=== PATIENT | male | born 1945 | race Caucasian/White ===

== ENCOUNTER 2017-10-14 08:35 | Emergency (ER) | payer OTHER, SELFPAY ==
[2017-10-14 08:43] VITALS: BP 160/82; PULSE 64; RESP 20; TEMP 36.8; O2SAT 96
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
[2017-10-14 09:38] LABS: Abs Immature Grans 0.03 k/cumm (0.0-0.09); Absolute Basophil Count 0.04 k/cumm (0.0-0.2); Absolute Eosinophil Count 0.25 k/cumm (0.0-0.7); Absolute Lymphocyte Count 1.79 k/cumm (1.2-3.4); Absolute Monocyte Count 0.89 k/cumm (0.11-0.7); Absolute Neutrophil Count 4.49 k/cumm (1.2-6.7); Basophils % 0.5; Eosinophils % 3.3; HCT 43.2 % (40.0-50.0); HGB 14.7 g/dL (13.5-17.5); Immature Grans % 0.4; Lymphocytes % 23.9; Mean Corpuscular Hemoglobin 30.1 pg (27.0-33.0); Mean Corpuscular Volume 88.3 fL (80-95); Mean Platelet Volume 11.1 fL (8.0-11.0); Monocytes % 11.9; Platelet Count 144 x1000/uL (130-400); RBC 4.89 m/cumm (4.50-6.00); RBC Distribution Width 13.7 % (11.8-14.1); White Blood Cell Count 7.49 k/cumm (4.4-10.8)
[2017-10-14 10:04] LABS: ALT 35 U/L (12-78); AST 18 U/L (15-37); Albumin 3.7 g/dL (3.4-5.0); Alkaline Phosphatase 103 U/L (46-116); Anion Gap 6.8 mmol/L (3-11); BUN 20 mg/dL (7-18); Bilirubin, Total 0.7 mg/dL (0.2-1.0); CO2 26.2 mmol/L (21.0-32.0); CREATININE 0.83 mg/dL (0.70-1.30); Calcium 8.8 mg/dL (8.5-10.1); Chloride 106 mmol/L (98-107); Glucose 125 mg/dL (70-100); Sodium 139 mmol/L (136-145); Total Protein 7.4 g/dL (6.4-8.2)
[2017-10-14 10:09] LABS: Troponin I < 0.02 ng/mL (0.00-0.06)
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
== END 2017-10-14 11:08 | disposition home or self-care (01) ==
PROVIDERS: Emergency Provider Student in an Organized Health Care Education/Training Program; PCP Family Medicine
DX: R07.89 Other chest pain (principal); M79.641 Pain in right hand; V53.0XXA Driver of pick-up truck or van injured in collision with car, pick-up truck or van in nontraffic accident, initial encounter; I10 Essential (primary) hypertension
CPT/HCPCS: 36415; 71250; 80053; 93005; 99285; 73110; 73130; 84484; 85025; 93010; 99284

== ENCOUNTER 2017-10-23 11:29 | Outpatient (RCR) | payer SELFPAY | END 2017-10-24 23:59 | disposition home or self-care (01) | LOC: CR 11:29 | PROVIDERS: PCP Family Medicine; Visit Provider Family Medicine | DX: Z95.5 Presence of coronary angioplasty implant and graft (principal); Z51.89 Encounter for other specified aftercare ==

== ENCOUNTER 2017-11-20 08:00 | Outpatient (RCR) | payer SELFPAY | END 2017-11-23 23:59 | disposition home or self-care (01) | LOC: CR 08:00 | PROVIDERS: PCP Family Medicine; Visit Provider Family Medicine | DX: Z95.5 Presence of coronary angioplasty implant and graft (principal); Z51.89 Encounter for other specified aftercare ==

== ENCOUNTER 2017-12-23 08:00 | Outpatient (RCR) | payer SELFPAY | END 2017-12-24 23:59 | disposition home or self-care (01) | LOC: CR 08:00 | PROVIDERS: PCP Family Medicine; Visit Provider Family Medicine | DX: Z95.5 Presence of coronary angioplasty implant and graft (principal); Z51.89 Encounter for other specified aftercare ==

== ENCOUNTER 2018-01-14 01:28 | Outpatient (CLI) | payer MEDICARE, BC, SELFPAY ==
[2018-01-14 11:17] LABS: Bilirubin Negative (Negative); Blood Negative (Negative); Clarity Clear; Glucose Negative (Negative); Ketones Negative (Negative); Leukocyte Esterase Negative (Negative); Nitrite Negative (Negative); Urobilinogen 0.2 EU/dL (Up TO 0.2); pH 5.5 (5-8)
[2018-01-14 11:23] LABS: Anion Gap 8.6 mmol/L (3-11); BUN 21 mg/dL (7-18); CO2 25.4 mmol/L (21.0-32.0); CREATININE 0.92 mg/dL (0.70-1.30); Calcium 9.5 mg/dL (8.5-10.1); Chloride 106 mmol/L (98-107); Glucose 122 mg/dL (70-100); Potassium 4.2 mmol/L (3.5-5.1); Sodium 140 mmol/L (136-145)
[2018-01-14 12:12] LABS: Hemoglobin A1C 5.6 % (4.5-6.2)
[2018-01-16 10:10] LABS: PSA, Screening 1.6 ng/ml (0-6.5)
== END 2018-01-14 01:48 ==
PROVIDERS: PCP Family Medicine; Visit Provider Family Medicine
DX: N40.2 Nodular prostate without lower urinary tract symptoms (principal); R73.03 Prediabetes; R39.9 Unspecified symptoms and signs involving the genitourinary system; Z12.5 Encounter for screening for malignant neoplasm of prostate
CPT/HCPCS: 36415; 80048; 84153; 81003; 83036

== ENCOUNTER 2018-01-20 02:07 | Outpatient (CLI) | payer MEDICARE, BC, SELFPAY ==
--- NOTE | 2018-01-20 09:00 | SATEXT_ITS ---
January 20, 2018 0900 h Assessment: Mr. Peters presents for nutritional counseling for prediabetes. His fasting blood sugar was 122. His A1C however was WNL. He is 67 and 220 lbs. His BMI is 35 consistent with class 2 obesity. Mr. Peters describes an active lifestyle. His dietary recall shows that he eats a banana, orange juice , yogurt in the morning. His lunch is a frozen meal or bologna and cheese and fruit and pudding. He describes his evening meal as typical meat, starch, veggie, however his portions are large. He says he goes back for seconds. He states he snacks in the evening, sometimes ice cream. Nutritional Diagnosis: Altered nutrition related laboratory value as indicated by high fasting blood glucose. Intervention: We discussed a carbohydrate consistent nutrition therapy for prediabetes. With regard to Mr. Peters's reports of over-eating in the evening , I suggested that he eat more at breakfast and that we make a meal plan of evenly sized meals. Based on his current eating pattern, I devised a meal plan of carbohydrate consistent and also calorie consistent meals and one snack in the evening consisting of 15 grams of carb or less, such popcorn. Encouraged Mr. Peters to first turn to veggies, then proteins if he wants seconds at meals. With regard to his weight and Mr. Peters's concern about his weight gain, encouraged him to drink at least 64 oz. of water daily and I made his meal plan low in sodium. I also discussed with him the importance of building up muscle as people age and muscle's role in calorie burning. We discussed that physical activity is very effective in preventing diabetes as well as other lifestyle changes. Mr. Peters verbalized a good understanding of our session. Monitoring and Evaluation: 1. Mr. Peters will self monitor and evaluate his progress. 2. Provided my contact information and encouraged Mr. Peters to return to follow up with me at any time. Thank you for the referral. Total time spent face to face with patient was 27 minutes.
== END 2018-01-20 02:27 ==
PROVIDERS: PCP Family Medicine; Visit Provider Dietitian, Registered
DX: R73.09 Other abnormal glucose (principal); Z68.35 Body mass index [BMI] 35.0-35.9, adult; Z71.3 Dietary counseling and surveillance
CPT/HCPCS: 97802

== ENCOUNTER 2018-01-22 08:00 | Outpatient (RCR) | payer SELFPAY | END 2018-01-23 23:59 | disposition home or self-care (01) | LOC: CR 08:00 | PROVIDERS: PCP Family Medicine; Visit Provider Family Medicine | DX: Z95.5 Presence of coronary angioplasty implant and graft (principal); Z51.89 Encounter for other specified aftercare ==

== ENCOUNTER 2018-02-19 15:03 | Outpatient (RCR) | payer SELFPAY | END 2018-02-23 23:59 | disposition home or self-care (01) | LOC: CR 15:03 | PROVIDERS: PCP Family Medicine; Visit Provider Family Medicine | DX: Z95.5 Presence of coronary angioplasty implant and graft (principal); Z51.89 Encounter for other specified aftercare ==

== ENCOUNTER 2018-03-26 08:00 | Outpatient (RCR) | payer SELFPAY | END 2018-03-26 23:59 | disposition home or self-care (01) | LOC: CR 08:00 | PROVIDERS: PCP Family Medicine; Visit Provider Family Medicine | DX: Z95.5 Presence of coronary angioplasty implant and graft (principal); Z51.89 Encounter for other specified aftercare ==

== ENCOUNTER 2018-04-14 08:00 | Outpatient (RCR) | payer SELFPAY | END 2018-04-23 23:59 | disposition home or self-care (01) | LOC: CR 08:00 | PROVIDERS: PCP Family Medicine; Visit Provider Family Medicine | DX: Z95.5 Presence of coronary angioplasty implant and graft (principal); Z51.89 Encounter for other specified aftercare ==

== ENCOUNTER 2018-05-21 08:00 | Outpatient (RCR) | payer SELFPAY | END 2018-05-24 23:59 | disposition home or self-care (01) | LOC: CR 08:00 | PROVIDERS: PCP Family Medicine; Visit Provider Family Medicine | DX: Z95.5 Presence of coronary angioplasty implant and graft (principal); Z51.89 Encounter for other specified aftercare ==

== ENCOUNTER 2018-06-23 08:00 | Outpatient (RCR) | payer SELFPAY | END 2018-06-23 23:59 | disposition home or self-care (01) | LOC: CR 08:00 | PROVIDERS: PCP Family Medicine; Visit Provider Family Medicine | DX: Z95.5 Presence of coronary angioplasty implant and graft (principal); Z51.89 Encounter for other specified aftercare ==

== ENCOUNTER 2018-06-24 05:10 | Outpatient (RCR) | payer SELFPAY | END 2018-07-24 23:59 | disposition home or self-care (01) | LOC: CR 05:10 | PROVIDERS: PCP Family Medicine; Visit Provider Family Medicine | DX: Z95.5 Presence of coronary angioplasty implant and graft (principal); Z51.89 Encounter for other specified aftercare ==

== ENCOUNTER 2018-07-23 13:30 | Outpatient (RCR) | payer SELFPAY | END 2018-07-24 23:59 | disposition home or self-care (01) | LOC: CR 13:30 | PROVIDERS: PCP Family Medicine; Visit Provider Family Medicine | DX: Z51.89 Encounter for other specified aftercare (principal) ==

== ENCOUNTER 2018-08-20 11:23 | Outpatient (RCR) | payer SELFPAY | END 2018-08-23 23:59 | disposition home or self-care (01) | LOC: CR 11:23 | PROVIDERS: PCP Family Medicine; Visit Provider Family Medicine | DX: Z51.89 Encounter for other specified aftercare (principal) ==

== ENCOUNTER 2018-09-22 13:26 | Outpatient (RCR) | payer SELFPAY | END 2018-09-23 23:59 | disposition home or self-care (01) | LOC: CR 13:26 | PROVIDERS: PCP Family Medicine; Visit Provider Family Medicine | DX: Z51.89 Encounter for other specified aftercare (principal) ==

== ENCOUNTER 2018-10-22 08:00 | Outpatient (RCR) | payer SELFPAY | END 2018-10-24 23:59 | disposition home or self-care (01) | LOC: CR 08:00 | PROVIDERS: PCP Family Medicine; Visit Provider Family Medicine | DX: Z51.89 Encounter for other specified aftercare (principal) ==

== ENCOUNTER 2018-11-19 11:55 | Outpatient (RCR) | payer SELFPAY | END 2018-11-23 23:59 | disposition home or self-care (01) | LOC: CR 11:55 | PROVIDERS: PCP Family Medicine; Visit Provider Family Medicine | DX: Z51.89 Encounter for other specified aftercare (principal) ==

== ENCOUNTER 2018-12-15 08:00 | Outpatient (RCR) | payer SELFPAY | END 2018-12-24 23:59 | disposition home or self-care (01) | LOC: CR 08:00 | PROVIDERS: PCP Family Medicine; Visit Provider Family Medicine | DX: Z51.89 Encounter for other specified aftercare (principal) ==

== ENCOUNTER 2019-01-19 15:14 | Outpatient (RCR) | payer SELFPAY | END 2019-01-23 23:59 | disposition home or self-care (01) | LOC: CR 15:14 | PROVIDERS: PCP Family Medicine; Visit Provider Family Medicine | DX: Z51.89 Encounter for other specified aftercare (principal) ==

== ENCOUNTER 2019-02-11 08:00 | Outpatient (RCR) | payer SELFPAY | END 2019-02-23 23:59 | disposition home or self-care (01) | LOC: CR 08:00 | PROVIDERS: PCP Family Medicine; Visit Provider Family Medicine | DX: Z51.89 Encounter for other specified aftercare (principal) ==

== ENCOUNTER 2019-03-17 02:17 | Outpatient (CLI) | payer MEDICARE, BC, SELFPAY ==
[2019-03-17 11:59] LABS: Anion Gap 10.8 mmol/L (3-11); BUN 20 mg/dL (7-18); CO2 25.2 mmol/L (21.0-32.0); CREATININE 0.88 mg/dL (0.70-1.30); Calcium 9.1 mg/dL (8.5-10.1); Chloride 109 mmol/L (98-107); Glucose 116 mg/dL (74-106); Potassium 4.1 mmol/L (3.5-5.1); Sodium 145 mmol/L (136-145)
== END 2019-03-17 02:37 ==
PROVIDERS: PCP Family Medicine; Visit Provider Family Medicine
DX: I25.10 Atherosclerotic heart disease of native coronary artery without angina pectoris (principal)
CPT/HCPCS: 36415; 80048

== ENCOUNTER 2019-03-25 08:00 | Outpatient (RCR) | payer SELFPAY | END 2019-03-26 23:59 | disposition home or self-care (01) | LOC: CR 08:00 | PROVIDERS: PCP Family Medicine; Visit Provider Family Medicine | DX: Z51.89 Encounter for other specified aftercare (principal) ==

== ENCOUNTER 2019-03-27 03:47 | Outpatient (RCR) | payer SELFPAY | END 2019-04-24 23:59 | disposition home or self-care (01) | LOC: CR 03:47 | PROVIDERS: PCP Family Medicine; Visit Provider Family Medicine | DX: Z51.89 Encounter for other specified aftercare (principal) ==

== ENCOUNTER 2019-04-25 03:31 | Outpatient (RCR) | payer SELFPAY | END 2019-05-25 23:59 | disposition home or self-care (01) | LOC: CR 03:31 | PROVIDERS: PCP Family Medicine; Visit Provider Family Medicine | DX: Z51.89 Encounter for other specified aftercare (principal) ==

== ENCOUNTER → 2019-07-16 08:00 | Outpatient (BNVA) | payer MEDICARE, BC, SELFPAY | PROVIDERS: PCP Family Medicine; Referring Provider Family Medicine; Visit Provider Surgery | DX: Z12.11 Encounter for screening for malignant neoplasm of colon (principal); Z86.010 Personal history of colon polyps ==

== ENCOUNTER 2019-08-02 07:09 | Day surgery (SDC) | payer MEDICARE, BC, SELFPAY ==
--- NOTE | 2019-08-02 06:52 | W.COLOREPORT ---
Date of service: 08/02/19 Time of Service: 08:51 Colonoscopy Report Date of procedure: 08/02/19 Pre-op diagnosis general: Hx of polyps Post-op diagnosis procedure note: same (10 polyps) Procedure: Colonoscopy with polypectomy Surgeon: Andie Abarca Anesthesia proc note operative: other (General/ ASA 2/ andrew Livingston CRNA) Estimated blood loss (mL): 3 Pathology: other (10 polyps) Complications: None Disposition: same day Indications: 74 year old male with a PMHx of tubular and tubulovillous adenomas in 2017 who is here to discuss a colonoscopy. He denies any changes in bowel habits. He has a family history of colon cancer in his sister. No cardiac complains since he had a stent placed more then 5 years ago. Plan for Colonoscopy under sedation Risks, benefits and complications have been reviewed. Complications include but are not limited to bleeding, pain, perforation, missed small lesion/polyp, sore throat, aspiration and adverse reaction to the medications. Questions were entertained and answered to their satisfaction and they wished to proceed. No guarantees were given or implied Prep: Miralax/Dulcolax Procedure Start Time: 08:51 Procedure End Time: 09:32 Retraction Time: 30 minutes Findings: multiple polyps throughout the colon Procedure Description: After informed consent was obtained the patient was taken to the procedure room and placed in a left decubitous position. Monitors were applied and a time out was done. The patients name, date of , procedure, allergies to medications and metal in their body was reviewed. The patient was then sedated. Once sedated and comfortable a rectal exam was done. External exam revealed a small skin tag. Internal exam revealed a normal sphincter tone and no palpable masses. The prostate felt smooth. The scope was then introduced and retro-flexed. No internal hemorrhoids were identified. The scope was then advanced to the cecum without difficulty. The TI and appendiceal orifice were identified. The prep was good. The scope was then slowly retracted over 32 minutes back into the rectum. Polyps were removed with cold forceps in the ascending colon x2, Transverse colon x4, descending colon x3, and rectal polyp x1. The scope was removed and the patient was woken up and taken back to Same day surgery in stable condition. The patient tolerated the procedure well and there were no immediate complications. Follow up: The patient should follow up in 3-5 years unless they develop changes in bowel habits or other new gastrointestinal complaints.
--- NOTE | 2019-08-02 06:53 | W.PM.DSUDISC ---
Discharge Plan Disposition Patient Disposition: HOME Condition: Good Discharge Details Reason For Visit: Hx of colon polyps Attending Provider: Andie Abarca Primary Care Provider: Vlad Livingston Home Meds and New Rx's Prescriptions: Continued tamsulosin [Flomax] 0.4 mg capsule 0.4 mg PO DAILY Qty: 90 RF: 4 terbinafine HCl 1 % cream 1 applic TP BID Qty: 30 RF: 2 loratadine 10 MG tablet,disintegrating 10 mg PO DAILY PRNRF: 0 aspirin [Aspirin Low-Strength] 81 MG tablet,chewable 81 mg PO DAILY RF: 0 nitroglycerin 0.4 mg tablet, sublingual 0.4 mg Sublingual ONCE PRN (Reason: chest pain) Qty: 50 RF: 0 atorvastatin 80 mg tablet 80 mg PO DAILY Qty: 90 RF: 4 Discontinued bisacodyl [Dulcolax (bisacodyl)] 5 mg tablet,delayed release (DR/EC) 5 mg PO ONCE Qty: 4 RF: 0 polyethylene glycol 3350 17 gram powder in packet 255 g PO DAILY Qty: 15 RF: 0 No Action pseudoephedrine HCl [Sudafed] 30 mg Tablet 30 mg PO ONCE PRNRF: 0 Discharge Instructions Instructions: Colorectal Polyps (DC) Additional Instructions: Findings: 10 small polyps Follow up: 3-5 years Please call if you develop: fevers >101.5 Nausea or Vomiting Abdominal pain that is not transient DAY SURGERY UNIT POST ENDOSCOPY INSTRUCTIONS 1. Because there will be medication in your system for the next 24 hours, you may feel a little sleepy. Your coordination will be affected. Therefore: a. Do not drive or operate dangerous equipment for 24 hours. b. Do not drink alcohol beverages for 24 hours (not even beer). c. Plan to go home and rest for the day. 2. Generally there are no restrictions on your activity after a day or so has gone by, but you may feel a bit fatigued for a few days. 3 After you arrive home you may have a light meal and return to a normal diet as you can tolerate it without feeling sick to your stomach. 4. After surgery, you may feel pain or discomfort. This should be only transient, but if it persists please contact your doctor. 5. If there are any questions regarding the findings of your procedure, please feel free to contact your doctor. 6. If you are unable to contact your doctor with a problem, contact the [facility] at [phone]. 4. Continue all your regular medications unless directed otherwise. I understand the above instructions and have no questions. Signature of Patient or Responsible Adult Escort Date/Time Name of Responsible Adult Escort Signature of Nurse Date/Time Activity:: Activity as Tolerated Diet:: As Tolerated Discharge Orders Discharge Orders: Discharge Order (Routine); Ordered 08/02/19 Ordered By: Andie Abarca
[2019-08-02 07:15] VITALS: PULSE 74; RESP 19; TEMP 36.8; O2SAT 96
[2019-08-02] MEDS: Lactated Ringers 1,000 ML 80 ML IV (07:45)
--- NOTE | 2019-08-02 08:50 | BOWEL_PTH ---
PATIENT: Osbaldo Peters LOC: [facility] U#:[id number] AGE/SX: 74/M ROOM: RE08/02/[address]: Andie Abarca MD : [id number] BED: DIS: 08/02/2019 SPEC #: [id number] RECD: 08/02/19 12:24 STATUS: SUNDAR REAmy #: [id number] JILL: 08/02/19 08:[address]: Andie Abarca DEPT: Surgical Specimen RECD BY: Florinda Adler ENTERED: 08/02/19 12:26 SP TYPE: Bowel OTHR DR: Vlad Livingston MD Tissues: 1 - BIOPSY BOWEL 2 - BIOPSY BOWEL 3 - BIOPSY BOWEL 4 - BIOPSY BOWEL Procedures: GROSS AND MICRO LEVEL 4 Comments: [id number]
[2019-08-02 10:12] VITALS: BP 136/71; PULSE 59; RESP 18; TEMP 36.3; O2SAT 97
== END 2019-08-02 10:32 | disposition home or self-care (01) ==
PROVIDERS: PCP Family Medicine; Visit Provider Surgery
PROC: 0DJD8ZZ Inspection of Lower Intestinal Tract, Via Natural or Artificial Opening Endoscopic (ICD-10-PCS; CPT 45378; principal; 2019-08-02 08:15)
DX: Z12.11 Encounter for screening for malignant neoplasm of colon (principal); Z86.010 Personal history of colon polyps; Z80.0 Family history of malignant neoplasm of digestive organs; K64.4 Residual hemorrhoidal skin tags; D12.1 Benign neoplasm of appendix; D12.3 Benign neoplasm of transverse colon; K63.5 Polyp of colon; K62.1 Rectal polyp
CPT/HCPCS: 45380; 88305; J2001

== ENCOUNTER 2020-03-21 03:34 | Outpatient (CLI) | payer MEDICARE, BC, SELFPAY ==
[2020-03-21 12:41] LABS: HCT 45.3 % (40.0-50.0); HGB 15.1 g/dL (13.5-17.5); MCH 29.8 pg (27.0-33.0); MCHC 33.3 % (32.0-36.0); MCV 89.5 fL (80-95); MPV 12.9 fL (8.0-11.0); RBC 5.06 10^6/uL (4.36-5.78); RDW 12.8 % (11.8-14.1); RDW-SD 42.3 fL; WBC 7.33 10^3/uL (4.4-10.8)
[2020-03-21 13:14] LABS: CREATININE 0.94 mg/dL (0.70-1.30); Calculated LDL 47 mg/dL (<100); Cholesterol 118 mg/dL (<200); HDL Cholesterol 53 mg/dL (40-60); TSH (W/Ref FT4) 1.09 uIU/mL (0.36-3.74); Triglyceride 92 mg/dL (<150)
[2020-03-21 13:30] LABS: Hemoglobin A1C 5.8 % (<5.7)
== END 2020-03-21 03:54 ==
PROVIDERS: PCP Family Medicine; Visit Provider Family Medicine
DX: D64.9 Anemia, unspecified (principal); I10 Essential (primary) hypertension; E78.5 Hyperlipidemia, unspecified; R73.9 Hyperglycemia, unspecified; E03.9 Hypothyroidism, unspecified
CPT/HCPCS: 36415; 80061; 85027; 82565; 83036; 84443

== ENCOUNTER 2020-08-22 09:00 | Outpatient (RCR) | payer SELFPAY ==
[2020-07-25 15:51] VITALS: BP 127/58; PULSE 68
[2020-07-27 09:00] VITALS: BP 143/70; PULSE 73
[2020-08-01 09:03] VITALS: BP 147/62; PULSE 76
[2020-08-03 08:58] VITALS: BP 140/76; PULSE 66
[2020-08-08 08:59] VITALS: BP 149/79; PULSE 77
[2020-08-10 09:00] VITALS: BP 142/75; PULSE 67
[2020-08-17 09:03] VITALS: BP 139/68; PULSE 62
[2020-08-22 09:07] VITALS: BP 136/82; PULSE 63
== END 2020-08-23 23:59 | disposition home or self-care (01) ==
LOC: CR 09:00
PROVIDERS: PCP Nurse Practitioner Family; Visit Provider Family Medicine
DX: Z51.89 Encounter for other specified aftercare (principal)

== ENCOUNTER 2020-09-21 09:00 | Outpatient (RCR) | payer SELFPAY ==
[2020-08-24 00:11] VITALS: BP 136/82; PULSE 63
[2020-08-24 09:02] VITALS: BP 142/85; PULSE 60
[2020-08-29 09:01] VITALS: BP 138/78; PULSE 64; O2SAT 94
[2020-08-31 10:09] VITALS: BP 149/73; PULSE 61
[2020-09-05 09:02] VITALS: BP 150/84; PULSE 69
[2020-09-07 09:01] VITALS: BP 137/77; PULSE 60
[2020-09-12 09:08] VITALS: BP 139/64; PULSE 67
[2020-09-14 09:13] VITALS: BP 134/80; PULSE 67
[2020-09-19 09:03] VITALS: BP 132/62; PULSE 63
[2020-09-21 09:00] VITALS: BP 144/82; PULSE 65
== END 2020-09-23 23:59 | disposition home or self-care (01) ==
LOC: CR 09:00
PROVIDERS: PCP Nurse Practitioner Family; Visit Provider Family Medicine
DX: Z51.89 Encounter for other specified aftercare (principal)

== ENCOUNTER 2020-10-24 09:00 | Outpatient (RCR) | payer SELFPAY ==
[2020-09-24 00:20] VITALS: BP 144/82; PULSE 65
[2020-09-26 09:08] VITALS: BP 148/85; PULSE 63
[2020-09-28 09:04] VITALS: BP 145/80; PULSE 65
[2020-10-03 08:58] VITALS: BP 145/75; PULSE 64
[2020-10-05 09:05] VITALS: BP 131/69; PULSE 70
[2020-10-10 09:33] VITALS: BP 146/79; PULSE 81
[2020-10-12 09:07] VITALS: BP 140/64; PULSE 66
[2020-10-17 09:21] VITALS: BP 159/96; PULSE 65
[2020-10-19 09:02] VITALS: BP 147/74; PULSE 57
[2020-10-24 09:06] VITALS: BP 135/78; PULSE 61
== END 2020-10-24 23:59 | disposition home or self-care (01) ==
LOC: CR 09:00
PROVIDERS: PCP Nurse Practitioner Family; Visit Provider Family Medicine
DX: Z51.89 Encounter for other specified aftercare (principal); I25.2 Old myocardial infarction

== ENCOUNTER 2020-11-23 09:00 | Outpatient (RCR) | payer SELFPAY ==
[2020-10-25 00:09] VITALS: BP 135/78; PULSE 61
[2020-10-26 09:02] VITALS: BP 143/78; PULSE 72
[2020-10-31 13:32] VITALS: BP 123/79; PULSE 54
[2020-11-02 09:00] VITALS: BP 135/78; PULSE 63
[2020-11-07 09:06] VITALS: BP 124/75; PULSE 61
[2020-11-09 09:59] VITALS: BP 146/74; PULSE 64
[2020-11-14 09:47] VITALS: BP 159/76; PULSE 62
[2020-11-16 09:46] VITALS: BP 116/73; PULSE 63
[2020-11-21 09:11] VITALS: BP 163/71; PULSE 61
[2020-11-23 08:55] VITALS: BP 134/66; PULSE 60
[2020-11-28 09:00] VITALS: BP 144/86; PULSE 60
== END 2020-11-23 23:59 | disposition home or self-care (01) ==
LOC: CR 09:00
PROVIDERS: PCP Nurse Practitioner Family; Visit Provider Family Medicine
DX: Z51.89 Encounter for other specified aftercare (principal)

== ENCOUNTER 2020-12-21 09:00 | Outpatient (RCR) | payer SELFPAY ==
[2020-11-24 00:20] VITALS: BP 134/66; PULSE 60
[2020-11-30 09:06] VITALS: BP 151/76; PULSE 58
[2020-12-05 09:47] VITALS: BP 127/77; PULSE 61
[2020-12-07 09:26] VITALS: BP 155/86; PULSE 61
[2020-12-12 09:00] VITALS: BP 150/77; PULSE 62
[2020-12-14 09:03] VITALS: BP 147/79; PULSE 61
[2020-12-19 09:10] VITALS: BP 149/77; PULSE 77
[2020-12-21 09:02] VITALS: BP 151/78; PULSE 70
== END 2020-12-24 23:59 | disposition home or self-care (01) ==
LOC: CR 09:00
PROVIDERS: PCP Nurse Practitioner Family; Visit Provider Family Medicine
DX: Z51.89 Encounter for other specified aftercare (principal); R69 Illness, unspecified

== ENCOUNTER 2021-01-23 09:00 | Outpatient (RCR) | payer SELFPAY ==
[2020-12-25 00:23] VITALS: BP 151/78; PULSE 70
[2020-12-26 09:09] VITALS: BP 146/82; PULSE 61
[2020-12-28 08:59] VITALS: BP 130/75; PULSE 62
[2021-01-02 09:09] VITALS: BP 143/81; PULSE 59
[2021-01-04 11:02] VITALS: BP 143/84; PULSE 55
[2021-01-11 08:52] VITALS: BP 147/84; PULSE 69
[2021-01-16 09:07] VITALS: BP 134/77; PULSE 69
[2021-01-23 09:29] VITALS: BP 132/69; PULSE 72
== END 2021-01-23 23:59 | disposition home or self-care (01) ==
LOC: CR 09:00
PROVIDERS: PCP Nurse Practitioner Family; Visit Provider Family Medicine
DX: Z51.89 Encounter for other specified aftercare (principal); R69 Illness, unspecified

== ENCOUNTER 2021-01-29 08:51 | Outpatient (CLI) | payer SELFPAY ==
--- NOTE | 2021-01-29 08:45 | RT.EKG_ITS ---
APPROVED REPORT Exam: Resting ECG Reason for Exam: chest pain Patient Location: O HR:69 bpm ECG Measurements Heart Rate 69 AXIS AZ 162 P 0 QRSd 151 QRS 12 QT 413 T -2 QTc 443 Conclusion Sinus rhythm...normal P axis, V-rate 50- 99 Multiple ventricular premature complexes...V complexes w/ short R-R intervls Right bundle branch block...QRSd>120, terminal axis(90,270) Anterolateral infarct, old...Q>40mS, abnrm ST-T, V3-V6,I,aVL
== END 2021-01-29 08:52 | disposition home or self-care (01) ==
LOC: DI.CARD 08:53
PROVIDERS: PCP Nurse Practitioner Family; Visit Provider Internal Medicine Cardiovascular Disease
DX: R07.9 Chest pain, unspecified (principal)
CPT/HCPCS: 93010

== ENCOUNTER → 2021-01-29 10:46 | Outpatient (BNVA) | payer MEDICARE, BC, SELFPAY | PROVIDERS: PCP Nurse Practitioner Family; Referring Provider Nurse Practitioner Family; Visit Provider Internal Medicine Cardiovascular Disease | DX: I25.10 Atherosclerotic heart disease of native coronary artery without angina pectoris (principal); I25.2 Old myocardial infarction; R21 Rash and other nonspecific skin eruption | CPT/HCPCS: 93005; 99204; 99214 ==

== ENCOUNTER 2021-02-22 09:00 | Outpatient (RCR) | payer SELFPAY ==
[2021-01-24 00:20] VITALS: BP 132/69; PULSE 72
[2021-01-25 08:58] VITALS: BP 151/83; PULSE 73
[2021-01-30 10:25] VITALS: BP 144/80; PULSE 57
[2021-02-01 08:50] VITALS: BP 145/79; PULSE 62
[2021-02-06 08:59] VITALS: BP 144/78; PULSE 61
[2021-02-08 09:29] VITALS: BP 145/81; PULSE 78
[2021-02-13 08:52] VITALS: BP 150/77; PULSE 73
[2021-02-15 09:06] VITALS: BP 145/77; PULSE 66
[2021-02-20 09:03] VITALS: BP 144/76; PULSE 69
[2021-02-22 09:04] VITALS: BP 146/75; PULSE 59
== END 2021-02-23 23:59 | disposition home or self-care (01) ==
LOC: CR 09:00
PROVIDERS: PCP Nurse Practitioner Family; Visit Provider Family Medicine
DX: Z51.89 Encounter for other specified aftercare (principal)

== ENCOUNTER 2021-02-26 15:08 | Outpatient (RCR) | payer SELFPAY ==
[2021-02-27 08:57] VITALS: BP 142/60; PULSE 88
== END 2021-03-26 23:59 | disposition home or self-care (01) ==
LOC: CR 15:08
PROVIDERS: PCP Nurse Practitioner Family; Visit Provider Family Medicine
DX: R69 Illness, unspecified (principal)

== ENCOUNTER 2021-05-22 09:00 | Outpatient (RCR) | payer SELFPAY ==
[2021-05-08 09:08] VITALS: BP 157/71; PULSE 61
[2021-05-10 09:01] VITALS: BP 133/66; PULSE 64
[2021-05-15 09:02] VITALS: BP 152/69; PULSE 68; O2SAT 97
[2021-05-17 09:01] VITALS: BP 148/73; PULSE 66
[2021-05-22 09:01] VITALS: BP 144/76; PULSE 68
[2021-05-24 09:00] VITALS: BP 146/72; PULSE 94
== END 2021-05-24 23:59 | disposition home or self-care (01) ==
LOC: CR 09:00
PROVIDERS: PCP Nurse Practitioner Family; Visit Provider Family Medicine
DX: R69 Illness, unspecified (principal)

== ENCOUNTER 2021-06-21 09:00 | Outpatient (RCR) | payer SELFPAY ==
[2021-05-25 00:06] VITALS: BP 146/72; PULSE 94
[2021-05-29 09:05] VITALS: BP 136/65; PULSE 75
[2021-05-31 09:09] VITALS: BP 132/67; PULSE 69
[2021-06-05 09:18] VITALS: BP 137/64; PULSE 66
[2021-06-07 08:54] VITALS: BP 133/72; PULSE 80
[2021-06-12 09:43] VITALS: BP 138/67; PULSE 70
[2021-06-14 09:47] VITALS: BP 128/65; PULSE 67; O2SAT 94
[2021-06-19 08:59] VITALS: BP 145/68; PULSE 68
[2021-06-21 09:05] VITALS: BP 142/63; PULSE 74
== END 2021-06-23 23:59 | disposition home or self-care (01) ==
LOC: CR 09:00
PROVIDERS: PCP Nurse Practitioner Family; Visit Provider Internal Medicine Cardiovascular Disease
DX: R69 Illness, unspecified (principal)

== ENCOUNTER 2021-07-17 09:00 | Outpatient (RCR) | payer SELFPAY ==
[2021-06-24 00:04] VITALS: BP 142/63; PULSE 74
[2021-06-26 09:08] VITALS: BP 133/62; PULSE 60
[2021-06-28 08:57] VITALS: BP 135/66; PULSE 67
[2021-07-10 10:14] VITALS: BP 122/74; PULSE 65
[2021-07-17 09:33] VITALS: BP 133/68; PULSE 78
== END 2021-07-24 23:59 | disposition home or self-care (01) ==
LOC: CR 09:00
PROVIDERS: PCP Nurse Practitioner Family; Visit Provider Internal Medicine Cardiovascular Disease
DX: R69 Illness, unspecified (principal)

== ENCOUNTER 2021-08-23 15:05 | Outpatient (RCR) | payer SELFPAY ==
[2021-07-25 00:03] VITALS: BP 133/68; PULSE 78
[2021-07-31 08:59] VITALS: BP 139/63; PULSE 57
[2021-08-02 09:11] VITALS: BP 139/75; PULSE 63
[2021-08-07 09:33] VITALS: BP 151/74; PULSE 54
[2021-08-09 09:03] VITALS: BP 130/77; PULSE 73
[2021-08-14 09:03] VITALS: BP 138/66; PULSE 80
[2021-08-16 09:00] VITALS: BP 144/62; PULSE 69
[2021-08-21 09:42] VITALS: BP 145/55; PULSE 79
[2021-08-23 09:00] VITALS: BP 130/63; PULSE 65
== END 2021-08-23 23:59 | disposition home or self-care (01) ==
LOC: CR 15:05
PROVIDERS: PCP Nurse Practitioner Family; Visit Provider Internal Medicine Cardiovascular Disease
DX: R69 Illness, unspecified (principal)

== ENCOUNTER 2021-09-06 02:58 | Outpatient (CLI) | payer MEDICARE, BC, SELFPAY ==
[2021-09-06 12:43] LABS: CREATININE 0.9 mg/dL (0.70-1.30)
== END 2021-09-06 02:59 | disposition home or self-care (01) ==
LOC: LOS 02:59
PROVIDERS: PCP Nurse Practitioner Family; Visit Provider Nurse Practitioner Family
DX: I10 Essential (primary) hypertension (principal)
CPT/HCPCS: 36415; 82565

== ENCOUNTER 2021-09-20 08:59 | Outpatient (RCR) | payer SELFPAY ==
[2021-08-28 09:22] VITALS: BP 136/64; PULSE 61
[2021-08-30 09:12] VITALS: BP 135/67; PULSE 64
[2021-09-04 08:56] VITALS: BP 137/65; PULSE 71
[2021-09-06 08:57] VITALS: BP 131/61; PULSE 76
[2021-09-11 08:57] VITALS: BP 156/78; PULSE 62
[2021-09-13 11:16] VITALS: BP 144/76; PULSE 73
[2021-09-18 10:07] VITALS: BP 136/82; PULSE 70
[2021-09-20 08:55] VITALS: BP 137/73; PULSE 71
== END 2021-09-23 23:59 | disposition home or self-care (01) ==
LOC: CR 08:59
PROVIDERS: PCP Nurse Practitioner Family; Visit Provider Internal Medicine Cardiovascular Disease
DX: R69 Illness, unspecified (principal)

== ENCOUNTER 2021-10-23 09:00 | Outpatient (RCR) | payer SELFPAY ==
[2021-09-24 00:02] VITALS: BP 137/73; PULSE 71
[2021-09-25 09:17] VITALS: BP 143/79; PULSE 69
[2021-09-27 09:24] VITALS: BP 137/66; PULSE 59
[2021-10-02 09:27] VITALS: BP 146/78; PULSE 64
[2021-10-04 09:03] VITALS: BP 145/74; PULSE 63
[2021-10-09 09:00] VITALS: BP 130/61; PULSE 69
[2021-10-11 09:00] VITALS: BP 145/71; PULSE 71
[2021-10-16 08:56] VITALS: BP 133/85; PULSE 67; O2SAT 95
[2021-10-18 09:00] VITALS: BP 140/62; PULSE 63
[2021-10-23 09:03] VITALS: BP 149/77; PULSE 67
== END 2021-10-24 23:59 | disposition home or self-care (01) ==
LOC: CR 09:00
PROVIDERS: PCP Nurse Practitioner Family; Visit Provider Internal Medicine Cardiovascular Disease
DX: R69 Illness, unspecified (principal)

== ENCOUNTER 2021-11-22 08:59 | Outpatient (RCR) | payer SELFPAY ==
[2021-10-25 00:14] VITALS: BP 149/77; PULSE 67
[2021-10-25 08:59] VITALS: BP 136/75; PULSE 73
[2021-10-30 08:57] VITALS: BP 137/73; PULSE 60
[2021-11-06 08:57] VITALS: BP 148/84; PULSE 63
[2021-11-08 08:58] VITALS: BP 132/64; PULSE 62
[2021-11-13 09:04] VITALS: BP 138/77; PULSE 63
[2021-11-15 09:03] VITALS: BP 133/70; PULSE 74
[2021-11-20 09:02] VITALS: BP 130/61; PULSE 69
[2021-11-22 09:00] VITALS: BP 140/61; PULSE 70
== END 2021-11-23 23:59 | disposition home or self-care (01) ==
LOC: CR 08:59
PROVIDERS: PCP Nurse Practitioner Family; Visit Provider Internal Medicine Cardiovascular Disease
DX: R69 Illness, unspecified (principal)

== ENCOUNTER 2021-12-20 08:40 | Outpatient (RCR) | payer SELFPAY ==
[2021-11-24 00:20] VITALS: BP 140/61; PULSE 70
[2021-11-27 09:04] VITALS: BP 134/64; PULSE 56
[2021-11-29 09:02] VITALS: BP 141/61; PULSE 54
[2021-12-04 08:58] VITALS: BP 149/76; PULSE 73
[2021-12-06 09:31] VITALS: BP 128/59; PULSE 64
[2021-12-11 09:01] VITALS: BP 145/63; PULSE 61
[2021-12-13 09:54] VITALS: BP 142/66; PULSE 61
[2021-12-18 09:01] VITALS: BP 138/58; PULSE 68
[2021-12-20 08:41] VITALS: BP 142/53; PULSE 61
== END 2021-12-24 23:59 | disposition home or self-care (01) ==
LOC: CR 08:40
PROVIDERS: PCP Nurse Practitioner Family; Visit Provider Internal Medicine Cardiovascular Disease
DX: R69 Illness, unspecified (principal)
CPT/HCPCS: S9472

== ENCOUNTER 2021-12-24 03:27 | Outpatient (CLI) | payer MEDICARE, BC, SELFPAY ==
[2021-12-24 12:51] LABS: Potassium 4.4 mmol/L (3.5-5.1)
== END 2021-12-24 03:28 | disposition home or self-care (01) ==
PROVIDERS: PCP Nurse Practitioner Family; Visit Provider Nurse Practitioner Family
DX: I10 Essential (primary) hypertension (principal)
CPT/HCPCS: 36415; 84132

== ENCOUNTER 2022-01-22 09:03 | Outpatient (RCR) | payer SELFPAY ==
[2021-12-25 00:19] VITALS: BP 142/53; PULSE 61
[2021-12-25 11:34] VITALS: BP 140/56; PULSE 59
[2021-12-27 09:02] VITALS: BP 142/56; PULSE 6
[2022-01-01 08:57] VITALS: BP 135/63; PULSE 67
[2022-01-03 08:59] VITALS: BP 132/63; PULSE 69
[2022-01-08 08:58] VITALS: BP 140/70; PULSE 61
[2022-01-10 08:57] VITALS: BP 153/64; PULSE 80
[2022-01-15 09:00] VITALS: BP 142/69; PULSE 77
[2022-01-22 09:17] VITALS: BP 145/70; PULSE 67
== END 2022-01-23 23:59 | disposition home or self-care (01) ==
LOC: CR 09:03
PROVIDERS: PCP Nurse Practitioner Family; Visit Provider Internal Medicine Cardiovascular Disease
DX: R69 Illness, unspecified (principal)

== ENCOUNTER 2022-01-25 02:07 | Outpatient (CLI) | payer MEDICARE, BC, SELFPAY | END 2022-01-25 02:08 | disposition home or self-care (01) | LOC: LOS 02:07 | PROVIDERS: PCP Nurse Practitioner Family; Visit Provider Nurse Practitioner Family | DX: N40.0 Benign prostatic hyperplasia without lower urinary tract symptoms (principal); Z12.5 Encounter for screening for malignant neoplasm of prostate | CPT/HCPCS: 36415; 84153 ==

== ENCOUNTER → 2022-01-28 10:37 | Outpatient (BNVA) | payer MEDICARE, BC, SELFPAY | PROVIDERS: PCP Nurse Practitioner Family; Referring Provider Nurse Practitioner Family; Visit Provider Internal Medicine Cardiovascular Disease | DX: I25.10 Atherosclerotic heart disease of native coronary artery without angina pectoris (principal); I25.2 Old myocardial infarction; Z95.5 Presence of coronary angioplasty implant and graft | CPT/HCPCS: 99213 ==

== ENCOUNTER 2022-02-21 09:04 | Outpatient (RCR) | payer SELFPAY ==
[2022-01-24 00:08] VITALS: BP 145/70; PULSE 67
[2022-01-24 09:31] VITALS: BP 151/72; PULSE 63
[2022-01-29 10:10] VITALS: BP 141/71; PULSE 65
[2022-01-31 09:00] VITALS: BP 138/68; PULSE 82
[2022-02-05 09:00] VITALS: BP 144/69; PULSE 65
[2022-02-07 08:55] VITALS: BP 142/65; PULSE 69
[2022-02-12 09:03] VITALS: BP 140/68; PULSE 63
[2022-02-14 09:27] VITALS: BP 146/70; PULSE 70
[2022-02-19 09:03] VITALS: BP 146/70; PULSE 64
[2022-02-21 09:03] VITALS: BP 139/66; PULSE 65
== END 2022-02-23 23:59 | disposition home or self-care (01) ==
LOC: CR 09:04
PROVIDERS: PCP Nurse Practitioner Family; Visit Provider Internal Medicine Cardiovascular Disease
DX: R69 Illness, unspecified (principal)

== ENCOUNTER 2022-03-21 09:03 | Outpatient (RCR) | payer SELFPAY ==
[2022-02-24 00:05] VITALS: BP 139/66; PULSE 65
[2022-02-26 09:03] VITALS: BP 151/64; PULSE 67
[2022-02-28 08:56] VITALS: BP 147/68; PULSE 74
[2022-03-05 08:55] VITALS: BP 141/64; PULSE 65
[2022-03-12 09:06] VITALS: BP 150/65; PULSE 62
[2022-03-14 09:09] VITALS: BP 146/74; PULSE 76
[2022-03-19 09:07] VITALS: BP 142/71; PULSE 67
[2022-03-21 09:11] VITALS: BP 142/72; PULSE 70
== END 2022-03-26 23:59 | disposition home or self-care (01) ==
LOC: CR 09:03
PROVIDERS: PCP Nurse Practitioner Family; Visit Provider Internal Medicine Cardiovascular Disease
DX: R69 Illness, unspecified (principal)

== ENCOUNTER 2022-05-16 09:06 | Outpatient (RCR) | payer SELFPAY ==
[2022-05-07 09:11] VITALS: BP 136/74; PULSE 72
[2022-05-14 09:32] VITALS: BP 149/65; PULSE 63
[2022-05-16 09:10] VITALS: BP 133/78; PULSE 69
[2022-05-28 09:00] VITALS: BP 136/72; PULSE 70
== END 2022-05-24 23:59 | disposition home or self-care (01) ==
LOC: CR 09:06
PROVIDERS: PCP Nurse Practitioner Family; Visit Provider Internal Medicine Cardiovascular Disease

== ENCOUNTER 2022-06-20 09:04 | Outpatient (RCR) | payer SELFPAY ==
[2022-05-25 00:11] VITALS: BP 133/78; PULSE 69
[2022-05-30 09:04] VITALS: BP 148/71; PULSE 78
[2022-06-04 09:04] VITALS: BP 138/74; PULSE 82
[2022-06-06 09:00] VITALS: BP 134/72; PULSE 76
[2022-06-11 08:58] VITALS: BP 135/62; PULSE 71
[2022-06-13 09:02] VITALS: BP 136/57; PULSE 62
[2022-06-18 10:11] VITALS: BP 152/58; PULSE 84
[2022-06-20 09:11] VITALS: BP 138/68; PULSE 80
== END 2022-06-23 23:59 | disposition home or self-care (01) ==
LOC: CR 09:04
PROVIDERS: PCP Nurse Practitioner Family; Visit Provider Internal Medicine Cardiovascular Disease
DX: R69 Illness, unspecified (principal)

== ENCOUNTER 2022-07-23 09:06 | Outpatient (RCR) | payer SELFPAY ==
[2022-06-24 00:06] VITALS: BP 138/68; PULSE 80
[2022-06-25 09:16] VITALS: BP 132/64; PULSE 74
[2022-06-27 09:15] VITALS: BP 129/66; PULSE 69
[2022-07-02 09:11] VITALS: BP 142/71; PULSE 58
[2022-07-04 09:29] VITALS: BP 136/66; PULSE 67
[2022-07-09 09:03] VITALS: BP 135/58; PULSE 74
[2022-07-11 08:59] VITALS: BP 147/58; PULSE 71
[2022-07-16 09:06] VITALS: BP 143/67; PULSE 81
[2022-07-18 09:48] VITALS: BP 145/68; PULSE 77
[2022-07-23 09:32] VITALS: BP 135/83; PULSE 86
== END 2022-07-24 23:59 | disposition home or self-care (01) ==
LOC: CR 09:06
PROVIDERS: PCP Nurse Practitioner Family; Visit Provider Internal Medicine Cardiovascular Disease

== ENCOUNTER 2022-08-22 09:20 | Outpatient (RCR) | payer SELFPAY ==
[2022-07-25 00:14] VITALS: BP 135/83; PULSE 86
[2022-07-25 09:17] VITALS: BP 123/66; PULSE 71
[2022-07-30 09:15] VITALS: BP 135/62; PULSE 69
[2022-08-01 09:00] VITALS: BP 124/68; PULSE 78
[2022-08-06 09:13] VITALS: BP 140/73; PULSE 69
[2022-08-08 09:00] VITALS: BP 131/60; PULSE 63
[2022-08-13 09:08] VITALS: BP 127/63; PULSE 67
[2022-08-15 09:10] VITALS: BP 137/66; PULSE 65
[2022-08-20 09:10] VITALS: BP 138/64; PULSE 78
[2022-08-22 09:12] VITALS: BP 132/67; PULSE 79
== END 2022-08-23 23:59 | disposition home or self-care (01) ==
LOC: CR 09:20
PROVIDERS: PCP Nurse Practitioner Family; Visit Provider Internal Medicine Cardiovascular Disease
DX: R69 Illness, unspecified (principal)

== ENCOUNTER 2022-09-19 09:03 | Outpatient (RCR) | payer SELFPAY ==
[2022-08-24 00:06] VITALS: BP 132/67; PULSE 79
[2022-08-29 09:03] VITALS: BP 135/71; PULSE 71
[2022-09-03 09:30] VITALS: BP 132/65; PULSE 82
[2022-09-05 09:31] VITALS: BP 130/70; PULSE 78
[2022-09-10 09:12] VITALS: BP 144/65; PULSE 62
[2022-09-12 08:59] VITALS: BP 151/64; PULSE 69
[2022-09-17 09:02] VITALS: BP 130/71; PULSE 67
[2022-09-19 09:04] VITALS: BP 133/64; PULSE 54
== END 2022-09-23 23:59 | disposition home or self-care (01) ==
LOC: CR 09:03
PROVIDERS: PCP Nurse Practitioner Family; Visit Provider Internal Medicine Cardiovascular Disease
DX: R69 Illness, unspecified (principal)

== ENCOUNTER 2022-10-24 09:05 | Outpatient (RCR) | payer SELFPAY ==
[2022-09-24 00:03] VITALS: BP 133/64; PULSE 54
[2022-09-24 09:12] VITALS: BP 130/68; PULSE 75
[2022-09-26 09:18] VITALS: BP 119/64; PULSE 87
[2022-10-01 08:58] VITALS: BP 130/63; PULSE 84
[2022-10-03 09:33] VITALS: BP 134/67; PULSE 84
[2022-10-08 09:26] VITALS: BP 134/66; PULSE 82
[2022-10-10 09:07] VITALS: BP 134/71; PULSE 67
[2022-10-15 08:58] VITALS: BP 134/60; PULSE 67
[2022-10-17 09:18] VITALS: BP 127/70; PULSE 60
[2022-10-22 09:05] VITALS: BP 118/67; PULSE 70
[2022-10-24 09:27] VITALS: BP 133/59; PULSE 74
== END 2022-10-24 23:59 | disposition home or self-care (01) ==
LOC: CR 09:05
PROVIDERS: PCP Nurse Practitioner Family; Visit Provider Internal Medicine Cardiovascular Disease
DX: R69 Illness, unspecified (principal)

== ENCOUNTER 2022-11-21 09:06 | Outpatient (RCR) | payer SELFPAY ==
[2022-10-25 00:03] VITALS: BP 133/59; PULSE 74
[2022-10-29 09:03] VITALS: BP 128/68; PULSE 85
[2022-10-31 09:32] VITALS: BP 130/64; PULSE 77
[2022-11-07 10:20] VITALS: BP 129/90; PULSE 73
[2022-11-12 09:06] VITALS: BP 129/62; PULSE 73
[2022-11-14 09:16] VITALS: BP 142/72; PULSE 74
[2022-11-19 09:15] VITALS: BP 131/69; PULSE 76
[2022-11-21 09:16] VITALS: BP 146/66; PULSE 75
[2022-11-28 09:16] VITALS: BP 135/70; PULSE 76
== END 2022-11-23 23:59 | disposition home or self-care (01) ==
LOC: CR 09:06
PROVIDERS: PCP Nurse Practitioner Family; Visit Provider Internal Medicine Cardiovascular Disease
DX: R69 Illness, unspecified (principal)

== ENCOUNTER 2022-12-24 09:05 | Outpatient (RCR) | payer SELFPAY ==
[2022-11-24 00:02] VITALS: BP 146/66; PULSE 75
[2022-11-26 09:01] VITALS: BP 148/56; PULSE 73
[2022-12-03 09:15] VITALS: BP 144/72; PULSE 71
[2022-12-05 09:05] VITALS: BP 140/57; PULSE 78
[2022-12-10 09:05] VITALS: BP 141/72; PULSE 76
[2022-12-17 09:18] VITALS: BP 142/71; PULSE 77
[2022-12-19 09:01] VITALS: BP 133/70; PULSE 84
[2022-12-24 09:00] VITALS: BP 134/72; PULSE 88
[2022-12-26 09:08] VITALS: BP 139/72; PULSE 67
== END 2022-12-24 23:59 | disposition home or self-care (01) ==
LOC: CR 09:05
PROVIDERS: PCP Nurse Practitioner Family; Visit Provider Internal Medicine Cardiovascular Disease
DX: R69 Illness, unspecified (principal)

== ENCOUNTER 2023-01-23 09:15 | Outpatient (RCR) | payer SELFPAY ==
[2022-12-25 00:15] VITALS: BP 146/66; PULSE 75
[2022-12-31 09:00] VITALS: BP 141/76; PULSE 89
[2023-01-02 09:10] VITALS: BP 133/60; PULSE 75
[2023-01-07 09:14] VITALS: BP 128/63; PULSE 83
[2023-01-09 09:27] VITALS: BP 135/67; PULSE 70
[2023-01-14 09:18] VITALS: BP 133/73; PULSE 75
[2023-01-21 09:09] VITALS: BP 135/64; PULSE 73
[2023-01-23 09:03] VITALS: BP 147/64; PULSE 80
== END 2023-01-23 23:59 | disposition home or self-care (01) ==
LOC: CR 09:15
PROVIDERS: PCP Nurse Practitioner Family; Visit Provider Internal Medicine Cardiovascular Disease
DX: R69 Illness, unspecified (principal)

== ENCOUNTER 2023-01-27 08:25 | Outpatient (CLI) | payer MEDICARE, BC, SELFPAY ==
--- NOTE | 2023-01-27 08:15 | RT.EKG_ITS ---
APPROVED REPORT Exam: Resting ECG Reason for Exam: ASCVD Patient Location: O HR:70 bpm ECG Measurements Heart Rate 70 AXIS MS 160 P 45 QRSd 145 QRS 23 QT 407 T 23 QTc 440 Conclusion Sinus rhythm...normal P axis, V-rate 50- 99 Right bundle branch block...QRSd>120, terminal axis(90,270) Probable lateral infarct, old...Q>35mS, abnormal ST-T, V5-6 I aVL Baseline wander in lead(s) V1
== END 2023-01-27 08:26 | disposition home or self-care (01) ==
LOC: DI.CARD 08:26
PROVIDERS: PCP Nurse Practitioner Family; Visit Provider Internal Medicine Cardiovascular Disease
DX: I25.10 Atherosclerotic heart disease of native coronary artery without angina pectoris (principal)
CPT/HCPCS: 93010

== ENCOUNTER → 2023-01-27 10:40 | Outpatient (BNVA) | payer MEDICARE, BC, SELFPAY | PROVIDERS: PCP Nurse Practitioner Family; Visit Provider Internal Medicine Cardiovascular Disease | DX: Z95.5 Presence of coronary angioplasty implant and graft (principal); I25.10 Atherosclerotic heart disease of native coronary artery without angina pectoris | CPT/HCPCS: 93005; 99213 ==

== ENCOUNTER 2023-01-28 02:35 | Outpatient (CLI) | payer MEDICARE, BC, SELFPAY ==
[2023-01-28 13:23] LABS: CREATININE 0.9 mg/dL (0.70-1.30); Calculated LDL 17 mg/dL (<100); Cholesterol 80 mg/dL (<200); Estimated GFR 87.96 (mL/min/1.73m2); HDL Cholesterol 54 mg/dL (40-60); Hemoglobin A1C 5.8 % (<5.7); Potassium 4.1 mmol/L (3.5-5.1); Triglyceride 47 mg/dL (<150)
== END 2023-01-28 02:36 | disposition home or self-care (01) ==
LOC: LOS 02:35
PROVIDERS: PCP Nurse Practitioner Family; Visit Provider Nurse Practitioner Family
DX: I10 Essential (primary) hypertension (principal); E78.5 Hyperlipidemia, unspecified; R73.03 Prediabetes
CPT/HCPCS: 36415; 80061; 82565; 83036; 84132

== ENCOUNTER 2023-02-20 09:59 | Outpatient (RCR) | payer SELFPAY ==
[2023-01-24 00:08] VITALS: BP 146/66; PULSE 75
[2023-01-28 09:00] VITALS: BP 137/70; PULSE 66
[2023-02-06 10:57] VITALS: BP 137/77; PULSE 64
[2023-02-11 09:57] VITALS: BP 143/77; PULSE 83
[2023-02-13 09:06] VITALS: BP 139/67; PULSE 73
[2023-02-18 09:04] VITALS: BP 142/60; PULSE 85
[2023-02-20 09:03] VITALS: BP 136/64; PULSE 74
== END 2023-02-23 23:59 | disposition home or self-care (01) ==
LOC: CR 09:59
PROVIDERS: PCP Nurse Practitioner Family; Visit Provider Internal Medicine Cardiovascular Disease
DX: R69 Illness, unspecified (principal)

== ENCOUNTER 2023-03-20 09:14 | Outpatient (RCR) | payer SELFPAY ==
[2023-02-24 00:17] VITALS: BP 146/66; PULSE 75
[2023-02-25 09:15] VITALS: BP 150/72; PULSE 81
[2023-02-27 09:41] VITALS: BP 138/72; PULSE 85
[2023-03-04 09:47] VITALS: BP 130/75; PULSE 70
[2023-03-06 11:19] VITALS: BP 153/72; PULSE 81
[2023-03-11 08:59] VITALS: BP 148/65; PULSE 85
[2023-03-13 10:03] VITALS: BP 135/62; PULSE 85
[2023-03-18 09:08] VITALS: BP 149/59; PULSE 76
[2023-03-20 09:20] VITALS: BP 141/70; PULSE 89
== END 2023-03-26 23:59 | disposition home or self-care (01) ==
LOC: CR 09:14
PROVIDERS: PCP Nurse Practitioner Family; Visit Provider Internal Medicine Interventional Cardiology
DX: R69 Illness, unspecified (principal)

== ENCOUNTER → 2023-05-29 10:16 | Outpatient (BNVA) | payer MEDICARE, BC, SELFPAY | PROVIDERS: PCP Nurse Practitioner Family; Referring Provider Nurse Practitioner Family; Visit Provider Physical Therapy Assistant | DX: Z12.11 Encounter for screening for malignant neoplasm of colon (principal); Z86.010 Personal history of colon polyps ==

== ENCOUNTER 2023-06-09 08:21 | Day surgery (SDC) | payer MEDICARE, BC, SELFPAY ==
--- NOTE | 2023-06-08 11:09 | PDOC.DSDIS_ITS ---
Date of service: 06/09/23 Time of Service: 10:37 Discharge Plan Disposition Patient Disposition: Home Condition: Good Discharge Details Reason For Visit: screening colonoscopy Attending Provider: Raphael Fulton Primary Care Provider: Vu Carrera Home Meds and New Rx's Prescriptions: Continued aspirin [Aspirin Low-Strength] 81 MG tablet,chewable 81 mg PO DAILY nitroglycerin 0.4 mg tablet, sublingual 0.4 mg Sublingual ONCE PRN (Reason: chest pain) Qty: 100 5RF tamsulosin [Flomax] 0.4 mg capsule 0.4 mg PO DAILY Qty: 90 4RF lisinopril 5 mg tablet 5 mg PO DAILY Qty: 90 3RF atorvastatin 80 mg tablet 80 mg PO DAILY Qty: 90 4RF pseudoephedrine HCl [Sudafed] 30 mg Tablet 30 mg PO ONCE PRN Discontinued bisacodyl [Dulcolax (bisacodyl)] 5 mg tablet,delayed release (DR/EC) 5 mg PO ONCE Qty: 4 0RF Rx Instructions: Take per colonoscopy instructions provided by ordering providers office polyethylene glycol 3350 17 gram/dose powder 17 g PO ONCE Qty: 238 0RF Rx Instructions: Take per colonoscopy instructions provided by ordering providers office Discharge Instructions Additional Instructions: Osbaldo, we were able to complete your colonoscopy today. 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 This is kind of like a varicose vein. There is nothing that needs to be done for it. Otherwise, the screening portion of your colonoscopy was negative, without any signs of tumors or polyps. In light of the type of polyps that you had removed previously, recommend a 5-year interval for your next colonoscopy. If that 1 is also negative, you could give stronger consideration to spacing them out. If you have any questions in the meantime, please do not hesitate to call or ask at any point. 1. If tolerated, consume a soft, low fiber diet for 1-2 days. 2. Do not drive, drink alcohol, operate machinery, make critical decisions, or do activities that require coordination or balance for 24 hours. 3. Because air was put into your colon during the procedure, expelling air from your rectum (passing gas or farting) is normal. 4. You may not have a bowel movement for 1-3 days because of the colonoscopy prep. This is normal. 5. Go directly to the emergency room if you notice any of the following: Develop chills (warm to touch), or if you have a thermometer and your temperature is above 101 Difficulty breathing or difficultly swallowing Persistent vomiting Severe abdominal pain, other than gas cramps Severe chest pain Black, tarry stools Any bleeding ? exceeding one tablespoon 6. Call your physician if the site where your intravenous was started becomes red, swollen, painful, and warm to touch. 7. Your physician has reviewed your pre-procedure medications. Please continue to take those medications as previously ordered. You will be given specific information/education regarding any changes to your medications before leaving. Stand Alone Forms: Anesthesia Discharge InstTrisha Trinh (DSU) Activity:: Activity as Tolerated Diet:: As Tolerated Discharge Orders Discharge Orders: Discharge Order (Routine); Ordered 06/08/23 Ordered By: Raphael Fulton DS: Diagnosis Discharge Diagnosis (1) Encounter for screening colonoscopy: Status: Acute Asessment and Plan: Negative screening colonoscopy today, based on history, recommend 5-year follow- up
--- NOTE | 2023-06-08 11:10 | W.COLOREPORT ---
Date of service: 06/09/23 Time of Service: 10:39 Colonoscopy Report Date of procedure: 06/09/23 Pre-op diagnosis general: screening colonoscopy Post-op diagnosis procedure note: other (Rectal vascular ectasia) Procedure: Colonoscopy Surgeon: Raphael Fulton Anesthesia Type: General:No Airway Estimated blood loss (mL): 0 Pathology: none sent Complications: None Disposition: same day Indications: Osbaldo is a 78 year old man with a history of adenomatous polyps who needs his next screening colonoscopy Prep: Miralax/Dulcolax Procedure Start Time: 10:06 Procedure End Time: 10:23 Retraction Time: 9 Findings: 0.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 Otherwise negative screening colonoscopy Procedure Description: NoAfter the induction of monitored anesthetic care, and with the patient in left lateral decubitus position, I began by performing an external anorectal exam.? Perineum and skin were normal, as was the anal verge.? There is perianal skin tag.? Next, I performed a digital rectal exam.? I did not appreciate any abnormal findings.? Next, I advanced a colonoscope into the rectal vault.? I performed retroflexion.? This appeared normal.? Using insufflation, I then advanced the colonoscope beyond the rectal folds and into the sigmoid colon before advancing towards the cecum.? In the upper portion of the rectal vault was a 0.25 cm vascular ectasia. There were no stigmata of any recent bleeding. The surrounding tissue was totally normal-appearing. The scope was noted to be in the cecum by identification of the ileocecal valve and appendiceal orifice.? I then began withdrawing the colonoscope using repeated irrigation as necessary for full evaluation of the colonic mucosa. ?Once the scope was withdrawn to the level of the rectum, great care was taken to examine portions of the rectal folds.? Finally, the scope was withdrawn and the patient was brought to the same-day surgery recovery unit as the anesthetic wore off. ?The findings and instructions were shared with the patient prior to discharge. [place] Bowel Prep [place] Bowel Prep Right Colon: 3 Left Colon: 3 Transverse Colon: 3 Total Score: 9
[2023-06-09 08:56] VITALS: BP 129/69; PULSE 63; RESP 18; TEMP 36.6; O2SAT 97
[2023-06-09] MEDS: Lactated Ringers 1,000 ML 80 ML IV (09:24)
--- NOTE | 2023-06-09 09:45 | ANES.PREOP_ITS ---
General Info Date of Service Date Performed: 06/09/23 Height: 5 ft 7 in Weight: 97.5 kg Body Mass Index (BMI): 33.6 Surgical Procedure: Operation Date: 06/09/23 09:50 Proposed Procedure Side Surgeon kari Fulton MD Meds Allergies and Home Medications Allergies Allergy/AdvReac Type Severity Reaction Status Date / Time alcohol AdvReac Mild ITCH Verified 06/09/23 08:51 Home Medication Medication Instructions Recorded aspirin 81 mg chewable tablet 81 mg PO DAILY 02/23/13 (Aspirin Low-Strength) pseudoephedrine HCl 30 mg tablet 30 mg PO ONCE PRN 08/02/19 (Sudafed) nitroglycerin 0.4 mg sublingual 0.4 mg sublingual ONCE PRN chest 02/01/21 tablet pain #100 tab-caps tamsulosin 0.4 mg capsule (Flomax) 0.4 mg PO DAILY #90 caps 01/22/23 lisinopril 5 mg tablet 5 mg PO DAILY #90 tabs 02/03/23 atorvastatin 80 mg tablet 80 mg PO DAILY #90 tab-caps 05/15/23 Current Visit Medications: Current Medications Generic Name Dose Route Start Last Admin Trade Name Freq PRN Reason Stop Dose Admin Hyoscyamine Sulfate 0.125 mg 06/08/23 11:11 Hyoscyamine 0.125 Mg Sl/Oral/Chew SL 07/08/23 11:10 DIRECTED PRN Ringer's Solution 1,000 mls @ 80 mls/hr 06/09/23 06:00 06/09/23 09:24 IV 06/09/23 23:59 80 mls/hr INFUSION ASHOK Administration IV Miscellaneous Supplies 1 each 06/09/23 06:00 Iv Access IV 06/09/23 23:59 DIRECTED ASHOK Ondansetron HCl 4 mg 06/08/23 11:11 Ondansetron 4 Mg/2 Ml Vial IVP 07/08/23 11:10 Q4H PRN PRN Nausea / Vomiting Sodium Chloride 0 ml 06/09/23 06:00 Normal Saline Flush 10 Ml Syr IV 06/09/23 23:59 PRN PRN Sodium Chloride 0 ml 06/09/23 06:00 Normal Saline 10 Ml Vial IJ 06/09/23 23:59 DIRECTED PRN Sterile Water 0 ml 06/09/23 06:00 Water,Injection,Sterile 10 Ml Vial IJ 06/09/23 23:59 DIRECTED PRN PFSH Active Problems Active Problems: Problem Status Onset Code Encounter for screening colonoscopy Z12.11 Prediabetes 12/10/16 R73.03 Hyperlipidemia E78.5 Hearing loss H91.90 BPH (benign prostatic hyperplasia) N40.0 Arteriosclerotic heart disease (ASHD) 02/28/15 I25.10 Allergic rhinitis J30.9 Hypertension I10 Neuropathy G62.9 Obesity E66.9 Colon polyp, hyperplastic K63.5 Tubular adenoma D36.9 Medical History Medical History SHELBIE (obstructive sleep apnea) per patient report Tubulovillous adenoma polyp of colon Actinic keratosis Umbilical hernia Prostatic nodule (03/18/17) Family history of colon cancer (03/18/17) Sister at age 59 Disorder of vitamin B12 Acute myocardial infarction (02/07/13) Stent placed circumflex Dr. Babb@ [facility] Acute [place] 2003 Surgical History Surgical History History of coronary artery stent placement [facility] 02/07/13 Coronary Stent 2003 Colonoscopy - MAC (08/02/19) 2017- Tubulovillous and tubal adenomas Appendectomy (~1976) Tobacco Smoking/Tobacco Use Status: Former Tobacco Use Passive smoking exposure: Yes Second hand exposure: Yes Alcohol Alcohol Intake: never Substance Use Substance use: Never Substance use type: does not use Vital Signs and Lab Results Vital Signs Most Recent Vital Signs in EMR: Most Recent Vital Signs Temp Pulse Resp BP Pulse Ox 36.6 C 63 18 129/69 97 06/09/23 08:56 06/09/23 08:56 06/09/23 08:56 06/09/23 08:56 06/09/23 08:56 Lab Results Blood Type / Crossmatch: No Data to Display Complete Blood Count: No Data to Display Complete Metabolic Panel: No Data to Display Liver Function Panel: No Data to Display Coagulation Panel: No Data to Display Cardiac Panel: No Data to Display Arterial Blood Gas: No Data to Display Venous Blood Gas: No Data to Display Pancreas Panel: No Data to Display Thyroid Panel: No Data to Display Infectious Disease: No Data to Display Blood Cultures: No Data to Display Toxicology Panel: No Data to Display Imaging and Studies Imaging and Studies Study information below may be from another EMR and interpreted by another provider. Please see original notes in EMR for more complete details. EKG Summary: 01/27/23: Exam: Resting ECG Reason for Exam: ASCVD Patient Location: O HR:70 bpm ECG Measurements Heart Rate 70 AXIS PA 160 P 45 QRSd 145 QRS 23 QT 407 T23 QTc 440 Conclusion Sinus rhythm...normal P axis, V-rate 50- 99 Right bundle branch block...QRSd>120, terminal axis(90,270) Probable lateral infarct, old...Q>35mS, abnormal ST-T, V5-6 I aVL Baseline wander in lead(s) V1 Anesthesia Assessment and Plan Anesthesia History Personal History: No History of Anesthesia Complications Family History: No Family History of Anesthesia Complications Exercise Tolerance Exercise Tolerance: Metabolic Equivalents>4 Pertinent Negatives Pertinent Negatives: No Symptoms of GERD and No Major Pulmonary Symptoms or Co mplaints Cardiac & Pulmonary Exam Cardiac Exam: Normal S1/S2 Heart Sounds Pulmonary Exam: Clear Bilateral Breath Sounds Implantable Cardiac Device Does patient have a Pacemaker or an ICD?: No Airway Exam Known Difficult Airway: No Mallampati Class: 2 Mouth Opening: Normal (> 3cm) Thyromental Distance: Greater than 3 cm Neck Range of Motion: Full ROM Neck Circumference: Thick Teeth Condition: Normal Dentition ASA Classification ASA Score: ASA 3 Emergency Case?: No NPO Status NPO Status: NPO Clears >2 hours, Solids >8 hours Anesthesia Plan Resuscitation Status: Full Code Anesthesia Technique: General Anesthesia Airway Planned: Natural Airway Monitors Used: Standard Monitors
[2023-06-09 09:46] VITALS: BMI 33.6
[2023-06-09 10:31] VITALS: BP 122/66; PULSE 61; RESP 18; TEMP 36.6; O2SAT 95
[2023-06-09 10:59] VITALS: BP 121/69; PULSE 61; RESP 18; TEMP 36.7; O2SAT 96
--- NOTE | 2023-06-09 11:17 | ANES.POST_ITS ---
Postoperative Evaluation Date, Time and Location Date Performed: 06/09/23 Time Performed: 11:17 Patient Location: Day Surgery Unit Vital Signs Most Recent Imported Vital Signs: Most Recent Vital Signs Temp Pulse Resp BP Pulse Ox 36.7 C 61 18 121/69 96 06/09/23 10:59 06/09/23 10:59 06/09/23 10:59 06/09/23 10:59 06/09/23 10:59 Pain Score Most Recent Pain Score: Most Recent Pain Score Pain Level 0 06/09/23 10:59 Assessment Mental Status: Awake (Alert & Oriented to Patient Baseline) Airway and Respiratory Function: Patent airway with normal (patient baseline) respiratory exam Cardiovascular Function: Hemodynamically Stable Hydration Status: Adequately Hydrated Nausea & Vomiting: No Nausea or Vomiting Pain: Pt. Denies Any Pain Peripheral Nerve Block: Patient did not receive a nerve block Teaching Patient Teaching: Advised to seek followup for the following concerns (See ex planation) Concerns: Other (Sleep study)
== END 2023-06-09 08:22 | disposition home or self-care (01) ==
LOC: SUR 08:21
PROVIDERS: PCP Nurse Practitioner Family; Visit Provider Surgery
PROC: 0DJD8ZZ Inspection of Lower Intestinal Tract, Via Natural or Artificial Opening Endoscopic (ICD-10-PCS; CPT 45378; principal; 2023-06-09 09:45)
DX: Z12.11 Encounter for screening for malignant neoplasm of colon (principal); K55.9 Vascular disorder of intestine, unspecified; I10 Essential (primary) hypertension; Z86.010 Personal history of colon polyps
CPT/HCPCS: G0105; J2001; J2704

== ENCOUNTER 2023-06-24 09:03 | Outpatient (RCR) | payer SELFPAY ==
[2023-05-27 10:13] VITALS: BP 127/57; PULSE 67
[2023-05-29 08:56] VITALS: BP 125/62; PULSE 86
[2023-06-03 09:16] VITALS: BP 128/63; PULSE 72
[2023-06-05 09:03] VITALS: BP 137/60; PULSE 73
[2023-06-10 09:11] VITALS: BP 141/67; PULSE 84
[2023-06-12 09:03] VITALS: BP 144/61; PULSE 73
[2023-06-17 09:05] VITALS: BP 138/59; PULSE 66
[2023-06-19 09:15] VITALS: BP 136/59; PULSE 82
[2023-06-24 09:02] VITALS: BP 136/71; PULSE 75
== END 2023-06-24 23:59 | disposition home or self-care (01) ==
LOC: CR 09:03
PROVIDERS: PCP Nurse Practitioner Family; Visit Provider Internal Medicine Cardiovascular Disease
DX: R69 Illness, unspecified (principal)

== ENCOUNTER 2023-07-24 09:19 | Outpatient (RCR) | payer SELFPAY ==
[2023-06-25 00:28] VITALS: BP 136/71; PULSE 75
[2023-06-26 09:13] VITALS: BP 139/60; PULSE 75; O2SAT 94
[2023-07-01 09:13] VITALS: BP 132/63; PULSE 82
[2023-07-03 10:40] VITALS: BP 125/69; PULSE 70
[2023-07-08 09:16] VITALS: BP 131/66; PULSE 74
[2023-07-10 09:00] VITALS: BP 122/58; PULSE 77
[2023-07-15 09:07] VITALS: BP 135/76; PULSE 67
[2023-07-17 10:07] VITALS: BP 137/66; PULSE 77
[2023-07-22 09:13] VITALS: BP 127/64; PULSE 60
[2023-07-24 09:16] VITALS: BP 135/67; PULSE 66
== END 2023-07-25 23:59 | disposition home or self-care (01) ==
LOC: CR 09:19
PROVIDERS: PCP Nurse Practitioner Family; Visit Provider Internal Medicine Cardiovascular Disease
DX: R69 Illness, unspecified (principal)

== ENCOUNTER 2023-08-21 09:06 | Outpatient (RCR) | payer SELFPAY ==
[2023-07-26 00:11] VITALS: BP 136/71; PULSE 75
[2023-08-05 09:12] VITALS: BP 138/76; PULSE 76
[2023-08-07 12:22] VITALS: BP 125/66; PULSE 67
[2023-08-12 09:15] VITALS: BP 135/67; PULSE 82
[2023-08-14 09:25] VITALS: BP 122/61; PULSE 71
[2023-08-21 09:11] VITALS: BP 145/69; PULSE 75
== END 2023-08-24 23:59 | disposition home or self-care (01) ==
LOC: CR 09:06
PROVIDERS: PCP Nurse Practitioner Family; Visit Provider Internal Medicine Cardiovascular Disease
DX: R69 Illness, unspecified (principal)

== ENCOUNTER 2023-09-18 09:00 | Outpatient (RCR) | payer SELFPAY ==
[2023-08-25 00:04] VITALS: BP 136/71; PULSE 75
[2023-08-26 10:05] VITALS: BP 129/69; PULSE 78
[2023-09-02 09:03] VITALS: BP 129/65; PULSE 67; O2SAT 95
[2023-09-09 09:22] VITALS: BP 123/60; PULSE 75
[2023-09-11 12:56] VITALS: BP 138/69; PULSE 74
[2023-09-16 09:04] VITALS: BP 141/70; PULSE 60
[2023-09-18 09:00] VITALS: BP 135/59; PULSE 73
== END 2023-09-24 23:59 | disposition home or self-care (01) ==
LOC: CR 09:00
PROVIDERS: PCP Nurse Practitioner Family; Visit Provider Internal Medicine Cardiovascular Disease
DX: R69 Illness, unspecified (principal)

== ENCOUNTER 2023-10-21 09:05 | Outpatient (RCR) | payer SELFPAY ==
[2023-09-25 00:06] VITALS: BP 136/71; PULSE 75
[2023-09-25 09:02] VITALS: BP 124/66; PULSE 68
[2023-09-30 09:16] VITALS: BP 136/67; PULSE 67
[2023-10-02 10:19] VITALS: BP 135/71; PULSE 77
[2023-10-07 09:17] VITALS: BP 137/71; PULSE 72
[2023-10-09 09:06] VITALS: BP 130/70; PULSE 81
[2023-10-14 10:10] VITALS: BP 130/66; PULSE 76
[2023-10-16 09:04] VITALS: BP 132/60; PULSE 76
[2023-10-21 09:12] VITALS: BP 144/56; PULSE 72
== END 2023-10-25 23:59 | disposition home or self-care (01) ==
LOC: CR 09:05
PROVIDERS: PCP Nurse Practitioner Family; Visit Provider Internal Medicine Cardiovascular Disease
DX: R69 Illness, unspecified (principal)

== ENCOUNTER 2023-11-20 09:05 | Outpatient (RCR) | payer SELFPAY ==
[2023-10-26 00:21] VITALS: BP 136/71; PULSE 75
[2023-10-30 09:09] VITALS: BP 141/65; PULSE 80; O2SAT 93
[2023-11-04 09:10] VITALS: BP 146/73; PULSE 80
[2023-11-06 09:19] VITALS: BP 130/72; PULSE 93
[2023-11-11 09:15] VITALS: BP 132/69; PULSE 84
[2023-11-13 09:20] VITALS: BP 135/69; PULSE 77
[2023-11-18 10:22] VITALS: BP 132/67; PULSE 82
[2023-11-20 09:28] VITALS: BP 135/66; PULSE 90
== END 2023-11-24 23:59 | disposition home or self-care (01) ==
LOC: CR 09:05
PROVIDERS: PCP Nurse Practitioner Family; Visit Provider Internal Medicine Cardiovascular Disease
DX: R69 Illness, unspecified (principal)

== ENCOUNTER 2023-12-25 09:01 | Outpatient (RCR) | payer SELFPAY ==
[2023-11-27 09:09] VITALS: BP 144/78; PULSE 67; O2SAT 96
[2023-12-02 09:04] VITALS: BP 119/65; PULSE 76
[2023-12-04 09:28] VITALS: BP 132/63; PULSE 60
[2023-12-09 09:23] VITALS: BP 141/58; PULSE 74
[2023-12-11 08:59] VITALS: BP 127/64; PULSE 79; O2SAT 95
[2023-12-18 08:59] VITALS: BP 140/59; PULSE 69
[2023-12-23 09:13] VITALS: BP 127/71; PULSE 69
[2023-12-25 09:11] VITALS: BP 130/56; PULSE 70
== END 2023-12-25 23:59 | disposition home or self-care (01) ==
LOC: CR 09:01
PROVIDERS: PCP Nurse Practitioner Family; Visit Provider Internal Medicine Cardiovascular Disease
DX: R69 Illness, unspecified (principal)

== ENCOUNTER 2024-01-20 09:11 | Outpatient (RCR) | payer SELFPAY ==
[2023-12-26 00:14] VITALS: BP 130/56; PULSE 70
[2023-12-30 09:06] VITALS: BP 150/59; PULSE 83
[2024-01-01 09:19] VITALS: BP 139/68; PULSE 84
[2024-01-06 09:00] VITALS: BP 140/62; PULSE 84
[2024-01-08 09:10] VITALS: BP 133/66; PULSE 72
[2024-01-13 09:32] VITALS: BP 121/66; PULSE 93
[2024-01-15 09:08] VITALS: BP 132/61; PULSE 82; O2SAT 93
[2024-01-20 09:18] VITALS: BP 123/69; PULSE 68
== END 2024-01-24 23:59 | disposition home or self-care (01) ==
LOC: CR 09:11
PROVIDERS: PCP Nurse Practitioner Family; Visit Provider Internal Medicine Cardiovascular Disease
DX: R69 Illness, unspecified (principal)

== ENCOUNTER → 2024-01-26 10:30 | Outpatient (BNVA) | payer MEDICARE, BC, SELFPAY | PROVIDERS: PCP Nurse Practitioner Family; Referring Provider Nurse Practitioner Family; Visit Provider Registered Nurse | DX: R60.0 Localized edema (principal); I25.10 Atherosclerotic heart disease of native coronary artery without angina pectoris | CPT/HCPCS: 99214 ==

== ENCOUNTER 2024-01-29 10:47 | Outpatient (CLI) | payer MEDICARE, BC, SELFPAY ==
[2024-01-29 10:36] LABS: Anion Gap 8.3 mmol/L (3-11); BUN 27 mg/dL (7-18); CO2 29.7 mmol/L (21.0-32.0); CREATININE 1.4 mg/dL (0.70-1.30); Calcium 10.1 mg/dL (8.5-10.1); Chloride 106 mmol/L (98-107); Estimated GFR 51.45 (mL/min/1.73m2); Glucose 119 mg/dL (74-106); Potassium 3.7 mmol/L (3.5-5.1); Sodium 144 mmol/L (136-145)
[2024-01-29 20:09] LABS: Hepatitis C Ab w Rflx HCV PCR Negative (Negative)
== END 2024-01-29 10:48 | disposition home or self-care (01) ==
LOC: LBO 10:48
PROVIDERS: Registered Nurse; PCP Nurse Practitioner Family; Visit Provider Nurse Practitioner Family
DX: Z11.59 Encounter for screening for other viral diseases (principal); R60.9 Edema, unspecified
CPT/HCPCS: 36415; 80048; 86803

== ENCOUNTER 2024-02-24 09:21 | Outpatient (RCR) | payer SELFPAY ==
[2024-01-25 00:06] VITALS: BP 130/56; PULSE 70
[2024-01-27 09:12] VITALS: BP 127/71; PULSE 88
[2024-01-29 09:09] VITALS: BP 122/71; PULSE 100
[2024-02-03 09:28] VITALS: BP 128/66; PULSE 94
--- OUTSIDE RECORDS SUMMARY | 2024-02-05 09:29 | XMS_ITS | Encounter Summary ---
Author Organization [facility] Address [facility] [place] [address] Care Team Providers Care Land Leases And Rentals Manager Name Role Phone Trell Cade MD Primary Care Provider [phone] Encounter Details Date Type Department Care Team (Late st Contact Info) Description 10/17/2015 Orders Only Cardiology at [address] [phone] Chaz Babb MD [facility] [place] [address] Coronary artery disease due to lipid rich plaque Social History Tobacco Use Types Packs/Day Years Used Date Smoking Tobacco: Former Cigarettes 2 40 0 03/23/1953 - 03/23/1993 Smokeless Tobacco: Never Alcohol Use Standard Drinks/Week Comments No 0 (1 standard drink = 0.6 oz pur e alcohol) Sex and Gender Information Value Date Recorded Sex Assigned at Not on file Gender Identity Not on file Sexual Orientation Not on file documented as of this encounter Plan of Treatment Not on file documented as of this encounter Visit Diagnoses Diagnosis Coronary artery disease due to lipid rich plaque documented in this encounter Care Teams Land Leases And Rentals Manager Relationship Specialty Start Date End Date Trell Cade MD [address] [place] [address] PCP - General 02/07/13 08/23/19 documented as of this encounter
--- OUTSIDE RECORDS SUMMARY | 2024-02-05 09:29 | XMS_ITS | Encounter Summary ---
Author Organization [facility] Address [address] [place] [address] Care Team Providers Care Home Aide Name Role Phone Unavailable Primary Care Provider Unavailabl e Encounter Details Date Type Department Care Team (Late st Contact Info) Description 09/03/2005 Office Visit [facility] [address] [place] [address] Jovon Conte, PACharli [address] [place], [place] [id number] Social History Tobacco Use Types Packs/Day Years Used Date Smoking Tobacco: Never Assessed Sex and Gender Information Value Date Recorded Sex Assigned at Not on file Legal Sex Male 18:38 EST Gender Identity Not on file Sexual Orientation Not on file documented as of this encounter Progress Notes * Jovon Conte MD - 04/19/2009 2153 EST Department - Physician Summary Registration Date/Time: 09/03/2005 21:01 Time Seen; upon arrival. Arrived- By private vehicle. Historian - patient. HISTORY OF PRESENT ILLNESS Chief Complaint- INJURY TO HEAD. Location of injuries- head. The accident occurred today. Fell 8-10 feet while standing and landed on a hard surface; lost balance. Occurred at work. The patient denies pain. The patient sustained a blow to the head and had loss of consciousness. Noneck pain or seizure. Not dazed. REVIEW OF SYSTEMS The patient sustained skin laceration. No numbness, hearing loss, nausea, chest pain or depression.No weakness, loss of vision, vomiting, difficulty breathing or bladder dysfunction. PAST HISTORY Negative. Tetanus immunization status is up-to-date. Medications: None. Allergies: No known drug allergies. ADDITIONAL NOTES The nursing notes have been reviewed. PHYSICAL EXAM Appearance: Alert. No acute distress. Vital Signs: Have been reviewed - Head: Occiput: mild tenderness and swelling and laceration of the middle occiput (stapled already).No erythema, abrasion, ecchymosis or deformity. Eyes: Pupils equal, round and reactive to light. EOM intact. ENT: No dental injury. Pharynx normal. Neck: Painless ROM. Neck non-tender. CVS: Heart sounds normal. Pulses normal. Respiratory: Breath sounds normal. Chest nontender. LABS, X-RAYS, AND EKG CT Head: No acute disease. PROGRESS AND PROCEDURES E.D. Course: 00:40. Pt seen by neurosurg, repeat CT was NEG. Pt will be d/c'd . Consult obtained from neurosurgery. Case discussed. Will see patient in the ED. Consultation performed in ED. Consult note reviewed. Agree with treatment plan. Patient disposition per banking consultant. ED Attending on duty and available for supervision: Michelle Briggs. Disposition: Discharged home in good condition. Discharged home in good condition. CLINICAL IMPRESSION Concussion without loss of consciousness . Laceration. INSTRUCTIONS Patient given specimen cup in case of further nasal discharge. Warnings: HEAD INJURY PRECAUTIONS: An observer must check on the patient frequently for the next 24hours to confirm that the patient responds as expected, is not confused, has no new weakness or numbness, and has no other problems. OTC Medications: Motrin (available over the counter): take according to label instructions. Follow-up: Follow up with your doctor in two days even if well. Next available appointment. (Electronically signed by Jovon Conte, 09/05/2005 0:50) Addenda for OSBALDO COFFEY VisitID: [id number] Date: 09/03/2005 09/03/2005 19:02 PT XFR FROM [facility]. CAME TO THEIR E.D. AROUND 1500 (OCCURRED AROUND 1330) UNLOADING P'UP TRUCK, FELL INTO DUMPSTER. HIT HEAD. NO LOC BUT ALTERED MENTAL STATUS. +LAC TO OCCIPITAL WITH ?CSF LEAK. CT OK BUT THE SLICES WERE LARGE. NEEDSCT WITH SMALL SLICES TO R/O FX. HAS ESQUEDA, PUPILS CURTIS 150/80 AOx3 NOTE TAKEN BY NITO LI, RN signed by Krish Ojeda - 09/03/2005 19:02) Department - Nursing Summary Registration Date/Time: 09/03/2005 21:01 TRIAGE Initial Assessment Triage time 21:01 . Acuity: LEVEL 3. BP: 155 / 85. HR: 83. RR: 16. Temp: 37.6 tympanic. Alert. No acute distress. --2105 Ben Lamb R.N. Medications None. --2105 Ben Lamb R.N. Allergies No known drug allergies. --2105 Ben Lamb R.N. History Chief Complaint: FALL. Location of injuries- head. This occurred today. Mechanism of injury: fell and landed on a hard surface. ( struck his head in dumpster). Pain level now: 0/10. ( Addenda for OSBALDO HARRISON MRN: VisitID: Date: 09/03/2005 09/03/2005 19:02 PT XFR FROM [facility] IN [facility]. CAME TO THEIR E.D. AROUND 1500 (OCCURRED AROUND 1330) UNLOADING P'UP TRUCK, FELL INTO DUMPSTER. HIT HEAD. NO LOC BUT ALTERED MENTAL STATUS. +LAC TO OCCIPITAL WITH ?CSF LEAK. CT OK BUT THE SLICES WERE LARGE. NEEDS CT WITH SMALL SLICES TO R/O FX. HAS ESQUEDA, PUPILS FUCK982/80 AOx3 NOTE TAKEN BY NITO LI, RN ). The patient had brief loss of consciousness. 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 ( repaired lac to head with reginaldo). PAST HX: Hernia. No infectious disease exposure. Tetanus status: up-to-date. SOCIAL HX: Previous smoker. Quit smoking yearsago. No alcohol use. Functional assessment: no impairments noted. No report of abuse. Arrived by private vehicle and accompanied by family. Historian: patient. --2105 Ben Lamb R.N. PHYSICAL ASSESSMENT Alert. Appears in no acute distress. Oriented X 3. Occiput (repaired laceration with reginaldo). Skinis warm. --2106 Ben Lamb R.N. NURSING PROGRESS NOTES Progress Patient transported to CT by stretcher with tech. --2313 Dai Amaya R.N. Patient returned from CT by stretcher with tech. --2320 Dai Amaya R.N. Neurosurg resident in with pt. --203 Dai Amaya R.N. DISPOSITION / DISCHARGE Condition at departure: stable. Fall risk assessment completed. No fall risk identified. No learning barriers present. Discharge instructions reviewed with the patient and family. Patient and family verbalized understanding. Written instructions provided in Portuguese. The patient was discharged home and accompanied by family. The patient left the Emergency Department ambulatory and via private vehicle. Family member driving. --0047 Mariel Snider R.N., R.N. Locked/Released at 09/04/2005 0:47 by Dai Amaya R.N. documented in this encounter Plan of Treatment Not on file documented as of this encounter Visit Diagnoses Not on filedocumented in this encounter
--- OUTSIDE RECORDS SUMMARY | 2024-02-05 09:29 | XMS_ITS | Encounter Summary ---
Author Organization [facility] Address [facility] [place] [address] Care Team Providers Care Ota Name Role Phone Trell Cade MD Primary Care Provider [phone] Reason for Visit * Reason Comments Coronary Artery Disease Encounter Details Date Type Department Care Team (Late st Contact Info) Description 06/14/2014 12:40 PM EDT Follow-Up Cardiology at [address] [phone] Chaz Babb MD [facility] [place] [address] Coronary artery disease due to lipid rich plaque; Hyperlipidemia Discharge Disposition: Home Social History Tobacco Use Types Packs/Day Years [...] on file documented as of this encounter Last Filed Vital Signs Vital Sign Reading Time Taken Comments Blood Pressure 100/60 06/14/2014 12:40 PM EDT Pulse 70 06/14/2014 12:40 PM EDT Temperature - - Respiratory Rate - - Oxygen Saturation 95% 06/14/2014 12:40 PM EDT Inhaled Oxygen Concentration - - Weight 97.5 kg (215 lb) 06/14/2014 12:40 PM EDT Height 172.7 cm (5' 8) 06/14/2014 12:40 PM EDT Body Mass Index 32.69 06/14/2014 12:40 PM EDT documented in this encounter Progress Notes * Chaz Babb MD - 06/12/2014 4:19 PM EDT Subjective: Patient ID: Osbaldo Peters is a 69 y.o. male. HPI: Mr. 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 Since I last saw him, he denies any chest pain, dyspnea, orthopnea, pnd, palpitations, syncope or presyncopalsymptoms. He is tolerating his medications well. He continues to go to cardiac rehab twice per week. He feels well doing this and has had no change in his functional status. He is excited to get outside and start doing yard work. Review of Systems Cardiovascular: Negative for chest pain, claudication, dyspnea on exertion, leg swelling, near-syncope, orthopnea, palpitations, paroxysmal nocturnal dyspnea and syncope. Hematologic/Lymphatic: Does not bruise/bleed easily. All other systems reviewed and are negative. Current Outpatient Rx Name Route Sig Dispense Refill ??? aspirin 81 mg EC tablet Oral Take 1 tablet by mouth daily. 30 tablet 11 ??? atorvastatin (LIPITOR) 80 mg tablet Oral Take 1 tablet by mouth nightly. 30 tablet 11 ??? nitroGLYcerin (NITROSTAT) 0.4 mg SL tablet Sublingual Place 1 tablet under the tongue every 5 minutes as needed for Chest pain. 90 tablet 3 ??? Mometasone (NASONEX) 50 mcg/Actuation Ovid Nasal ??? cetirizine-psuedoephedrine (ZYRTEC-D) 5-120 mg per tablet Oral Patient taking differently: prn Objective: BP 100/60 Pulse 70 Ht 172.7 cm (5' 8) Wt 97.523 kg (215 lb) BMI 32.70 kg/m2 SpO2 95% Physical Exam Constitutional: He is oriented to person, place, and time. He appears well- developed and well-nourished. HENT: Head: Normocephalic and atraumatic. Eyes: Conjunctivae are normal. Pupils are equal, round, and reactive to light. Neck: No JVD present. No thyromegaly present. Cardiovascular: Normal rate, regular rhythm, S1 normal and S2 normal. Exam reveals no gallop, no S3, no S4 and no friction rub. No murmur heard. Pulses: Carotid pulses are 2+ on the right side, and 2+ on the left side. Radial pulses are 2+ on the right side, and 2+ on the left side. Popliteal pulses are 2+ on the right side, and 2+ on the left side. Pulmonary/Chest: Effort normal and breath sounds normal. Abdominal: Soft. Normal appearance and bowel sounds are normal. Neurological: He is alert and oriented to person, place, and time. Skin: Skin is warm and dry. Vitals reviewed. Assessment and Plan: 1. 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 Continue current meds and risk factor modification. 2. Hyperlipidemia: Continue high dose statin therapy. documented in this encounter Plan of Treatment Not on file documented as of this encounter Visit Diagnoses Diagnosis Coronary artery disease due to lipid rich plaque Hyperlipidemia Other and unspecified hyperlipidemia documented in this encounter Care Teams Ota Relationship Specialty Start Date End Date Trell Cade MD [address] [place] [address] PCP - General 02/07/13 08/23/19 documented as of this encounter
--- OUTSIDE RECORDS SUMMARY | 2024-02-05 09:29 | XMS_ITS | Encounter Summary ---
Author Organization [facility] Address [address] [place] [address] Care Team Providers Care Sample Display Preparer Name Role Phone Unavailable Primary Care Provider Unavailabl e Encounter Details Date Type Department Care Team (Late st Contact Info) Description 09/03/2005 21:01 EDT - 09/04/2005 11:59 EDT Hospital Encounter [facility] Emergency Department - [address] [phone] Jovon Hazel MD [address] [place] [phone] Discharge Disposition: Home or Self Care Social History Tobacco Use Types Packs/Day Years Used Date Smoking Tobacco: Never Assessed Sex and Gender Information Value Date Recorded Sex Assigned at Not on file Legal Sex Male 18:38 EST Gender Identity Not on file Sexual Orientation Not on file documented as of this encounter Discharge Disposition Disposition Code Departure Means Destination Home or Self Care documented in this encounter Plan of Treatment Not on file documented as of this encounter Procedures Procedure Name Priority Date/Time Associated Diagnosis Comments CT HEAD WO CONTRAST 09/03/2005 2 3:30 EDT documented in this encounter Results * CT HEAD WO CONTRAST (09/03/2005 23:30 EDT) Anatomical Region Laterality Modality Other 09/03/2005 23:3 0 EDT Narrative 09/10/2008 14:02 EDT fall blow to head occlput with lac + possible csf prom nose - ct @ [facility] more sensitive ct r/o skull fx HEAD CT WITHOUT CONTRAST: ??09/03/05 HISTORY: ??Fell with occipital laceration. ??Possible CSF rhinaria. TECHNIQUE: Transverse non-contrast CT scans of the brain were performed from the foramen magnum to the vertex. FINDINGS: ??There is soft tissue swelling and a small right suboccipital laceration noted on the right side. ??No underlying calvarial fracture is seen. ??No intracranial hemorrhage, mass effect or midline shift is present. ??Ventricles and extra-axial CSF spaces are normal for age. There is mucosal thickening and a small fluid level formation in the left maxillary sinus. ??No displaced fracture is identified. CONCLUSION: 1. ? Negative for acute intracranial hemorrhage or midline shift. 2. ? Left maxillary sinusitis. 3. ? Right occipital soft tissue laceration without associated skull fracture. D: ? 09/04/05 T: ? 09/08/05amn Procedure Note Jerry Alvarez MD - 09/10/2008 fall blow to head occlput with lac + [facility] prom [facility] r/o skull fx HEAD CT WITHOUT CONTRAST: 09/03/05 HISTORY: Fell with occipital laceration. Possible CSF rhinaria. TECHNIQUE: Transverse non-contrast CT scans of the brain were performed from the foramen magnum to the vertex. FINDINGS: There is soft tissue swelling and a small right suboccipital laceration noted on the right side. No underlying calvarial fracture is seen. No intracranial hemorrhage, mass effect or midline shift is present. Ventricles and extra-axial CSF spaces are normal for age. There is mucosal thickening and a small fluid level formation in the left maxillary sinus. No displaced fracture is identified. CONCLUSION: 1. Negative for acute intracranial hemorrhage or midline shift. 2. Left maxillary sinusitis. 3. Right occipital soft tissue laceration without associated skull fracture. amn us Jovon Conte PA-C IMG CT ORDERABLES Final Resul t documented in this encounter Visit Diagnoses Not on filedocumented in this encounter
--- OUTSIDE RECORDS SUMMARY | 2024-02-05 09:29 | XMS_ITS | Encounter Summary ---
Author Organization Health system Address [address] [place] [address] Care Team Providers Care Dope Worker Name Role Phone Vlad Livingston MD Primary Care Provider Encounter Details Date Type Department Care Team (Late st Contact Info) Description 01/25/2022 Lab Requisition [facility] Pathology & Laboratory Medicine - [address] [address] Outr Resulting Lab, Provider Social History Tobacco Use Types Packs/Day Years Used Date Smoking Tobacco: Never Assessed Interpersonal Safety Answer Date Record ed Physically Hurt Never 09/26/2019 Verbally Threaten Not on file 09/26/2019 Sex and Gender Information Value Date Recorded Sex Assigned at Not on file Legal Sex Male 18:38 EST Gender Identity Not on file Sexual Orientation Not on file documented as of this encounter Plan of Treatment Not on file documented as of this encounter Procedures Procedure Name Priority Date/Time Associated Diagnosis Comments PSA TOTAL, DIAGNOSTIC Routine 01/25/2022 11:08 EST documented in this encounter Results * PSA TOTAL, DIAGNOSTIC (01/25/2022 11:08 EST) PSA 2.0 <=6.5 ng/mL 01/28/2022 8:39 EST [facility] Blood VENOUS BLOOD / Unknown 01/25/2022 11:08 EST 01/25/2022 22:01 EST Narrative [facility] - 01/28/2022 8:39 EST NOTE: Serum PSA concentration should not be interpreted as absolute evidence for the presence or absence of malignant disease. Assayed on Siemens ADVIA Centaur XPT using chemiluminescent technology.??Values obtained by using different assay methods cannot be used interchangeably. us Provider Outr Resulting Lab CHEMISTRY & BLOOD GA S ORDERABLES Final Result [facility] [address] [place] [address] documented in this encounter Visit Diagnoses Not on filedocumented in this encounter Care Teams Dope Worker Relationship Specialty Start Date End Date Vlad Livingston MD PCP - General 08/02/19 documented as of this encounter
--- OUTSIDE RECORDS SUMMARY | 2024-02-05 09:29 | XMS_ITS | Encounter Summary ---
Author Organization [facility] Address [address] [place] [address] Care Team Providers Care Vocational School Teacher Name Role Phone Vlad Livingston MD Primary Care Provider Encounter Details Date Type Department Care Team (Late st Contact Info) Description 01/29/2024 Lab Requisition [facility] Pathology & Laboratory Medicine - [address] [address] Outr Resulting Lab, Provider Social History Tobacco [...] Procedure Name Priority Date/Time Associated Diagnosis Comments HEPATITIS C AB W REFLEX TO HCV RNA BY PCR Routine 01/29/2024 10:21 EST documented in this encounter Results * HEPATITIS C AB W REFLEX TO HCV RNA BY PCR (01/29/2024 10:21 EST) Hep C Antibody Negative Negative 01/29/2024 20:04 EST [facility] Blood VENOUS BLOOD / Unknown 01/29/2024 10:21 EST 01/29/2024 17:04 EST us Provider Outr Resulting Lab CHEMISTRY & BLOOD GA S ORDERABLES Final Result [facility] [address] [place] [address] documented in this encounter Visit Diagnoses Not on filedocumented in this encounter Care Teams Vocational School Teacher Relationship Specialty Start Date End Date Vlad Livingston MD PCP - General 08/02/19 documented as of this encounter
--- OUTSIDE RECORDS SUMMARY | 2024-02-05 09:29 | XMS_ITS | Encounter Summary ---
Author Organization [facility] Address [address] [place] [address] Care Team Providers Care Kindergarten Paraprofessional Name Role Phone Juani Gómez MD Primary Care Provider Unavailab le Encounter Details Date Type Department Care Team (Late st Contact Info) Description 01/22/2017 Results Only [facility] [phone] Gurdeep Rae, DO [address] [facility] [address] [place] [address] Social History Tobacco Use Types Packs/Day Years [...] Procedure Name Priority Date/Time Associated Diagnosis Comments SURGICAL PATHOLOGY Routine 01/22/2017 9:23 EST documented in this encounter Results * SURGICAL PATHOLOGY (01/22/2017 9:23 EST) Pathology Report: SURGICAL PATHOLOGY REPORT Reports generated via electronic interface contain original data; however they are lacking the format of the original report. Caution should be taken when reading/interpret ing unformatted reports. Name: ? OSBALDO COFFEY ? Accession #: ? [id number] ? : ? 1945 (Age: 72) ??M ? Collect Date: ? 01/22/2017 ? Location: ? [facility] ? Receive Date: ? 01/23/2017 ? Provider: GURDEEP RAE DO Copy to: JUANI OWUSU MD ? Final Pathologic Diagnosis: A. COLON, TRANSVERSE POLYP, BIOPSY: - ??Tubular adenoma. B. COLON, SPLENIC FLEXURE POLYP, BIOPSY: - ??Fragments of tubulovillous adenoma. C. COLON, SIGMOID POLYP, BIOPSY: - ??Tubular adenoma. Document reviewed and electronically signed by: BALJINDER HAYS MD Report ??Date: 01/23/2017 17:01 By the signature above, the attending physician certifies that he/she has personally conducted a gross and/or microscopic examination of the described specimens and rendered or confirmed the above diagnosis. Specimen(s) Received: A. ??Transverse colon polyp B. ??Splenic flexure polyps x2 C. ??Sigmoid polyp Clinical History: Screening for colon cancer Gross Description: A. ?Received in formalin labelled with proper patient identification (initials C, W) and transverse colon polyp are two light brown tissues (0.6 x 0.3 x 0.2 cm and 0.3 x 0.2 x 0.1 cm). Entirely submitted in A1. B. ?Received in formalin labelled with proper patient identification (initials C, W) and splenic flexure polyps are five light lilly tissues (0.5 x 0.4 x 0.2 cm to 0.3 x 0.1 x 0.1 cm). Entirely submitted in B1 and B2. C. ?Received in formalin labelled with proper patient identification (initials C, W) and sigmoid polyp is a single light lilly tissue fragment (0.2 x 0.2 x 0.1 cm). Submitted intact in C1. Yolanda Zavala 01/23/2017 9:52 AM End of Report [facility] 01/22/2017 9:23 EST 01/23/2017 9:23 EST us Gurdeep Rae DO PATHOLOGY ORDERABLES Fi nal Result [facility] [address] [place] [address] documented in this encounter Visit Diagnoses Not on filedocumented in this encounter Care Teams Kindergarten Paraprofessional Relationship Specialty Start Date End Date Juani Gómez MD PCP - General 09/25/16 01/27/17 documented as of this encounter
--- OUTSIDE RECORDS SUMMARY | 2024-02-05 09:29 | XMS_ITS | Encounter Summary ---
Author Organization [facility] Address [address] [place] [address] Care Team Providers Care Installer Name Role Phone Vlad Livingston MD Primary Care Provider Encounter Details Date Type Department Care Team (Late st Contact Info) Description 08/02/2019 Lab Requisition [facility] Pathology & Laboratory Medicine - [address] [address] Lynne Abarca MD [address] [place] [id number] Encounter for other general examination Social History Tobacco Use Types Packs/Day Years [...] Priority Date/Time Associated Diagnosis Comments SURGICAL PATHOLOGY Today 08/02/2019 8: 50 EDT Encounter for other general examination documented in this encounter Results * SURGICAL PATHOLOGY (08/02/2019 8:50 EDT) Final Diagnosis A. COLON, TRANSVERSE, POLYPS, BIOPSY: - Tubular adenomas. B. COLON, ASCENDING, POLYPS, BIOPSY: - Tubular adenomas. C. COLON, DESCENDING, POLYPS, BIOPSY: - Hyperplastic polyps. D. RECTUM, POLYP, BIOPSY: - Hyperplastic polyp. 08/03/2019 11:26 EDT [facility] at [address]6 Attestation There was significant resident/fellow involvement in the diagnostic evaluation of this case. By the signature below, the attending physician certifies that they have personally conducted a gross and/or microscopic examination of the described specimens and rendered or confirmed the above diagnosis. 08/03/2019 11:26 [facility] at 1126 Clinical History History of colon polyps, family history of colon cancer 08/03/2019 11:26 [facility] Gross Description A. Received in formalin labelled with proper patient identification (initials C, W) and transverse colon polyp x4 are 7 lilly irregular tissues ranging from 0.1 x 0.1 x 0.1 cm to 0.2 x 0.2 x 0.1 cm. Entirely submitted in A1-A2. B. Received in formalin labelled with proper patient identification (initials C, W) and ascending colon polyps x2 are four lilly irregular to nodular tissues averaging 0.2 x 0.2 x 0.2 cm. Entirely submitted in B1. C. Received in formalin labelled with proper patient identification (initials C, W) and descending colon polyps x3 are three lilly-brown nodular tissues ranging from 0.2 x 0.1 x 0.1 cm to 0.2 x 0.2 x 0.1 cm. Entirely submitted in C1. D. Received in formalin labelled with proper patient identification (initials C, W) and rectal polyp is a lilly-brown tissue, 0.2 x 0.2 x 0.1 cm. Entirely submitted in D1. Kathy Cooley 08/02/2019 17:42 08/03/2019 11:26 T [facility] Resident/Kristopher w: Anders Curtis MD 08/03/2019 11:26 [facility] Scanned Images 08/03/2019 11:26 [facility] Tissue SPECIMEN FROM RECTUM / Unknown 08/02/2019 8:50 EDT 08/02/2019 16:34 EDT Tissue specimen (specimen) ASCENDING COLON STRUCTURE / Unknown 08/02/2019 8:50 EDT 08/02/2019 16:34 EDT Tissue specimen (specimen) DESCENDING COLON STRUCTURE / Unknown 08/02/2019 8:50 EDT 08/02/2019 16:34 EDT Tissue specimen (specimen) SPECIMEN FROM RECTUM / Unknown 08/02/2019 8:50 EDT 08/02/2019 16:34 EDT us Lynne Abarca MD PATHOLOGY ORDERABLES Fin al Result [facility] [address] [place] [address] documented in this encounter Visit Diagnoses Diagnosis Encounter for other general examination documented in this encounter Care Teams Installer Relationship Specialty Start Date End Date Vlad Livingston MD PCP - General 08/02/19 documented as of this encounter
--- OUTSIDE RECORDS SUMMARY | 2024-02-05 09:29 | XMS_ITS | Encounter Summary ---
Author Organization [facility] [place] [address] Care Team Providers Care Book Or Script Editor Name Role Phone Vlad Livingston MD Primary Care Provider [phone] Reason for Visit * Reason Comments Skin Check * Consultation (Routine) - Specialty Diagnoses / Procedures Referred By Hector toth Referred To Contact Dermatology Diagnoses Rash and other nonspecific skin eruption Rash and Other Skin Eruptions; New Patient-Notes Received Procedures Cooper Cuevas MD [address] [facility] [address] [place] [address] Burton Diaz MD [address] [place] [address], [facility] [place] [address] Referral ID Status Reason Start Date Expiration Date V isits Requested Visits Authorized [id number] Consult, Test & Treat PCP Updated and/or Approved 08/11/2019 02/10/2020 6 6 Encounter Details Date Type Department Care Team (Late st Contact Info) Description 08/24/2019 4:00 PM EDT Office Visit Dermatology at [address] [address] uBrton Diaz MD [address] [place] [address], [facility] [place], [place] [id number] Lichen aureus Social History Tobacco Use Types Packs/Day Years [...] as of this encounter Progress Notes * Burton Diaz MD - 08/24/2019 4:00 PM EDT Problem: Lower extremity dermatitis Osbaldo is a 74-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 It seemed to start around his ankles but then has been spreading more superiorly. He states that he is not diabetic but has an A1c that recently was checkedand found to be borderline. He is trying to work on losing weight and is trying to get more exercise. 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 He has been mostly staying at home and puttering around the house weed whacking and doing various yard projects. He denies a standing in one place for any length of time. The patient is seen in consultation today for Dr. Livingston. Physical examination reveals montoya hued macules coalescing into small patches on the medial calveswith active areas of small petechiae present as well, and most prominently on the bilateral medial ankles below the lateral malleoli he has some pooling there of red blood cells with red distinctly red patches present. He has trace edema of both lower extremities Assessment plan: Lichen aureus 1. Discussed the circulatory component to this. Patient is on baby aspirin a day. Continue this 2. Patient recently had did have a stent placed but is not experiencing any functional symptoms of cardiac insufficiency. He is having no chest pain has not had to take nitroglycerin for some time. 3. Recommend that the patient start wearing Tubigrip support stockings during the day, exercise both to lose weight to help his A1c but also to improve his circulation and reduce the lichen aureus 4. Reassuring that he has no tinea pedis and may slowly discontinue the terbinafine cream 5. Currently for any mild itching that he experiences associated with this simply using his 's emollient lotion works for him. Continue this as needed. CC: Vlad Livingston MD documented in this encounter Plan of Treatment Not on file documented as of this encounter Visit Diagnoses Diagnosis Lichen aureus Other lichen, not elsewhere classified documented in this encounter Care Teams Book Or Script Editor Relationship Specialty Start Date End Date Vlad Livingston MD PCP - General General Internal Medicine 08/24/19 9/3 documented as of this encounter
--- OUTSIDE RECORDS SUMMARY | 2024-02-05 09:29 | XMS_ITS | Referral Summary ---
Author Organization [facility] Address [address] [place] [address] Care Team Providers Care Chaser Helper Name Role Phone Vlad Livingston MD Primary Care Provider [phone] Encounters Date Type Department Care Team Description 01/29/2024 Lab Requisition [facility] Pathology & Laboratory Medicine - [facility] [address] [place] [address] Outr Resulting Lab, Provider from Last 3 Months Social History Tobacco Use Types Packs/Day Years Used Date Smoking Tobacco: Never Assessed Interpersonal Safety Answer Date Record ed Physically Hurt Never 09/26/2019 Verbally Threaten Not on file 09/26/2019 Sex and Gender Information Value Date Recorded Sex Assigned at Not on file Legal Sex Male 18:38 EST Gender Identity Not on file Sexual Orientation Not on file Plan of Treatment Not on file Procedures Procedure Name Priority Date/Time Associated Diagnosis Comments HEPATITIS C AB W REFLEX TO HCV RNA BY PCR Routine 01/29/2024 10:21 EST from Last 3 Months Results * HEPATITIS C AB W REFLEX TO HCV RNA BY PCR (01/29/2024 10:21 EST) Hep C Antibody Negative Negative 01/29/2024 20:04 EST [facility] Blood VENOUS BLOOD / Unknown 01/29/2024 10:21 EST 01/29/2024 17:04 EST us Provider Outr Resulting Lab CHEMISTRY & BLOOD GA S ORDERABLES Final Result [facility] [address] [place], [place] [id number] from Last 3 Months [facility] [place] Care Teams Chaser Helper Relationship Specialty Start Date End Date Vlad Livingston MD PCP - General 08/02/19
--- OUTSIDE RECORDS SUMMARY | 2024-02-05 09:29 | XMS_ITS | Clinical Summary ---
Author Organization [facility] Address [facility] [place] [address] Care Team Providers Care Ventilation Mechanic Name Role Phone Unknown Primary Care Provider Unavailabl e Allergies Active Allergy Reactions Criticality Noted Date Comments Alcohol Pruritis Medications Medication Sig Dispensed Refills Start Date End Date Status cetirizine-psuedoephe drine (ZYRTEC-D) 5-120 mg per tablet 12/11/2005 Activ e aspirin 81 mg EC tablet Take 1 tablet by mouth daily. 30 tablet 11 02/09/2013 Active atorvastatin (LIPITOR) 80 mg tablet Take 1 tablet by mouth nightly. 30 tablet 11 02/09/2013 Active nitroGLYcerin (NITROSTAT) 0.4 mg Tablet, SublingualIndications :Coronary artery disease due to lipid rich plaque Place 1 tablet under the tongue every 5 minutes as needed for Chest pain. 25 tablet 02/06/2016 Active tamsulosin (Flomax) 0.4 mg Capsule 08/05/2019 Active Active Problems Problem Noted Date Diagnosed Date Hyperlipidemia 03/19/2013 CAD (coronary artery disease) 02/09/2013 Overview (03/19/2013): A. Cath 02/11/13: LM-nl, LAD-mild diffuse, LCX-ostial 65%-->thrombectomy, PCI with 3x32mm Promus Element , RCA-mild diffuse. B. ECHO 01/2013: EF=65%. Immunizations Name Administration Dates Next Due Pneumococcal 23-Valent Polysaccharide (Pneumovax 23) 02/24/1999 Td Adult (not absorbed) 05/04/2004 Social History Tobacco Use Types Packs/Day Years Used Date Smoking Tobacco: Former Cigarettes 2 40 0 03/23/1953 - 03/23/1993 Smokeless Tobacco: Never Alcohol Use Standard Drinks/Week Comments No 0 (1 standard drink = 0.6 oz pur e alcohol) Sex and Gender Information Value Date Recorded Sex Assigned at Not on file Gender Identity Not on file Sexual Orientation Not on file Last Filed Vital Signs Vital Sign Reading Time Taken Comments Blood Pressure 146/61 06/24/2017 11:10 AM EDT Pulse 64 06/24/2017 11:10 AM EDT Temperature 37 ??C (98.6 ??F) 02/09/2013 7:23 AM EST Respiratory Rate 18 02/09/2013 7:23 AM EST Oxygen Saturation 96% 06/24/2017 11:10 AM EDT Inhaled Oxygen Concentration - - Weight 99.6 kg (219 lb 8 oz) 06/24/2017 11:10 AM EDT Height 172.7 cm (5' 8) 06/24/2017 11:10 AM EDT Body Mass Index 33.37 06/24/2017 11:10 AM EDT Plan of Treatment Health Maintenance Due Date Last Done Comments Hepatitis C Screening 01/15/1963 Zoster vaccine (1 of 2) 01/15/1996 Advance Directive 2001 Tetanus/Diphtheria/Pertussis Vaccines (1 - Tdap) 05/0505/04/2004 Pneumoccocal Vaccine: 65+ (2 of 2 - PCV) 2011 02/24/1999 RSV Vaccine (1 - 1-dose 75+ series) 2021 Covid-19 Vaccine (1 - 2023-25 season) 2023 Influenza (Flu) vaccine (1 o f 1 - Influenza standard series) 10/26/2023 Advance Directives * Full Code (Latest Code Status on File) Date Activated Date Inactivated Comments 02/07/2013 4:17 PM 02/09/2013 4:11 PM Question Answer Comments Order Status: Initial Order Does patient have decision m aking capacity? Yes, Order is based on Patients wishes. Care Teams Ventilation Mechanic Relationship Specialty Start Date End Date Unknown None PCP - General 11/24/20
--- OUTSIDE RECORDS SUMMARY | 2024-02-05 09:29 | XMS_ITS | Encounter Summary ---
Author Organization [facility] Address [facility] [place] [address] Care Team Providers Care Hearing Examiner Name Role Phone Trell Cade MD Primary Care Provider [phone] Reason for Visit * Reason Comments Coronary Artery Disease Encounter Details Date Type Department Care Team (Latest Contact Info) Description 06/24/2017 11:20 AM EDT Office Visit Cardiology at [address] [address] Chaz Babb MD [facility] [place] [address] Hyperlipidemia, unspecified hyperlipidemia type (Primary Dx); Coronary artery disease due to lipid rich [...] Pulse 64 06/24/2017 11:10 AM EDT Temperature - - Respiratory Rate - - Oxygen Saturation 96% 06/24/2017 11:10 AM EDT Inhaled Oxygen Concentration - - Weight 99.6 kg (219 lb 8 oz) 06/24/2017 11:10 AM EDT Height 172.7 cm (5' 8) 06/24/2017 11:10 AM EDT Body Mass Index 33.37 06/24/2017 11:10 AM EDT documented in this encounter Progress Notes * Chaz Babb MD - 06/24/2017 11:20 AM EDT Subjective: Patient ID: Osbaldo Peters is a 72 y.o. male. HPI: Mr. 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 Since I last saw him, he denies any chest pain, dyspnea, orthopnea, pnd, palpitations, syncope or presyncopalsymptoms. He is tolerating his medications well. He continues to go to cardiac rehab twice per week. He continues to do well with this and has had no change in his functional status. Review of Systems Cardiovascular: Negative for chest pain, claudication, dyspnea on exertion, leg swelling, near-syncope, orthopnea, palpitations, paroxysmal nocturnal dyspnea and syncope. Hematologic/Lymphatic: Does not bruise/bleed easily. All other systems reviewed and are negative. MEDS: ??? nitroGLYcerin (NITROSTAT) 0.4 mg Tablet, Sublingual ??? aspirin 81 mg EC tablet ??? atorvastatin (LIPITOR) 80 mg tablet ??? cetirizine-psuedoephedrine (ZYRTEC-D) 5-120 mg per tablet Objective: BP 146/61 Pulse 64 Ht 172.7 cm (5' 8) Wt 99.6 kg (219 lb 8 oz) SpO2 96% BMI 33.37 kg/m2 Physical Exam Constitutional: He is oriented to [...] Skin is warm and dry. Vitals reviewed. 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 No other obstructive disease on original cath in 2012. Stable without symptoms. Continue current meds and risk factor modification. 2. Hyperlipidemia: Continue high dose statin therapy. 3. Elevated BP: Will continue to check ambulatory values and with cardiac rehab at the hospital. Recommend considering starting ACEi if SBP consistently >130mmHg. documented in this encounter Plan of Treatment Not on file documented as of this encounter Procedures Procedure Name Priority Date/Time Associated Diagnosis Comments EKG 12-LEAD Routine 06/24/2017 11:29 AM EDT Coronary artery disease due to lipid rich plaque Hyperlipidemia, unspecified hyperlipidemia type documented in this encounter Results * EKG 12 Lead (06/24/2017 11:29 AM EDT) Ventricular rate 75 BPM MUSE SYSTEM Atrial Rate 75 BPM MUSE SYSTEM P-R Interval 156 ms MUSE SYSTEM QRS Duration 136 ms MUSE SYSTEM Q-T Interval 420 ms MUSE SYSTEM QTC Calculated (Bezet) 469 ms MUSE SYSTEM Calculated P [place] 59 degrees MUSE SYSTEM Calculated R [place] -48 degrees MUSE SYSTEM Calculated T [place] 64 degrees MUSE SYSTEM INTERPRETATION Normal sinus rhythm Right bundle branch block Left anterior fascicular block Bifascicular block Abnormal ECG When compared with ECG of 06-FEB-2016 09:41, Left anterior fascicular block is now Present Nonspecific T wave abnormality no longer evident in Inferior leads Confirmed by MD Babb Timothy ([id number]) on 06/24/2017 1:13:44 PM MUSE SYSTEM 06/24/2017 11:2 9 AM EDT 06/24/2017 1:13 PM EDT Chaz Babb MD ECG ORDERABLES MUSE SYSTEM documented in this encounter Visit Diagnoses Diagnosis Hyperlipidemia, unspecified hyperlipidemia type- Primary Coronary artery disease due to lipid rich plaque documented in this encounter Care Teams Hearing Examiner Relationship Specialty Start Date End Date Trell Cade MD [address] [place] [address] PCP - General 02/07/13 08/23/19 documented as of this encounter
--- OUTSIDE RECORDS SUMMARY | 2024-02-05 09:29 | XMS_ITS | Encounter Summary ---
Author Organization [facility] Address [facility] [place] [address] Care Team Providers Care Electro Optical Engineer Name Role Phone Trell Cade MD Primary Care Provider [phone] Reason for Visit * Reason Comments Coronary Artery Disease Encounter Details Date Type Department Care Team (Late st Contact Info) Description 03/23/2013 9:20 AM EST Office Visit Cardiology at [address] [address] Chaz Babb MD [facility] [place] [address] CAD (coronary artery disease); Hyperlipidemia Discharge Disposition: Home Social History Tobacco [...] Sign Reading Time Taken Comments Blood Pressure 130/72 03/23/2013 9:21 AM EST Pulse 48 03/23/2013 9:21 AM EST regul ar Temperature - - Respiratory Rate - - Oxygen Saturation 97% 03/23/2013 9:21 AM EST RA Inhaled Oxygen Concentration - - Weight 98.4 kg (217 lb) 03/23/2013 9:21 AM EST w ith shoes Height 172.7 cm (5' 8) 03/23/2013 9:21 AM EST Body Mass Index 32.99 03/23/2013 9:21 AM EST documented in this encounter Progress Notes * Chaz Babb MD - 03/19/2013 10:56 AM EST Subjective: Patient ID: Osbaldo Peters is a 68 y.o. male. HPI: Mr. Peters presents for follow up of his inferior STEMI s/p HUMBLE to LCX. Since discharge, he denies any chest pain, dyspnea, orthopnea, pnd, palpitations, syncope or presyncopal symptoms. He is tolerating his medications well. He has been attending cardiac rehab and is enjoying it. He denies any symptoms similar to those that brought him last month. He has twinges of pain in his neck, feet etc but nothing suggestive of angina. Review of Systems Cardiovascular: Negative for chest pain, claudication, dyspnea on exertion, leg swelling, near-syncope, orthopnea, palpitations, paroxysmal nocturnal dyspnia and syncope. Hematologic/Lymphatic: Does not bruise/bleed easily. All other systems reviewed and are negative. Objective:BP 130/72 Pulse 48 Ht 172.7 cm (5' 8) Wt 98.431 kg (217 lb) BMI 32.99 kg/m2 SpO2 97% Physical Exam Vitals reviewed. Constitutional: He is oriented to person, place, and time. He appears well- developed and well-nourished. HENT: Head: Normocephalic and atraumatic. Eyes: Conjunctivae normal are normal. Pupils are equal, round, and [...] time. Skin: Skin is warm and dry. Assessment and Plan: 1. CAD s/p inferior STEMI with HUMBLE to OM: LV function preserved. Stable. Continue current meds and risk factor modification. 2. Hyperlipidemia: Tolerating Lipitor well. Continue high dose statin therapy. documented in this encounter Plan of Treatment Not on file documented as of this encounter Visit Diagnoses Diagnosis CAD (coronary artery disease) Coronary atherosclerosis of unspecified type of vessel, kaibab or graft Hyperlipidemia Other and unspecified hyperlipidemia documented in this encounter Care Teams Electro Optical Engineer Relationship Specialty Start Date End Date Trell Cade MD [address] [place] [address] PCP - General 02/07/13 08/23/19 documented as of this encounter
--- OUTSIDE RECORDS SUMMARY | 2024-02-05 09:29 | XMS_ITS | Encounter Summary ---
Author Organization [facility] Address [address] [place] [address] Care Team Providers Care Poultry Processor Name Role Phone Trell Gómez MD Primary Care Provider Unavailab le Encounter Details Date Type Department Care Team (Latest Contact Info) Description 01/22/2017 12:27 EST - 01/22/2017 23:59 EST Hospital Encounter [address] [address] Unknown, Provider, Discharge Disposition: Home or Self Care Social History Tobacco Use Types Packs/Day Years Used Date Smoking Tobacco: Never Assessed Sex and Gender Information Value Date Recorded Sex Assigned at Not on file Legal Sex Male 18:38 EST Gender Identity Not on file Sexual Orientation Not on file documented as of this encounter Discharge Disposition Disposition Code Departure Means Destination Home or Self [facility] documented in this encounter Plan of Treatment Not on file documented as of this encounter Visit Diagnoses Not on filedocumented in this encounter Care Teams Poultry Processor Relationship Specialty Start Date End Date Trell Gómez MD PCP - General 09/25/16 01/27/17 documented as of this encounter
--- OUTSIDE RECORDS SUMMARY | 2024-02-05 09:29 | XMS_ITS | Clinical Summary ---
Author Organization [facility] Address [address] [place] [address] Care Team Providers Care Otc Clerk Name Role Phone Vlad Livingston MD Primary Care Provider Encounters Date Type Department Care Team Description 01/29/2024 Lab Requisition [facility] Pathology & Laboratory Medicine - [facility] [address] [place] [address] Outr Resulting Lab, Provider from Last 3 [...] Orientation Not on file Plan of Treatment Health Maintenance Due Date Last Done Comments Fall Risk Screening 2011 RSV Immunization ( o r 60+ Years) (1 - 1-dose 75+ series) 2021 COVID-19 Vaccine ( season) 2023 Hepatitis C Screen Completed 01/29/2024 Procedures Procedure Name Priority Date/Time Associated Diagnosis Comments HEPATITIS C AB W REFLEX TO HCV RNA BY PCR Routine 01/29/2024 10:21 EST from Last 3 Months Results * HEPATITIS C AB W REFLEX TO HCV RNA BY PCR (01/29/2024 10:21 EST) Hep C Antibody Negative Negative 01/29/2024 20:04 EST [facility] Blood VENOUS BLOOD / Unknown 01/29/2024 10:21 EST 01/29/2024 17:04 EST us Provider Outr Resulting Lab CHEMISTRY & BLOOD GA S ORDERABLES Final Result [facility] [address] [place], [place] [phone] from Last 3 Months Insurance [facility] [employer] [place] Care Teams Otc Clerk Relationship Specialty Start Date End Date Vlad Livingston MD PCP - General 08/02/19
--- OUTSIDE RECORDS SUMMARY | 2024-02-05 09:29 | XMS_ITS | Encounter Summary ---
Author Organization [facility] Address [facility] [place] [address] Care Team Providers Care Managed Care Specialist Name Role Phone Trell Cade MD Primary Care Provider [phone] Reason for Visit * Reason Comments Coronary Artery Disease Encounter Details Date Type Department Care Team (Latest Contact Info) Description 02/06/2016 9:40 AM EST Office Visit Cardiology at [address] [phone] Chaz Babb MD [facility] [place] [address] Coronary artery disease due to lipid rich plaque; Hyperlipidemia, unspecified hyperlipidemia type Social History Tobacco Use Types Packs/Day Years [...] Sign Reading Time Taken Comments Blood Pressure 118/68 02/06/2016 9:37 AM EST Pulse 57 02/06/2016 9:37 AM EST Temperature - - Respiratory Rate - - Oxygen Saturation 96% 02/06/2016 9:37 AM EST Inhaled Oxygen Concentration - - Weight 95.3 kg (210 lb) 02/06/2016 9:37 AM EST Height 172.7 cm (5' 8) 02/06/2016 9:37 AM EST Body Mass Index 31.93 02/06/2016 9:37 AM EST documented in this encounter Progress Notes * Garfield, Chaz A, MD - 02/06/2016 9:40 AM EST Subjective: Patient ID: Osbaldo Peters is a 71 y.o. male. HPI: Mr. Peters presents for [...] had no change in his functional status. Yesterday he ran the [employer] all day between work and home and painted an entire room. No perceived limitations. Review of Systems Cardiovascular: Negative for chest pain, claudication, dyspnea on exertion, leg swelling, near-syncope, orthopnea, palpitations, paroxysmal nocturnal dyspnea and syncope. Hematologic/Lymphatic: Does not bruise/bleed easily. All other systems reviewed and are negative. MEDS: ??? aspirin 81 mg EC tablet ??? atorvastatin (LIPITOR) 80 mg tablet ??? nitroGLYcerin (NITROSTAT) 0.4 mg SL tablet ??? cetirizine-psuedoephedrine (ZYRTEC-D) 5-120 mg per tablet Objective: BP 118/68 Pulse 57 Ht 172.7 cm (5' 8) Wt 95.3 kg (210 lb) SpO2 96% BMI 31.93 kg/m2 Physical Exam Constitutional: He is oriented [...] Skin is warm and dry. Vitals reviewed. LABS [facility] 02/05/16: LDL=42 CR=889 HDL=54 Trig=90 EKG: Sinus alcie with RBBB Assessment and Plan: 1. 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 No other obstructive disease on original cath in 2012. Stable without symptoms. Continue current meds and risk factor modification. 2. Hyperlipidemia: LDL=42 as above. Continue high dose statin therapy. documented in this encounter Plan of Treatment Not on file documented as of this encounter Procedures Procedure Name Priority Date/Time Associated Diagnosis Comments EKG 12-LEAD Routine 02/06/2016 9:41 AM EST Coronary artery disease due to lipid rich plaque Hyperlipidemia, unspecified hyperlipidemia type documented in this encounter Results * EKG 12 Lead (02/06/2016 9:41 AM EST) Ventricular rate 53 BPM MUSE SYSTEM Atrial Rate 53 BPM MUSE SYSTEM P-R Interval 162 ms MUSE SYSTEM QRS Duration 146 ms MUSE SYSTEM Q-T Interval 468 ms MUSE SYSTEM QTC Calculated (Bezet) 439 ms MUSE SYSTEM Calculated P [place] 60 degrees MUSE SYSTEM Calculated R [place] 5 degrees MUSE SYSTEM Calculated T [place] 34 degrees MUSE SYSTEM INTERPRETATION Sinus bradycardia Right bundle branch block Nonspecific T wave abnormality Inferior leads Abnormal ECG When compared with ECG of 08-FEB-2013 07:25, QRS axis Shifted right Nonspecific T wave abnormality has replaced inverted T waves in Inferior leads I personally reviewed the tracing and edited the fellows interpretation Confirmed by fellow MD Jordan Kristy ([id number]) on 02/06/2016 11:00:01 AM Confirmed by MD Wynn Gregory A. ([id number]) on 02/06/2016 1:43:40 PM MUSE SYSTEM 02/06/2016 9:41 AM EST 02/06/2016 1:43 PM EST Chaz Babb MD ECG ORDERABLES [place] [facility] documented in this encounter Visit Diagnoses Diagnosis Coronary artery disease due to lipid rich plaque Hyperlipidemia, unspecified hyperlipidemia type documented in this encounter Care Teams Managed Care Specialist Relationship Specialty Start Date End Date Trell Cade MD [address] [place] [address] PCP - General 02/07/13 08/23/19 documented as of this encounter
--- OUTSIDE RECORDS SUMMARY | 2024-02-05 09:29 | XMS_ITS | Encounter Summary ---
Author Organization [facility] Address [facility] [place] [address] Care Team Providers Care Voting Machine Mechanic Name Role Phone Trell Cade MD Primary Care Provider [phone] Reason for Visit * Reason Comments Coronary Artery Disease Encounter Details Date Type Department Care Team (Late st Contact Info) Description 06/22/2013 11:20 AM EDT Follow-Up Cardiology at [address] [phone] Chaz Babb MD [facility] [place] [address] CAD (coronary artery disease); Hyperlipidemia Discharge Disposition: [...] Sign Reading Time Taken Comments Blood Pressure 120/62 06/22/2013 11:17 AM EDT Pulse 49 06/22/2013 11:17 AM EDT Temperature - - Respiratory Rate - - Oxygen Saturation 98% 06/22/2013 11:17 AM EDT Inhaled Oxygen Concentration - - Weight 93 kg (205 lb) 06/22/2013 11:17 AM EDT Height 172.7 cm (5' 8) 06/22/2013 11:17 AM EDT Body Mass Index 31.17 06/22/2013 11:17 AM EDT documented in this encounter Progress Notes * Chaz Babb MD - 06/18/2013 10:36 AM EDT Subjective: Patient ID: Osbaldo Peters is a 68 y.o. male. HPI: Mr. Peters presents for follow up of his inferior STEMI s/p HUMBLE to LCX. Since discharge, he denies any chest pain, dyspnea, orthopnea, pnd, palpitations, syncope or presyncopal symptoms. He is tolerating his medications well. He reports occasionally feeling a vibration on the left side of his chest. This has no relationship to exertion and does not stop him from doing things. He does not getit when doing heavy work. Review of Systems Cardiovascular: Negative for chest pain, claudication, dyspnea on exertion, leg swelling, near-syncope, orthopnea, palpitations, paroxysmal nocturnal dyspnia and syncope. Hematologic/Lymphatic: Does not bruise/bleed easily. All other systems reviewed and are negative. Objective: BP 120/62 Pulse 49 Ht 172.7 cm (5' 8) Wt 92.987 kg (205 lb) BMI 31.18 kg/m2 SpO2 98% Physical Exam Vitals reviewed. Constitutional: He is [...] Hyperlipidemia: Continue high dose statin therapy. 3. BP: We controlled on Toprol XL 50mg. documented in this encounter Plan of Treatment Not on file documented as of this encounter Visit Diagnoses Diagnosis CAD (coronary artery disease) Coronary atherosclerosis of unspecified type of vessel, [place] or graft Hyperlipidemia Other and unspecified hyperlipidemia documented in this encounter Care Teams Voting Machine Mechanic Relationship Specialty Start Date End Date Trell Cade MD [address] [place] [address] PCP - General 02/07/13 08/23/19 documented as of this encounter
--- OUTSIDE RECORDS SUMMARY | 2024-02-05 09:29 | XMS_ITS | Encounter Summary ---
Author Organization [place] [address] Care Team Providers Care Fire Pilot Name Role Phone Trell Cade MD Primary Care Provider [phone] Reason for Visit * Reason Onset Date Comments Other 05/04/2013 Encounter Details Date Type Department Care Team (Late st Contact Info) Description 05/04/2013 Telephone Cardiology at [address] [phone] Risa Ruth, RN Other Social History Tobacco Use Types Packs/Day Years [...] on file documented as of this encounter Miscellaneous Notes * Telephone Encounter - Risa Ruth RN - 05/04/2013 2:34 PM EDT Received call from Ryann at Dr. [facility]ja [facility] office asking if ok for pt to have cleaning since he had a stwtn placed in January. Informed Ryann that patient can have his dental cleanings 6 weeks out from his stent placement. Ryann will inform Dr. alarcon. documented in this encounter Plan of Treatment Not on file documented as of this encounter Visit Diagnoses Not on filedocumented in this encounter Care Teams Fire Pilot Relationship Specialty Start Date End Date Trell Cade MD [address] [place] [address] PCP - General 02/07/13 08/23/19 documented as of this encounter
--- OUTSIDE RECORDS SUMMARY | 2024-02-05 09:30 | XMS_ITS | Encounter Summary ---
Author Organization Formerly [facility] Address [facility] [place] [address] Care Team Providers Care Label Machine Operator Name Role Phone Trell Cade MD Primary Care Provider [phone] Reason for Referral * (Routine) - Closed by system - Referral Specialty Diagnoses / Procedures Referred By Contac t Referred To Contact Cardiac Rehabilitation Diagnoses 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 Chaz Babb MD [facility] [place] [address] Referral ID Status Reason Start Date Expiration Date Visits Requested Visits Authorized [id number] Closed by system - Referral Evaluate and Treat 3 08/08/2013 1 1 Encounter Details Date Type Department Care Team (Latest Contact Info) Description 02/07/2013 3:52 PM EST - 02/09/2013 2:11 PM EST Hospital Encounter Intermediate [place] [address] Andres Pryor MD [facility] [place] [address] Chaz Babb MD [facility] [place] [address]; 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 Discharge Disposition: Home Social History Tobacco Use Types Packs/Day Years Used Date Smoking Tobacco: Former Alcohol Use Standard Drinks/Week Comments No 0 (1 standard drink = 0.6 oz pur e alcohol) Sex and Gender Information Value Date Recorded Sex Assigned at Not on file Gender Identity Not on file Sexual Orientation Not on file documented as of this encounter Last Filed Vital Signs Vital Sign Reading Time Taken Comments Blood Pressure 129/72 02/09/2013 7:23 AM EST Pulse 58 02/09/2013 7:23 AM EST Temperature 37 ??C (98.6 ??F) 02/09/2013 7:23 AM EST Respiratory Rate 18 02/09/2013 7:23 AM EST Oxygen Saturation 95% 02/09/2013 7:23 AM EST Inhaled Oxygen Concentration - - Weight 99.5 kg (219 lb 5.7 oz) 02/09/2013 7:23 A M EST Height 172.7 cm (5' 8) 02/07/2013 7:00 PM EST Body Mass Index 33.35 02/07/2013 7:00 PM EST documented in this encounter Discharge Instructions * Patient Instructions* Bobby Carvalho - 02/09/2013 11:13 AM EST Instruction after leaving the hospital Why you were hospitalized: heart attack Call your doctor or seek medical attention if you develop the following: chest pain, shortness of breath, swelling, fevers, chills, or any other new or concerning symptoms Activity level: you can gradually return to normal activities as tolerated, avoiding over-exertion early on; as discussed, we recommend a cardiac rehabilitation program Diet: recommend a diet low in saturated fat and rich in fresh fruits and vegatables Your Inpatient Doctor(s) at [facility]: (most recent inpatient cardiology team) Dr. Babb, Dr. Jackson, Dr. Carvalho, Dr. Galan Call your doctor if: Chest pain, shortness of breath, pain or swelling in legs occurs. If you have non-emergent questions between now and the time of your follow up appointments: During 8am-5pm Friday through Friday call [phone] to speak with a nurse in the cardiology clinic All other times call [phone] and ask to speak to the rn oncology second crusher. Return to work: One week Driving: No driving for 48 hours after 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. Follow up Appointments: PCP: We have scheduled you to be seen by Dr. 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 Babb at [facility] on 03/23/2013 at9:20 AM Specific instructions related to your condition: You were hospitalized for a heart attack. This was because of blockage in the arteries that supply blood to your heart. You underwent cardiac 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, which is a way of visualizing the coronary arteries, identifying blockages, and treating them if possible. In your case, a blockage was identified and a stent was placed into in order to open the vessel back up. In order to prevent future heart attacks or heart failure, which can result from heart attacks, there are some important things for you to do: 1) Medications: Because of your stent you need to take a medication called plavix, or clopidogrel, every day to make sure the stent stays open. You need to take this until your specialist employee labor relations tells you to stop taking it. Typically this is for a year, unless you have problems with the medication (such as major bleeding), in which case it still must be at least 3 months. This is of utmost importance. In addition to this, we have prescribed you several additional medications that will help your heart to heal as well as possible and lower your risk of future heart attacks. These include atorvastatin, aspirin, and metoprolol. Aspirin and plavix increase your risk of bleeding, so you should be extra careful while t aking these medications and seek care immediately if you have any signs of bleeding, notice black tarry stool, or have a head injury. We have also prescribed an acid reducing medicine called protonix, or pantoprazole, to reduce the risk of stomach ulcers and bleeding from your gastrointestinal tract. If there are any problems with your medications, the copayments, or you have any questions, please contact a doctor immediately. You can contact is using the contact information below, or you can also contact your primary care doctor or specialist employee labor relations office. 2) Life style modifications: Eating a nutritious diet that includes lots of fruits and vegetables and low amounts of saturated fat (as found in dairy and meat products), and maintaining a healthy amount of physical activity are important, as well as avoiding smoking. We recommend cardiac rehab as described above. 3) Medical follow-up Close follow-up with your primary care and specialist employee labor relations are of utmost importance as well. * Attachments The following attachments cannot be sent through Care Everywhere. * HEART ATTACK: AFTER YOUR VISIT (UGANDAN) * REDUCING HEART ATTACK RISK WITH DAILY MEDICINE: AFTER YOUR VISIT (UGANDAN) * PERCUTANEOUS CORONARY INTERVENTION: WHAT TO EXPECT AT HOME (UGANDAN) documented in this encounter Medications at Time of Discharge Medication Sig Dispensed Refills Start Date End Date aspirin 81 mg EC tablet Take 1 tablet by mouth daily. 30 tablet 11 02/09/2013 atorvastatin (LIPITOR) 80 mg tablet Take 1 tablet by mouth nightly. 30 tablet 11 02/09/2013 cetirizine-psuedoephedr ine (ZYRTEC-D) 5-120 mg per tablet 12/11/2005 nitroGLYcerin (NITROSTAT) 0.[address] 1 tablet under the tongue every 5 minutes as needed for Chest pain. 90 tablet 3 02/09/2013 02/06/2016 pantoprazole (PROTONIX) 40 mg tablet Take 1 tablet by mouth daily. 90 tablet 11 02/09/2013 06/22/2013 Mometasone (NASONEX) 50 mcg/Actuation [place] 12/11/2005 6 documented as of this encounter Progress Notes * Chaz Babb MD - 02/09/2013 7:22 PM EST S. The patient was seen and examined on rounds. Vital signs were stable, a thorough physical exam was conducted, and the patients most recent lab values were reviewed. Last value Range last 24 hrs Temperature Temp: 37 ??C (98.6 ??F) Temp: [36.8 ??C (98.2 ??F)-37 ??C (98.6 ??F)] Heart Rate Heart Rate: 58 Heart Rate: [58-70] Blood Pressure BP: 129/72 mmHg BP: (123-131)/(42-72) Respiratory Rate Resp: 18 Resp: [18] SpO2 SpO2: 95 % SpO2: [95 %-96 %] General: Patient awake, alert in bed in NAD HEENT: Sclerae anicteric; MMM Heart: Regular rate/rhythm Lungs: CTAB Abdomen: Soft, NTND Ext: Warm 2+ pulses A/P Medications were reviewed, and a discharge plan was finalized. IV access was removed, and the patient was provided with educational material prior to discharge. The patient was discharged in stable condition. Please see the discharge summary of today's date for complete assessment and plan Genie Galan MD #[id number] Cardiology Staff Addendum I have discussed, reviewed and agree with the documented interval history, Physical findings, Assessment and Plan of care. I have independently interviewed and examined the patient myself and have noadditions to the interval history, physical, assessment or plan of care. * Chaz Babb MD - 02/08/2013 7:31 AM EST Inpatient Cardiology Progress Note Patient Name: Osbaldo Peters Service: S1 Responsible Attending: Dr. Babb Reason for continued hospitalization: Awaiting cardiac catherization ID: 68 y.o. male ex-smoker with inferior STEMI s/p HUMBLE to OM2. Active Problems: There are no hospital problems to display for this patient. Interval History: ?? Patient admitted to [facility] ?? Cardiac cath yesterday Review of Systems: Denies CP, SOB N/V. Telemetry: Occasional PVCs, Beats of NSVT Meds: Scheduled Meds: ??? potassium chloride 40 mEq Oral BID ??? aspirin 81 mg Oral Daily ??? sodium chloride 0.9 % 5 mL Intravenous Q12H ??? metoprolol tartrate 12.5 mg Oral Q6H ASHOK ??? clopidogrel 75 mg Oral Daily ??? atorvastatin 80 mg Oral Nightly ??? pantoprazole 40 mg Oral Daily ??? [COMPLETED] diphenhydrAMINE 25 mg Oral Once ??? [COMPLETED] diaZEPam 5 mg Oral Once ??? [DISCONTINUED] aspirin 325 mg Oral Daily ??? [COMPLETED] clopidogrel 300 mg Oral Daily ??? [DISCONTINUED] clopidogrel 75 mg Oral Daily ??? [DISCONTINUED] aspirin 325 mg Oral Daily Continuous Infusions: ??? [DISCONTINUED] nitroGLYcerin 10 mcg/min (02/07/131999) ??? [DISCONTINUED] heparin Stopped (02/07/132014) ??? [DISCONTINUED] bivalirudin (ANGIOMAX) infusion Stopped (02/07/132111) PRN Meds:.nitroGLYcerin, acetaminophen, [] fentaNYL (PF), [] OXYcodone-acetaminophen,[DISCONTINUED] heparin (porcine), [DISCONTINUED] fentaNYL (PF), [DISCONTINUED] midazolam, [DISCONTINUED] bivalirudin, [DISCONTINUED] bivalirudin (ANGIOMAX) infusion, [DISCONTINUED] clopidogrel, [DISCONTINUED] nitroGLYCerin, [DISCONTINUED] niCARdipine, [DISCONTINUED] atropine, [DISCONTINUED] midazolam, [DISCONTINUED] acetaminophen, [DISCONTINUED] nitroGLYcerin Physical Exam: Vital Signs: Last value Range last 24 hrs Temperature Temp: 36.8 ??C (98.2 ??F) Temp: [36.7 ??C (98.1 ??F)-37.2 ??C (99 ??F)] Heart Rate Heart Rate: 66 Heart Rate: [56-82] Blood Pressure BP: 129/56 mmHg BP: (92-138)/(39-90) Respiratory Rate Resp: 16 Resp: [13-23] SpO2 SpO2: 94 % SpO2: [90 %-98 %] Art BP BP (Arterial Line): -- Physical Exam: General: patient awake alert in NAD HEENT: PERRLA, MMM Heart: Regular, No M/R/G Lungs: Clear; no rales/rhonchi Abdomen: Soft, NTND; NABS Ext: Warm, 2+ radial pulses, no edema Lab Comments: Recent Labs Basename 02/08/13 0215 02/07/13 2155 02/07/13 1624 WBC 10.7* 11.2* 11.7* HGB 12.8* 12.6* 13.6* HCT 38.6* 37.4* 39.7* PLATELET 152 147 147 Recent Labs Basename 02/07/13 1624 INR 1.0 Recent Labs Basename 02/08/13 0845 02/08/13 0215 02/07/13 1624 NA -- 140 142 K 3.6 Hemolyzed 4.3 CL -- 106 108* CO2 -- 21* 23 BUN -- 17 20 CREATININE -- 0.98 0.95 Recent Labs Basename 02/07/13 1624 AST 22 ALT 34 ALKPHOS 69 BILITOT 0.3 BILIDIR 0.1 Recent Labs Basename 02/08/13 02102/07/13 1624 CALCIUM 8.5 8.5 MAGNESIUM 0.89 0.81 PHOS -- 2.3* Recent Labs Basename 02/08/13 0845 02/08/13 0215 02/07/13 2155 CK 899* 703* 576* TROPONINT 2.37* 1.30* 0.86* Pertinent Radiographic/Diagnostic Results: 02/07Cardiac Cath: ?? One vessel CAD (LCX) ?? Elevated LVEDP ?? Successful thrombectomy and stent to ostial OM2 lesion ?? HUMBLE placed 02/07 TTE: SUMMARY: 1. Technically limited study. 2. There is normal global left ventricular systolic function. Ejection fraction is estimated to be 65%. There is an area of probable hypokinesis at the mid to distal posterior wall. Contrast was not administered. This could be considered if clinically indicated. 3. Other details below. Assessment: Osbaldo Peters is a 68 y.o. male S/p HUMBLE to OM2 lesion. The patient was doing well thismorning with no complaints of pain or shortness of breath. He is stable for transfer to the floor today. Plan: STEMI -Atorvastatin -Metoprolol -ASA 325 -Plavix 75 -Nitro gtt Pain -Tylenol prn PPx: Protonix 40 mg Genie Galan PGY-1 #[id number] Cardiology Staff Addendum I have discussed, reviewed and agree with the documented interval history, Physical findings, Assessment and Plan of care. I have independently interviewed and examined the patient myself and have noadditions to the interval history, physical, assessment or plan of care. Genie Bill MD - 02/08/2013 6:30 AM EST Post Cath Note S: No chest pain, dyspnea, abdominal, groin, or back pain. Dressing clean and dry, no signs of infection, no bleeding from R femoral access site. O: Last value Range last 24 hrs Temperature Temp: 36.8 ??C (98.2 ??F) Temp: [36.7 ??C (98.1 ??F)-37.2 ??C (99 ??F)] Heart Rate Heart Rate: 66 Heart Rate: [56-82] Blood Pressure BP: 129/56 mmHg BP: (92-138)/(39-90) Respiratory Rate Resp: 16 Resp: [13-23] SpO2 SpO2: 94 % SpO2: [90 %-98 %] Art BP BP (Arterial Line): -- General: Lying in bed in NAD. Abd: No flank or back tenderness. Groin: Right femoral access site without hematoma or ecchymoses. No bleeding or bruits. Ext: warm, sensation intact, 2+ PT pulses. A/P: Osbaldo Peters is a 68 y.o. male s/p cath with benign appearing right femoral access site. Continue current management plan. Genie Galan PGY-1 #[id number] * Katie Layton RN - 02/07/2013 4:47 PM EST 1600 - 1700: Pt arrived via ambulance directly into [facility]. Vital signs stable. Pt denies any chestpain or SOB at this time. He arrives on heparin gtt at 1000units/hr and Nitro gtt at 10mcg/min. EKGdone. Labwork drawn and sent. Resident in to assess patient. 5mg IV metoprolol x1 given. Pt will begoing to cath soon. documented in this encounter H&P Notes * Chaz Babb MD - 02/07/2013 4:47 PM EST Cardiology Admission H&P CC: Inferior STEMI HPI: Mr. Peters is a 68 year-old obese gentleman & ex-smoker who presented to [facility] earlier this afternoon with chest pain and transferred to [facility] for STEMI-alert. He woke up early this morning and shoveled snow around his house first and then proceeded later this afternoon around 11AM to shovel snow in front of his [employer] shop. He was using an electronic financial services consultant and after a few rounds in front of his shop, felt a sudden, 10/10 on pain-scale, substernal pressure that radiated down his right arm. He stopped shoveling, went back into his shop, sat down and drank a diet coke. He's had similar pains like this (though not as intense) occuring intermittently over the past few months and then more frequently in the last 2 weeks. The episodes usually lasted ~30minutes and were relieved with rest. He attributed the episodes to old age. He even went to his PCP 2 weeks ago with the complaint of 'worsening fatigue' but his work-up at that time was unrevealing. He has no history of coronary disease, never seen a specialist employee labor relations or had a stress test. When his pain didn't alleviate despite rest & a diet coke he called his who immediately drove him to [facility] ED. EKG revealed 2mm ST-elevations in inferior leads and a STEMI-alert was activatedwith plans for [facility] transfer within minutes. He was hypertensive (BP 167/87), HR 74, RR 22, O2 97% on RA and AA&Ox3. He was given Aspirin 650mg x1, Heparin 4000U bolus & infusion, Plavix 300mg x1, TNK 50mg IV, Lopressor 5mg IV x3, Morphine 10mg x1 and started on a Nitro- infusion. He [facility]to the [facility] (cath-lab was occupied temporarily) and was chest pain free. ROS: Denies fevers, chills, headaches, dizziness, dry mouth, vision changes, dysphagia, sore throat, cough, shortness of breath, chest pain, palpitations, abdominal pain, N/V/C/D, dysuria, numbness or tingling, easy bruising or bleeding. PMH: None. PSH: Appendectomy L-eyelid surgery Medications: Fish oil. Allergies: Alcohol Exam: Vitals: Afebrile HR 90 RR 21 BP 153/124 O2 91% on 4L NC Gen: Middle-aged male, obese, sitting up in bed conversant & in NAD HEENT: MMM, OP clear, JVD 3-4cm H20 CVS: RRR, no m/r/g Lungs: CTAB Abd: Soft, NT, ND, +BS Ext: No edema or cyanosis. 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 A/P: Mr. Peters is a 68 year-old obese gentleman and ex-smoker who presented to [facility] earlier this afternoon with chest pain and transferred to [facility] for STEMI- alert. Plan for revascularization as soonas cath-lab is available but I suspect his acute plaque rupture may have resolved with lytics givenrapid improvement in ST-elevations and chest pain resolution. # Inferior STEMI - Coronary angiogram - Cycle enzymes & daily EKGs - Telemetry monitoring - Heparin ggt (until revascularization) - Plavix 75mg qd - Aspirin 81mg qd - Atorvastatin 80mg qPM - Metoprolol 12.5mg q6h (hold for HR < 60) - Lisinopril 2.5mg tomorrow AM (hold for SBP < 100) - Echocardiogram tomorrow AM - IVF for hypotension # Routine Maintenance - DVT PPX: Heparin ggt, Venodynes - GI PPX: Protonix 40 qd - IVF: on (pre-cath) / Gomes: off - Diet: NPO (pre-cath) - F/u A1C and LDL - Dispo: To be seen - Code: FULL Jana Stern, PGY-2 Pager: [phone] Tack Driller Addendum @ 2254, 02/07/13: 68 yo obese former smoker who presented to [facility] this afternoon with substernal, exertional CP aftershoveling snow. Symptoms began at approximately 10am and he presented to [facility] by 1pm, where he was found to have 2mm LUCAS's inferiorly and continued chest pain. He received full dose aspirin there, along with plavix 300 mg PO and full dose TNK with resolution of his pain. By the time he arrived at [facility] his ST segments had improved to sub-1mm elevations and he remained chest pain free. In the 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 laboratory technician he was found to have a long segmental ostial OM2 95% lesion with mild difuse disease of the LCx,LAD and RCA. He received a 32 mm x 3 mm promus HUMBLE to the OM2. His LVEDP was 34, so he received 20 mg of lasix IV. Remained HD intact and chest pain free after the case, and is being transported to CV now. Admit to CV for overnight monitoring. DC Heparin gtt Plavix 75 daily ASA 81 daily High dose statin - lipitor 80 mg QHS Post-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 laboratory technician ECG for baseline, and continue to follow Would monitor volume status overnight - avoid excessive IVF's Cardiology Staff Addendum I have discussed, reviewed and agree with the documented HPI, past medical history, social history,family history, ROS, medication history, Physical findings, Assessment and Plan of care. I have independently interviewed and examined the patient myself and have no additions to the history, physical, assessment or plan of care. documented in this encounter Procedure Notes * Provider, Scanning - 02/11/2013 8:39 AM ESTAssociated Order(s): CARDIAC CATHETERIZATION * Provider, Scanning - 02/10/2013 11:47 AM ESTAssociated Order(s): SCAN DOC: EARLY MORNING BABYSITTER * Provider, Scanning - 02/10/2013 11:47 AM ESTAssociated Order(s): SCAN DOC: CARDIAC CATH * Provider, Scanning - 02/08/2013 8:09 AM ESTAssociated Order(s): CARDIAC CATHETERIZATION * Provider, Scanning - 02/07/2013 9:38 PM ESTAssociated Order(s): CARDIAC CATHETERIZATION documented in this encounter Miscellaneous Notes * Miscellaneous - Provider, Scanning - 02/10/2013 11:47 AM EST * Discharge Summary - Bobby Carvalho - 02/09/2013 3:26 PM EST Inpatient - Discharge Summary Patient Name: Osbaldo Peters Patient Age: 68 y.o. Birthdate: 1945 Admit date: 02/07/2013 Discharge date and time: 02/09/13 2 PM Attending Physician: Dr. Chaz Babb Follow-up Recommendations for Providers: (1) check basic labs (2) optimize double product control, consider adding pedro inhibitor and/or titrating metoprolol (3) assess volume status (no clinical evidence of overload after cath, although filling pressures elevated at time of (4) patient received HUMBLE, continue plavix 1 year ideally, at least 3 months if bleeding problems (5) cont regimen w/ daily ASA and statin (6) scheduled for PCP f/u in 1-2 weeks and cardiology f/u at [facility] in ~1 month Discharge Diagnoses (Hospital Problems) and Secondary Diagnoses (Chronic Problems): Active Hospital Problems Diagnosis ??? ST elevation myocardial infarction (STEMI), initial episode of care Resolved Hospital Problems Diagnosis Date Resolved No resolved problems to display. Operations/Major Procedures: Operations: Procedure(s) with comments: CARDIAC CATHETERIZATION - Procedure: Coronary Angiography History of Presentation: Mr. Peters is a 68 year-old obese gentleman & ex-smoker who presented to [facility] earlier this afternoon with chest pain and transferred to [facility] for STEMI-alert. He woke up early this morning and shoveled snow around his house first and then proceeded later this afternoon around 11AM to shovel snow in front of his [employer] shop. He was using an electronic financial services consultant and after a few rounds in front of his shop, felt a sudden, 10/10 on pain-scale, substernal pressure that radiated down his right arm. He stopped shoveling, went back into his shop, sat down and drank a diet coke. He's had similar pains like this (though not as intense) occuring intermittently over the past few months and then more frequently in the last 2 weeks. The episodes usually lasted ~30minutes and were relieved with rest. He attributed the episodes to old age. He even went to his PCP 2 weeks ago with the complaint of 'worsening fatigue' but his work-up at that time was unrevealing. He has no history of coronary disease, never seen a specialist employee labor relations or had a stress test. When his pain didn't alleviate despite rest & a diet coke he called his who immediately drove him to [facility] ED. EKG revealed 2mm ST-elevations in inferior leads and a STEMI-alert was activatedwith plans for [facility] transfer within minutes. He was hypertensive (BP 167/87), HR 74, RR 22, O2 97% on RA and AA&Ox3. He was given Aspirin 650mg x1, Heparin 4000U bolus & infusion, Plavix 300mg x1, TNK 50mg IV, Lopressor 5mg IV x3, Morphine 10mg x1 and started on a Nitro- infusion. He [facility]to the [facility] (cath-lab was occupied temporarily) and was chest pain free. Hospital Course: STEMI: The patient was taken to the 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 laboratory technician, where he was found to have CAD of the L Cx and underwent thrombectomy and stent to ostial OM2 lesion with a drug eluting stent. He remained pain free and asymptomatic following the procedure. Although filling pressures were elevated during cath he showed no signs of volume overload on exam, and EF was 65% on TTE, with probable mid/distal posterior hypokinesis. He was maintained on a medical regimen with cardioprotective medications and double product control was optimized. Discharged on beta- martin, ASA, statin, and plavix with clear instructions for duration of plavix therapy and appropriate follow-up scheduled in cardiology and primary care. No pedro-i started as his BP's were on the low side, but this could be considered as an outpatient. He was seen by cardiac rehab prior to discharge and plans to participate in an outpatient cardiac rehab program. Important Studies and Lab Data: Labs: Recent Labs Basename 02/09/13 03302/08/1321402/07/13 2155 WBC 10.6* 10.7* 11.2* HGB 13.0* 12.8* 12.6* HCT 38.9* 38.6* 37.4* PLATELET 132* 152 147 Recent Labs Basename 02/07/13 1624 INR 1.0 Recent Labs Basename 02/09/13 0332 02/08/13 0845 02/08/1321402/07/13 1624 NA 138 -- 140 142 K 4.2 3.6 Hemolyzed -- CL 104 -- 106 108* CO2 23 -- 21* 23 BUN 17 -- 17 20 CREATININE 0.92 -- 0.98 0.95 Recent Labs Basename 02/07/13 1624 AST 22 ALT 34 ALKPHOS 69 BILITOT 0.3 BILIDIR 0.1 Recent Labs Basename 02/09/13 0332 02/08/1321402/07/13 1624 CALCIUM 9.0 8.5 8.5 MAGNESIUM 0.82 0.89 0.81 PHOS -- -- 2.3* Recent Labs Basename 02/09/13 0332 02/08/13 0845 02/08/13 021 CK 341* 899* 703* TROPONINT 1.48* 2.37* 1.30* Recent Labs Basename 02/07/13 1624 TSH 0.94 Recent Labs Basename 02/08/13 021 HA1C 5.3 Lab Results Component Value Date CHLPL 180 02/08/2013 HDL 46 02/08/2013 CHOLHDL 3.9 02/08/2013 TRIG 231* 02/08/2013 LDLCHOL 88 02/08/2013 Studies: 02/07 Cardiac Cath: One vessel CAD (LCX) Elevated LVEDP Successful thrombectomy and stent to ostial OM2 lesion HUMBLE placed 02/07 TTE: SUMMARY: 1. Technically limited study. 2. There is normal global left ventricular systolic function. Ejection fraction is estimated to be 65%. There is an area of probable hypokinesis at the mid to distal posterior wall. Contrast was not administered. This could be considered if clinically indicated. 3. Other details below. Pending Studies and Lab Data: none Discharge Conditions/Prognosis: stable Discharge to: home Discharge Medications: Discharge Medication List as of 02/09/2013 1:52 PM New Meds Details aspirin 81 mg EC tablet Take 1 tablet by mouth daily., Oral, DAILY Starting 02/09/2013, Until Discontinued, Disp-30 tablet, R-11, Normal atorvastatin (LIPITOR) 80 mg tablet Take 1 tablet by mouth nightly., Oral, NIGHTLY Starting 02/09/2013, Until Discontinued, Disp-30 tablet, R-11, Normal clopidogrel (PLAVIX) 75 mg tablet Take 1 tablet by mouth daily., Oral, DAILY Starting 02/09/2013, Until Discontinued, Disp-30 tablet, R-11, Normal metoprolol succinate (TOPROL-XL) 50 mg 24 hr tablet Take 1 tablet by mouth daily., Oral, DAILY Starting 02/09/2013, Until Discontinued, Disp-30 tablet, R- 12, Normal nitroGLYcerin (NITROSTAT) 0.[address] 1 tablet under the tongue every 5 minutes as needed for Chest pain., Sublingual, EVERY 5 MIN PRN Starting 02/09/2013, Until Discontinued, Chest pain, Disp-90 tablet, R-3, Normal pantoprazole (PROTONIX) 40 mg tablet Take 1 tablet by mouth daily., Oral, DAILY Starting 02/09/2013, Until Discontinued, Disp-90 tablet, R-11, Normal Continued medications, unchanged Details Mometasone (NASONEX) 50 mcg/Actuation [place] Nasal cetirizine-psuedoephedrine (ZYRTEC-D) 5-120 mg per tablet Oral Updated Allergies/ADRs: Allergies 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 Instructions Given to Patient at Discharge: Provider Instructions Instruction after leaving the hospital Why you were hospitalized: heart attack Call your doctor or seek medical attention if you develop the following: chest pain, shortness of breath, swelling, fevers, chills, or any other new or concerning symptoms Activity level: you can gradually return to normal activities as tolerated, avoiding over-exertion early on; as discussed, we recommend a cardiac rehabilitation program Diet: recommend a diet low in saturated fat and rich in fresh fruits and vegatables Your Inpatient Doctor(s) at [facility]: (most recent inpatient cardiology team) Dr. Babb, Dr. Jackson, Dr. Carvalho, Dr. Galan Call your doctor if: Chest pain, shortness of breath, pain or swelling in legs occurs. If you have non-emergent questions between now and the time of your follow up appointments: During 8am-5pm Friday through Friday call [phone] to speak with a nurse in the cardiology clinic All other times call [phone] and ask to speak to the rn oncology second crusher. Return to work: One week Driving: No driving for 48 hours after 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. Follow up Appointments: PCP: We have scheduled you to be seen by Dr. 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 Babb at [facility] on 03/23/2013 at9:20 AM Specific instructions related to your condition: You were hospitalized for a heart attack. This was because of blockage in the arteries that supply blood to your heart. You underwent cardiac 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, which is a way of visualizing the coronary arteries, identifying blockages, and treating them if possible. In your case, a blockage was identified and a stent was placed into in order to open the vessel back up. In order to prevent future heart attacks or heart failure, which can result from heart attacks, there are some important things for you to do: 1) Medications: Because of your stent you need to take a medication called plavix, or clopidogrel, every day to make sure the stent stays open. You need to take this until your specialist employee labor relations tells you to stop taking it. Typically this is for a year, unless you have problems with the medication (such as major bleeding), in which case it still must be at least 3 months. This is of utmost importance. In addition to this, we have prescribed you several additional medications that will help your heart to heal as well as possible and lower your risk of future heart attacks. These include atorvastatin, aspirin, and metoprolol. Aspirin and plavix increase your risk of bleeding, so you should be extra careful while t aking these medications and seek care immediately if you have any signs of bleeding, notice black tarry stool, or have a head injury. We have also prescribed an acid reducing medicine called protonix, or pantoprazole, to reduce the risk of stomach ulcers and bleeding from your gastrointestinal tract. If there are any problems with your medications, the copayments, or you have any questions, please contact a doctor immediately. You can contact is using the contact information below, or you can also contact your primary care doctor or specialist employee labor relations office. 2) Life style modifications: Eating a nutritious diet that includes lots of fruits and vegetables and low amounts of saturated fat (as found in dairy and meat products), and maintaining a healthy amount of physical activity are important, as well as avoiding smoking. We recommend cardiac rehab as described above. 3) Medical follow-up Close follow-up with your primary care and specialist employee labor relations are of utmost importance as well. General Instructions None Future Appointments and Orders Future Appointments: Provider: Department: Dept Phone: Center: 03/23/2013 9:20 AM Chaz Babb MD Cardiology [phone] [facility] Joint Appt Nurse One Cardiology Intake, OREN UMAÑA 4A [phone] [facility] Future Orders Please Complete By Expires Referral to Cardiac Rehab [[id number] Custom] Process Instructions: If no progress note charted, please enter Clinical details in comments. Scheduling Instructions: Comments: Cardiac rehab at [facility] in [place], [place] Questions: Responses: Reason for referral STEMI Discharge References/Attachments: Discharge References/Attachments HEART ATTACK: AFTER YOUR VISIT (UGANDAN) REDUCING HEART ATTACK RISK WITH DAILY MEDICINE: AFTER YOUR VISIT (UGANDAN) PERCUTANEOUS CORONARY INTERVENTION: WHAT TO EXPECT AT HOME (UGANDAN) Inpatient Provider Contact Information: [facility] [phone] Electronically Signed By: BOBBY CARVALHO MD 02/09/2013 * Consult Note - Jalyn Hugo RN - 02/09/2013 11:17 AM EST Patient ambulating around unit ad maicol. Feeling great and planning for discharge later today. We did a flight of stairs. VSS. No complaints. Plan as per yesterday's evaluation. See my note for details. Cardiac rehab at [facility]. * Miscellaneous - Provider, Scanning - 02/08/2013 4:18 PM EST * Miscellaneous - Provider, Scanning - 02/08/2013 4:17 PM EST * Consult Note - Jalyn Hugo RN - 02/08/2013 11:40 AM EST Cardiac Rehabilitation Inpatient Evaluation Primary Cardiac Diagnosis: STEMI, PCI Cardiac Risk Factors: Smoking: no Overweight: yes Hyperlipidemia: high TGY Sedentary: no HTN: yes Family history: no DM: no Stress: denies Patient Education: Reviewed cardiac cath findings, implications of coronary artery disease, managing angina and risk factor modification. Mr. Peters wears a pedometer and stated that he usually gets 14k steps per day. He is always on the go with his [employer] store. His tells him he should slowdown. Given parameters for home exercise. He recently had evaluation with his PCP and had lipids checked. Lipids values and treatment goals reviewed. Phase II Referral: [facility] Activity Summary: By discharge, patient will be able to perform self care, walk 5-7 minutes and go up and down stairs without signs or symptoms of ischemia. 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 SCAN 02/10/2013 11:47 AM EST CARDIAC CATH SCAN 02/10/2013 11: 47 AM EST DIFFERENTIAL, AUTOMATED Routine 02/10/20 3:32 AM EST CARDIAC ENZYMES ([facility]) Routine 02/09/2013 3:32 AM EST CBC (WITH DIFF) Routine 02/09/2013 3:32 AM EST MAGNESIUM Routine 02/09/2013 3:32 AM EST BASIC METABOLIC PANEL Routine 02/09/2013 3:32 AM EST CARDIAC ENZYMES ([facility]) Routine 02/08/2013 8:45 AM EST POTASSIUM Routine 02/08/2013 8:45 AM EST EKG 12-LEAD Routine 02/08/2013 7: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 BMP W/FASTING GLUCOSE Routine 02/08/2013 2:15 AM EST DIFFERENTIAL, AUTOMATED Routine 02/09/20 13 2:15 AM EST CARDIAC ENZYMES ([facility]) Routine 02/08/2013 2:15 AM EST CBC (WITH DIFF) Routine 02/08/2013 2:15 AM EST MAGNESIUM Routine 02/08/2013 2:15 AM EST HEMOGLOBIN A1C Routine 02/08/2013 2:15 AM EST LIPID PANEL (REFLEX DIRECT LDL) Routine 02/08/2013 2:15 AM EST DIFFERENTIAL, AUTOMATED Routine 02/08/20 13 9:55 PM EST CARDIAC ENZYMES ([facility]) STAT 02/07/2013 9:55 PM EST CBC (WITH DIFF) Routine 02/07/2013 9:55 PM EST EKG 12-LEAD Routine 02/07/2013 9: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 CARDIAC CATHETERIZATION Routine 02/08/20 9:29 PM EST ECHOCARDIOGRAM TRANSTHORACIC Routine 02/07/2013 7:57 PM EST Chest pain EKG 12-LEAD STAT 02/07/2013 4:25 PM EST Chest pain DIFFERENTIAL, AUTOMATED Routine 02/08/20 13 4:24 PM EST CARDIAC ENZYMES ([facility]) Routine 02/07/2013 4:24 PM EST PROTHROMBIN TIME Routine 02/07/2013 4:24 PM EST CBC (WITH DIFF) Routine 02/07/2013 4:24 PM EST TSH Routine 02/07/2013 4:24 PM EST PHOSPHORUS Routine 02/07/2013 4:24 PM EST PRO-BRAIN NATRIURETIC PEPTIDE Routine 02/07/2013 4:24 PM EST MAGNESIUM Routine 02/07/2013 4:24 PM EST HEPATIC FUNCTION PANEL Routine 3 4:24 PM EST BASIC METABOLIC PANEL Routine 02/07/2013 4:24 PM EST POCT GLUCOSE Routine 02/07/2013 4:01 PM EST documented in this encounter Results * SCAN DOC: CARDIAC CATH (02/10/2013 11:47 AM EST) Anatomical Region Laterality Modality Other Narrative 02/10/2013 11:55 AM EST Procedure Note Provider, Scanning - 02/10/2013 11:47 AM EST Scanning Provider MEDIA MGR SCAN EXT O RDR/RSLT * SCAN DOC: EARLY MORNING BABYSITTER (02/10/2013 11:47 AM EST) Anatomical Region Laterality Modality Other Narrative 02/10/2013 11:55 AM EST Procedure Note Provider, Scanning - 02/10/2013 11:47 AM EST Scanning Provider MEDIA MGR SCAN EXT O RDR/RSLT * (ABNORMAL) Cardiac Enzymes (02/09/2013 3:32 AM EST) Pathologist [facility] Troponin-T 1.48(H) <=0.03 ng/mL [employer] Comment: 0.03 ng/mL: Represents the 99th percentile upper reference limit for normals. >0.03 ng/mL: Elevated cardiac troponin T level indicative of myocardial damage. Diagnosis of acute, evolving or recent [place] requires a typical rise and gradual fall of cTnT with at least ONE of the following: a) Ischemic symptoms b) Development of pathologic Q waves on the ECG c) ECG changes indicative of eschemia (S-T segment elevation/depression) d) Coronary artery intervention Serial bloods should be obtained for testing on admission, at 6 to 9 hrs and again at 12 to 24 hrs if earlier samples are negative and the clinical index of suspicion is high. Reference: [Myocardial infarction redefined? a consensus document of the Joint Society of Cardiology/[place] College [employer] Cardiology Committee for the redefinition of myocardial infarction. ??Journal of the [place] College of Cardiology 2000; 36: 959-969] Creatine Kinase 341(H) 0 - 200 unit/L [employer] Blood specimen (specimen) 02/09/2013 3:32 AM EST 02/09/2013 3:38 AM EST Narrative Resulting Agency Comment Spec In Lab Chaz Babb MD CHEMISTRY ORDERABLES [facility]ERNER MILLENNI[facility] * (ABNORMAL) Differential, Automated (02/09/2013 3:32 AM EST) Neutrophil % 60.6 34.0 - 71.0 % CERNER MILLENNIUM Neutrophil Absolute 6.41(H) 1.50 - 6.30 x10(3)/mc L [facility]ILL[facility]NI[facility] Lymph % 27.0 19.0 - 53.0 % [facility] Lymphocytes Abs 2.9 1.0 - 3.6 x10(3)/mc L [facility] Monocyte % 9.3 4.0 - 13.0 % [facility]ILL[facility] Monocyte Abs 1.0 0.2 - 1.0 x10(3)/mc L [facility] Eos % 2.0 0.0 - 7.0 % [facility] MILLENNI[facility] Eosinophils Abs 0.2 0.0 - 0.5 x10(3)/mc L [facility] Basophil % 0.3 0.0 - 2.0 % CERNER MILLENNIUM Baso Absolute 0.0 0.0 - 0.2 x10(3)/mc L [facility] Immature Gran % 0.80(H) 0.00 - 0.66 % [facility] Comment: Immature granulocytes(IG's)percentage and absolute count will include metamyelocytes, myelocytes, and promyelocytes. Blood smears from CBCs yielding IG's will be scanned manually for concordance. If this scan disagrees with the automated IG or if promyelocytes are noted, a manual differential will be performed. Immature Gran Absolute 0.09(H) 0.00 - 0.05 x10(3)/mc L [facility] Blood specimen (specimen) 02/09/2013 3:32 AM EST 02/09/2013 3:38 AM EST Chaz Babb MD HEMATOLOGY ORDERABLE S [facility] * (ABNORMAL) CBC (with Diff) (02/09/2013 3:32 AM EST) White Blood Cell 10.6(H) 4.0 - 10.0 x10(3)/mc L [facility] Red Blood Cell 4.40(L) 4.63 - 6.08 x10(6)/mc L [facility] Hemoglobin 13.0(L) 13.7 - 17.5 gm/dL [facility] Hematocrit 38.9(L) 40.0 - 51.0 % [facility] MILLENNI[facility] Mean Cell Volume 88.4 79.0 - 92.0 fL [facility]ILLENNI[facility] Mean Cell Hemoglobin 29.5 25.6 - 32.2 pg [facility] Mean Cell Hemoglobin Concentration 33.4 32.0 - 36.5 gm/dL [facility]ILLENNI[facility] Platelet 132(L) 145 - 370 x10(3)/mc L [facility] RDW Standard Deviation 44.0 35.0 - 46.0 fL [facility] MILLENNI[facility] RDW coefficient of variation 13.6 10.9 - 14.4 % CERNER MILLENNIUM Mean Platelet Volume 11.8 9.0 - 12.0 fL [facility] Blood specimen (specimen) 02/09/2013 3:32 AM EST 02/09/2013 3:38 AM EST Narrative Resulting Agency Comment Spec In Lab Chaz Babb MD HEMATOLOGY ORDERABLE S Performing Organization Address City/[facility] Co la Phone Number LEONARD BARBERENNIUM * Magnesium (02/09/2013 3:32 AM EST) Magnesium 0.82 0.69 - 1.07 mmol/L [facility] Blood specimen (specimen) 02/09/2013 3:32 AM EST 02/09/2013 3:37 AM EST Narrative Resulting Agency Comment Spec In Lab Chaz Babb MD CHEMISTRY ORDERABLES Performing Organization Address City/[facility] Co de Phone Number LEONARD BARBERENNIUM * Basic Metabolic Panel (non-fasting) (02/09/2013 3:32 AM EST) [facility] Signature Glucose 97 60 - 199 mg/dL [facility] Comment:Diabetes: >=200 mg/d L plus symptoms Blood Urea Nitrogen 17 10 - 20 mg/dL [facility] Creatinine 0.92 0.80 - 1.50 mg/dL [facility] Comment: Please note that the pediatric reference intervals supplied above were not validated at [facility]. Results from pediatric patients should be interpreted in conjunction to the patient's age, height and muscle mass. Sodium 138 135 - 145 mmol/L [facility] Potassium 4.2 3.5 - 5.0 mmol/L [facility] Comment: Please note: ??Patients with WBC >100,000 may have falsely elevated Potassium levels. ??For accurate Potassium quantification in these patients send serum separator tube (gold top) for subsequent determinations. ??Contact the Clinical Chemistry Laboratory if there are any questions. Chloride 104 98 - 107 mmol/L [facility]ILLEN[facility] Carbon Dioxide 23 22 - 31 mmol/L [facility] MILLENNI[facility] Anion Gap 11 5 - 15 mmol/L [facility]ERN[facility] MILLENNIUM Calcium 9.0 8.5 - 10.5 mg/dL CERNER MILLENNIUM Est Glomerular Filtration Rate >60 >=60 [facility]ERNER MILLENNIUM Comment: This estimated GFR (eGFR) value was calculated using the MDRD equation which has been validated on patients between the ages of 18 and 70. The MDRD should not be used to assess kidney function in patients < 18 years of age or in patients with extremes of body mass, or in patients with acute kidney failure. This value should be multiplied by 1.2 for patients. For further information please copy and paste the following links into your internet browser. http://www.nkdep.nih.gov/lab-evaluation.shtml http://www.kidney.org/professionals/ Blood specimen (specimen) 02/09/2013 3:32 AM EST 02/09/2013 3:37 AM EST Narrative Resulting Agency Comment Spec In Lab Chaz Babb MD CHEMISTRY ORDERABLES [facility]ER[facility]TON[facility]ORDONI[facility] * Potassium (02/08/2013 8:45 AM EST) Pathologist [facility] Potassium 3.6 3.5 - 5.0 mmol/L [facility] Comment: Please note: ??Patients with WBC >100,000 may have falsely elevated Potassium levels. ??For accurate Potassium quantification in these patients send serum separator tube (gold top) for subsequent determinations. ??Contact the Clinical Chemistry Laboratory if there are any questions. Blood specimen (specimen) 02/08/2013 8:45 AM EST 02/08/2013 8:56 AM EST Narrative Resulting Agency Comment Spec In Lab Chaz Babb MD CHEMISTRY ORDERABLES Performing Organization Address City/[facility] Co de Phone Number [facility] * (ABNORMAL) Cardiac Enzymes (02/08/2013 8:45 AM EST) [facility] Troponin-T 2.37(H) <=0.03 ng/mL [facility] Comment: result rechecked-ga 0.03 ng/mL: Represents the 99th percentile upper reference limit for normals. >0.03 ng/mL: Elevated cardiac troponin T level indicative of myocardial damage. Diagnosis of acute, evolving or recent [place] requires a typical rise and gradual fall of cTnT with at least ONE of the following: a) Ischemic symptoms b) Development of pathologic Q waves on the ECG c) ECG changes indicative of eschemia (S-T segment elevation/depression) d) Coronary artery intervention Serial bloods should be obtained for testing on admission, at 6 to 9 hrs and again at 12 to 24 hrs if earlier samples are negative and the clinical index of suspicion is high. Reference: [Myocardial infarction redefined? a consensus document of the Joint Society of Cardiology/[place] College of Cardiology Committee for the redefinition of myocardial infarction. ??Journal of the [place] College of Cardiology 2000; 36: 959-969] Creatine Kinase 899(H) 0 - 200 unit/L [facility] Blood specimen (specimen) 02/08/2013 8:45 AM EST 02/08/2013 8:56 AM EST Narrative Resulting Agency Comment Spec In Lab Chaz Babb MD CHEMISTRY ORDERABLES CERNER SUNILENNIUM * EKG 12 Lead (02/08/2013 7:25 AM EST) Ventricular rate 64 BPM MUSE SYSTEM Atrial Rate 64 BPM MUSE SYSTEM P-R Interval 164 ms MUSE SYSTEM QRS Duration 144 ms MUSE SYSTEM Q-T Interval 422 ms MUSE SYSTEM QTC Calculated (Bezet) 435 ms MUSE SYSTEM Calculated P [place] 58 degrees MUSE SYSTEM Calculated R [place] -33 degrees MUSE SYSTEM Calculated T [place] -2 degrees MUSE SYSTEM INTERPRETATION Normal sinus rhythm Left axis deviation Right bundle branch block Lateral infarct (cited on or before 07-FEB-2013) When compared with ECG of 07-FEB-2013 21:52, (unconfirmed) Inverted T waves have replaced nonspecific T wave abnormality in Inferior leads Confirmed by MD Murray, Frederick ([id number]) on 02/08/2013 9:32:31 PM MUSE SYSTEM 02/08/2013 7:25 AM EST 02/08/2013 9:32 PM EST Chaz Babb MD ECG ORDERABLES Performing Organization Address [facility] Co de Phone Number MUSE SYSTEM * (ABNORMAL) Differential, Automated (02/08/2013 2:15 AM EST) Neutrophil % 69.9 34.0 - 71.0 % CERNER MILLENNIUM Neutrophil Absolute 7.49(H) 1.50 - 6.30 x10(3)/mc L [facility] MILLENNI[facility] Lymph % 21.7 19.0 - 53.0 % CERNER MILLENNIUM Lymphocytes Abs 2.3 1.0 - 3.6 x10(3)/mc L CERNER MILLENNIUM Monocyte % 7.5 4.0 - 13.0 % CERNER MILLENNIUM Monocyte Abs 0.8 0.2 - 1.0 x10(3)/mc L CERNER MILLENNIUM Eos % 0.2 0.0 - 7.0 % CERNER MILLENNIUM Eosinophils Abs 0.0 0.0 - 0.5 x10(3)/mc L CERNER MILLENNIUM Basophil % 0.3 0.0 - 2.0 % CERNER MILLENNIUM Baso Absolute 0.0 0.0 - 0.2 x10(3)/mc L [facility]ERN[facility] MILLENNIUM Immature Gran % 0.40 0.00 - 0.66 % [facility]ERNER MILLENNIUM Comment: Immature granulocytes(IG's)percentage and absolute count will include metamyelocytes, myelocytes, and promyelocytes. Blood smears from CBCs yielding IG's will be scanned manually for concordance. If this scan disagrees with the automated IG or if promyelocytes are noted, a manual differential will be performed. Immature Gran Absolute 0.04 0.00 - 0.05 x10(3)/mc L [facility]EN[facility] Blood specimen (specimen) 02/08/2013 2:15 AM EST 02/08/2013 2:27 AM EST Chaz Babb MD HEMATOLOGY ORDERABLE S Performing Organization Address [facility] de Phone Number CERNER MILLENNIUM * Magnesium (02/08/2013 2:15 AM EST) Magnesium 0.89 0.69 - 1.07 mmol/L [facility]ERNER MILLENNIUM Blood specimen (specimen) 02/08/2013 2:15 AM EST 02/08/2013 2:27 AM EST Narrative Resulting Agency Comment Spec In Lab Chaz Babb MD CHEMISTRY ORDERABLES Performing Organization Address [facility] de Phone Number [facility] * (ABNORMAL) CBC (with Diff) (02/08/2013 2:15 AM EST) White Blood Cell 10.7(H) 4.0 - 10.0 x10(3)/mc L CERNER MILLENNIUM Red Blood Cell 4.34(L) 4.63 - 6.08 x10(6)/mc L CERNER MILLENNIUM Hemoglobin 12.8(L) 13.7 - 17.5 gm/dL CERNER MILLENNIUM Hematocrit 38.6(L) 40.0 - 51.0 % CERNER MILLENNIUM Mean Cell Volume 88.9 79.0 - 92.0 fL CERNER MILLENNIUM Mean Cell Hemoglobin 29.5 25.6 - 32.2 pg CERNER MILLENNIUM Mean Cell Hemoglobin Concentration 33.2 32.0 - 36.5 gm/dL CERNER MILLENNIUM Platelet 152 145 - 370 x10(3)/mc L CERNER MILLENNIUM RDW Standard Deviation 44.5 35.0 - 46.0 fL CERNER MILLENNIUM RDW coefficient of variation 13.8 10.9 - 14.4 % CERNER MILLENNIUM Mean Platelet Volume 12.1(H) 9.0 - 12.0 fL [facility] Blood specimen (specimen) 02/08/2013 2:15 AM EST 02/08/2013 2:27 AM EST Narrative Resulting Agency Comment Spec In Lab Chaz Babb MD HEMATOLOGY ORDERABLE S [facility] * (ABNORMAL) BMP w/fasting Glucose (02/08/2013 2:15 AM EST) Glucose Fasting 116(H) 65 - 99 mg/dL [facility]ILLEN[facility] Comment: ?Fasting* Glucose Interpretive Criteria Normal ?65-99 mg/dL Impaired Fasting glucose ?100-125 mg/dL Consistent with Diabetes Mellitus ? >or= 126 mg/dL *Fasting is defined as no caloric intake for at least 8 hours In the absence of unequivocal hyperglycemia a plasma glucose value of >or= 126 mg/dL should be repeated on a subsequent day. Diagnosis and Classification of Diabetes Mellitus, Position Statement from the [place] [employer]. ??Diabetes Care, Volume 33, Supplement 1, Feb 2009 Blood Urea Nitrogen 17 10 - 20 mg/dL CERNER MILLENNIUM Creatinine 0.98 0.80 - 1.50 mg/dL CERNER MILLENNIUM Comment: Please note that the pediatric reference intervals supplied above were not validated at [facility]. Results from pediatric patients should be interpreted in conjunction to the patient's age, height and muscle mass. Sodium 140 135 - 145 mmol/L CERNER MILLENNIUM Potassium Hemolyzed 3.5 - 5.0 mmol/L CERNER MILLENNIUM Comment: Called by: afp, Read back by: angus mchugh, Date/Time:02/08/13 03:05. Unable to quantitate due to sample hemolysis. ??Sample redraw suggested. Please note: ??Patients with WBC >100,000 may have falsely elevated Potassium levels. ??For accurate Potassium quantification in these patients send serum separator tube (gold top) for subsequent determinations. ??Contact the Clinical Chemistry Laboratory if there are any questions. Chloride 106 98 - 107 mmol/L CERNER MILLENNIUM Carbon Dioxide 21(L) 22 - 31 mmol/L CERNER MILLENNIUM Anion Gap 13 5 - 15 mmol/L CERNER MILLENNIUM Calcium 8.5 8.5 - 10.5 mg/dL CERNER MILLENNIUM Est Glomerular Filtration Rate >60 >=60 CERNER MILLENNIUM Comment: This estimated GFR (eGFR) value was calculated using the MDRD equation which has been validated on patients between the ages of 18 and 70. The MDRD should not be used to assess kidney function in patients < 18 years of age or in patients with extremes of body mass, or in patients with acute kidney failure. This value should be multiplied by 1.2 for patients. For further information please copy and paste the following links into your internet browser. http://www.nkdep.nih.gov/lab-evaluation.shtml http://www.kidney.org/professionals/ Blood specimen (specimen) 02/08/2013 2:15 AM EST 02/08/2013 2:27 AM EST Narrative Resulting Agency Comment Spec In Lab Chaz Babb MD CHEMISTRY ORDERABLES [facility] ESPINOS[facility] * (ABNORMAL) Cardiac Enzymes (02/08/2013 2:15 AM EST) Troponin-T 1.30(H) <=0.03 ng/mL LEONARD SUNILAILYNIUM Comment: 0.03 ng/mL: Represents the 99th percentile upper reference limit for normals. >0.03 ng/mL: Elevated cardiac troponin T level indicative of myocardial damage. Diagnosis of acute, evolving or recent [place] requires a typical rise and gradual fall of cTnT with at least ONE of the following: a) Ischemic symptoms b) Development of pathologic Q waves on the ECG c) ECG changes indicative of eschemia (S-T segment elevation/depression) d) Coronary artery intervention Serial bloods should be obtained for testing on admission, at 6 to 9 hrs and again at 12 to 24 hrs if earlier samples are negative and the clinical index of suspicion is high. Reference: [Myocardial infarction redefined? a consensus document of the Joint Society of Cardiology/[place] College of Cardiology Committee for the redefinition of myocardial infarction. ??Journal of the [place] College of Cardiology 2000; 36: 959-969] Creatine Kinase 703(H) 0 - 200 unit/L [facility] Blood specimen (specimen) 02/08/2013 2:15 AM EST 02/08/2013 2:27 AM EST Narrative Resulting Agency Comment Spec In Lab Chaz Babb MD CHEMISTRY ORDERABLES [facility] * Hemoglobin A1c (02/08/2013 2:15 AM EST) Hemoglobin A1c 5.3 4.3 - 6.1 % [facility] Comment: The [place] Diabetes Association (ADA) has stated that HbA1c values >or= 6.5% are consistent with the diagnosis of diabetes mellitus. In the absence of hyperglycemia (i.e. plasma glucose > 200 mg/dL) or classic symptoms of hyperglycemia a repeat measurement of HbA1c should be performed on a separate sample to confirm the diagnosis. The ADA also considers an HbA1c value between 5.7% and 6.4% to be consistent with an increased risk of diabetes (prediabetes). Patients with an HbA1c value in this range should be counseled about their increased risk of progressing to diabetes. Reference: Position Statement: Standards of Medical Care in Diabetes ? 2013. Diabetes Care 2013:36;suppl 1:S11-S66. Estimated Average Glucose 105 mg/dL [facility] Comment: eAG equivalents for HbA1c percentages: HbA1c(%) ?eAG(mg/dL) 6.0 ?126 6.5 ?140 7.0 ?154 7.5 ?169 8.0 ?183 8.5 ?197 9.0 ?212 9.5 ?226 10.0 ? 240 Limitations: The eAG calculation has not been validated on women, individuals below 18 years old and above 70 years old, and individuals with hemoglobinopathies. Additional resources are available on the ADA website: ??http://professional.diabetes.org/glucosecalculator.aspx Apolinar HOBSON, Jodie J, Jordin R, et al. ??Translating the A1C assay into estimated average glucose values. ??Diabetes Care 2008:31(8):7206-4756. Blood specimen (specimen) 02/08/2013 2:15 AM EST 02/08/2013 2:27 AM EST Narrative Resulting Agency Comment Spec In Lab Chaz Babb MD CHEMISTRY ORDERABLES [facility] * (ABNORMAL) Lipid panel (fasting) (02/08/2013 2:15 AM EST) Cholesterol, Total 180 <=199 mg/dL [facility] Comment: Recommendations of the NCEP Adult Treatment Panel for the following risk cutoff thresholds for the [place] population: Desirable: <200 mg/dL Borderline High: 200-239 mg/dL High: > or = 240 mg/dL Triglyceride 231(H) <=149 mg/dL [facility] Comment: Reference Range: Normal triglycerides: ??<150 mg/dL Borderline high: ??150-199 mg/dL High: ??200-499 mg/dL Very high: ??>lk=507 mg/dL LEOBARDO 2001; 285(19):1992-6124 HDL Cholesterol 46 >=40 mg/dL JANE NER MILLENNIUM Comment: Reference range: ??Low HDL: ?? < 40 mg/dL ??Normal: ?40-60 mg/dL ??Desirable: > 60 mg/dL LEOBARDO 2001; 285(19):9891-1299 LDL Cholesterol 88 <=99 mg/dL CER NER MILLENNIUM Comment: Reference range: ?? Optimal: ?<100 mg/dL ?? Near Optimal/Above Optimal: ?? 100-129 mg/dL ?? Borderline high: ?130-159 mg/dL ?? High: ? 160-189 mg/dL ?? Very high: ?>as=578 mg/dL LEOBARDO 2001: 285(19):3568-6245 Cholesterol/HDL Ratio 3.9 ratio CERNER MILLENNIUM Comment: A Cholesterol to HDL ratio below 4:1 is desirable. ??Studies suggest that increased CAD risk occurs at ratios above 5 for females and above 6 for men. ? [place] Heart Association ??(http://www.americanheart.org) ? Adore Int Med, 1994; 121:641 ? AM J Med, 1998; 105(1A):48S Blood specimen (specimen) 02/08/2013 2:15 AM EST 02/08/2013 2:27 AM EST Narrative Resulting Agency Comment Spec In Lab Chaz Babb MD CHEMISTRY ORDERABLES [facility]ONARD GORDONIUM * (ABNORMAL) Differential, Automated (02/07/2013 9:55 PM EST) Neutrophil % 80.9(H) 34.0 - 71.0 % CERNER MILLENNIUM Neutrophil Absolute 9.06(H) 1.50 - 6.30 x10(3)/mc L CERNER MILLENNIUM Lymph % 12.9(L) 19.0 - 53.0 % CERNER MILLENNIUM Lymphocytes Abs 1.4 1.0 - 3.6 x10(3)/mc L CERNER MILLENNIUM Monocyte % 5.4 4.0 - 13.0 % CERNER MILLENNIUM Monocyte Abs 0.6 0.2 - 1.0 x10(3)/mc L CERNER MILLENNIUM Eos % 0.1 0.0 - 7.0 % CERNER MILLENNIUM Eosinophils Abs 0.0 0.0 - 0.5 x10(3)/mc L CERNER MILLENNIUM Basophil % 0.1 0.0 - 2.0 % CERNER MILLENNIUM Baso Absolute 0.0 0.0 - 0.2 x10(3)/mc L CERNER MILLENNIUM Immature Gran % 0.60 0.00 - 0.66 % CERNER MILLENNIUM Comment: Immature granulocytes(IG's)percentage and absolute count will include metamyelocytes, myelocytes, and promyelocytes. Blood smears from CBCs yielding IG's will be scanned manually for concordance. If this scan disagrees with the automated IG or if promyelocytes are noted, a manual differential will be performed. Immature Gran Absolute 0.07(H) 0.00 - 0.05 x10(3)/mc L CERNER MILLENNIUM Blood specimen (specimen) 02/07/2013 9:55 PM EST 02/07/2013 10:01 PM EST Chaz Babb MD HEMATOLOGY ORDERABLE [facility] * (ABNORMAL) Cardiac Enzymes (02/07/2013 9:55 PM EST) Troponin-T 0.86(H) <=0.03 ng/mL CERNER MILLENNIUM Comment: result rechecked-NM 0.03 ng/mL: Represents the 99th percentile upper reference limit for normals. >0.03 ng/mL: Elevated cardiac troponin T level indicative of myocardial damage. Diagnosis of acute, evolving or recent [place] requires a typical rise and gradual fall of cTnT with at least ONE of the following: a) Ischemic symptoms b) Development of pathologic Q waves on the ECG c) ECG changes indicative of eschemia (S-T segment elevation/depression) d) Coronary artery intervention Serial bloods should be obtained for testing on admission, at 6 to 9 hrs and again at 12 to 24 hrs if earlier samples are negative and the clinical index of suspicion is high. Reference: [Myocardial infarction redefined? a consensus document of the Joint Society of Cardiology/[place] College of Cardiology Committee for the redefinition of myocardial infarction. ??Journal of the [place] College of Cardiology 2000; 36: 959-969] Creatine Kinase 576(H) 0 - 200 unit/L CERNER MILLENNIUM Comment:result rechecked-NM Blood specimen (specimen) 02/07/2013 9:55 PM EST 02/07/2013 10:01 PM EST Narrative Resulting Agency Comment Spec In Lab Chaz Babb MD CHEMISTRY ORDERABLES CERNER MILLENNIUM * (ABNORMAL) CBC (with Diff) (02/07/2013 9:55 PM EST) White Blood Cell 11.2(H) 4.0 - 10.0 x10(3)/mc L CERNER MILLENNIUM Red Blood Cell 4.23(L) 4.63 - 6.08 x10(6)/mc L CERNER MILLENNIUM Hemoglobin 12.6(L) 13.7 - 17.5 gm/dL CERNER MILLENNIUM Hematocrit 37.4(L) 40.0 - 51.0 % CERNER MILLENNIUM Mean Cell Volume 88.4 79.0 - 92.0 fL CERNER MILLENNIUM Mean Cell Hemoglobin 29.8 25.6 - 32.2 pg CERNER MILLENNIUM Mean Cell Hemoglobin Concentration 33.7 32.0 - 36.5 gm/dL CERNER MILLENNIUM Platelet 147 145 - 370 x10(3)/mc L CERNER MILLENNIUM RDW Standard Deviation 43.6 35.0 - 46.0 fL CERNER MILLENNIUM RDW coefficient of variation 13.7 10.9 - 14.4 % CERNER MILLENNIUM Mean Platelet Volume 11.5 9.0 - 12.0 fL CERNER MILLENNIUM Blood specimen (specimen) 02/07/2013 9:55 PM EST 02/07/2013 10:01 PM EST Narrative Resulting Agency Comment Spec In Lab Chaz Babb MD HEMATOLOGY ORDERABLE S [facility] ESPINOSA * EKG 12 Lead (02/07/2013 9:52 PM EST) Ventricular rate 61 BPM MUSE SYSTEM Atrial Rate 61 BPM MUSE SYSTEM P-R Interval 170 ms MUSE SYSTEM QRS Duration 134 ms MUSE SYSTEM Q-T Interval 444 ms MUSE SYSTEM QTC Calculated (Bezet) 446 ms MUSE SYSTEM Calculated P [place] 55 degrees MUSE SYSTEM Calculated R [place] -8 degrees MUSE SYSTEM Calculated T [place] 39 degrees MUSE SYSTEM INTERPRETATION Normal sinus rhythm Right bundle branch block Possible Lateral infarct (cited on or before 07-FEB-2013) Possible Inferior infarct , age undetermined When compared with ECG of 07-FEB-2013 16:25, (unconfirmed) No significant change was found Confirmed by MD Murray, Frederick ([id number]) on 02/08/2013 9:10:53 PM MUSE SYSTEM 02/07/2013 9:52 PM EST 02/08/2013 9:10 PM EST Chaz Babb MD ECG ORDERABLES MUSE SYSTEM * Cardiac Catheterization (02/07/2013 9:38 PM EST) Anatomical Region Laterality Modality Other Narrative 02/07/2013 9:39 PM EST Procedure Note Provider, Scanning - 02/07/2013 9:38 PM EST Jovan Reed II, MD CARDIAC CATH OR DERABLES * Cardiac Catheterization (02/07/2013 9:29 PM EST) Anatomical Region Laterality Modality Other Narrative 02/11/2013 8:39 AM EST Procedure Note Provider, Scanning - 02/08/2013 8:09 AM EST Transcriptions Provider, Scanning - 02/11/2013 8:39 AM EST Jovan Reed II, MD CARDIAC CATH OR DERABLES * Echocardiogram Transthoracic(Leb) (02/07/2013 7:57 PM EST) EF 65 HEARTLAB SYSTEM Anatomical Region Laterality Modality Other 02/08/2013 Narrative 02/08/2013 9:01 AM EST Procedure: ? Transthoracic Echocardiogram Patient: ? ERLINDA Smith ? (Age): 1945(68) Med Rec#: ?[id number] ? Sex: ?M ? Site Loc: ?[facility] ? Ht / Wt: ??173(cm)/97(kg) Pt. Loc: ? CCU ?BSA: ?2.16 Study Date: ?02/07/2013 ? Pt. Type: Inpatient Tape: ? Referring: Bobby Watts ([id number]) Manufacturing Recruiter: Jose Raul Bell Diagnosis:CPT Code(s): ??Echo Full (74660), ??Spectral Doppler (37862), Color Doppler (94649), Indication(s): ??Myocardial infarction Rhythm: Sinus HR ?BP ?122/66 ?? SUMMARY: 1. Technically limited study. 2. There is normal global left ventricular systolic function. ??Ejection fraction is estimated to be 65%. ??There is an area of probable hypokinesis at the mid to distal posterior wall. ??Contrast was not administered. ??This could be considered if clinically indicated. ?? 3. Other details below. ?? FINDINGS: Study Quality ?Technically limited Left Ventricle ?The left ventricular chamber size is normal. ?Left ventricular wall thickness is normal. ?There is normal global left ventricular systolic function. ??Ejection fraction is estimated to be 65%. ?There are left ventricular segmental wall motion abnormalities present, as shown in the diagram below. ?Doppler assessment is consistent with normal left sided filling pressure. ?The ??mid inferolateral and apical lateral wall segments are hypokinetic. Left Atrium ?The left atrium is mildly dilated. Right Ventricle ?Right ventricular chamber size, wall thickness, and systolic function are within normal limits. Right Atrium ?The right atrium is normal in size. Aortic Valve ?The aortic valve is tricuspid. ?The aortic valve leaflets are mildly thickened. ?There is no evidence of aortic valve stenosis. ?Mild (1+/4+) aortic valve regurgitation is present. Mitral Valve ?The mitral valve appears normal in structure and function. ?There is trace mitral regurgitation present. Tricuspid Valve ?The tricuspid valve appears normal in structure and function. ?There is trace tricuspid regurgitation present. Pulmonic Valve ?The pulmonic valve appears normal in structure and function. Pericardium ?The pericardium appears normal and there is no evidence of a pericardial effusion. Aorta ?There is mild dilatation of the aortic root. Pulmonary Artery ?The main pulmonary artery appears normal. Venous ?The inferior vena cava appears normal in size. ?There is a greater than 50% respiratory change in the inferior vena cava dimension. Misc ?Two-dimensional echo, spectral Doppler and color Doppler performed. Wall Motion: Segment Name ?Rest ? Base-Anteroseptal ?? Normal ? Base-Anterior ? Normal ? Base-Anterolateral ??Normal ? Base-Posterolateral Normal ? Base-Inferior ? Normal ? Base-Inferoseptal ?? Normal ? Mid-Anteroseptal ?Normal ? Mid-Anterior ?Normal ? Mid-Anterolateral ?? Normal ? Mid-Posterolateral ??Hypokinetic ? Mid-Inferior ?Normal ? Mid-Inferoseptal ?Normal ? Shel[place]-Septal ? Normal ? Shel[place]-Anterior ? Normal ? [place]-Lateral ?Hypokinetic ? [place]-Inferior ? Normal ? [place]-Tip ?Normal ? Chambers ?Value ?Units (Range) ? IVSd 2D ? 0.9 ?cm ? LVIDd 2D ?4.1 ?cm ? PWd 2D ?1.1 ?cm ? LVIDs 2D ?2.2 ?cm ? LVFS 2D ? 46 ? % ? LA area ? 21 ? cm2 (<21) ? RA area ? 15 ? cm2 (<18) ? Ao root ? 3.8 ?cm (2.1 to 3.6) ? This report has been electronically signed by: Johnny Silva MD ? 02/08/2013 08:59:15 Images reviewed and interpretation verified [facility] Cardiac Ultrasound Laboratory Procedure Note Johnny Silva MD - 02/08/2013 Procedure: Transthoracic Echocardiogram Patient: ERLINDA Smith DOB(Age): 1945(68) Med Rec#: [id number] Sex: M Site Loc: [facility] Ht / Wt: 173(cm)/97(kg) Pt. Loc: CCU BSA: 2.16 Study Date: 02/07/2013 Pt. Type: Inpatient Tape: Referring: Bobby Watts ([id number]) Manufacturing Recruiter: Jose Raul Bell Diagnosis:CPT Code(s): Echo Full (33625), Spectral Doppler (87170), Color Doppler (10711), Indication(s): Myocardial infarction Rhythm: Sinus HR BP 122/66 SUMMARY: 1. Technically limited study. 2. There is normal global left ventricular systolic function. Ejection fraction is estimated to be 65%. There is an area of probable hypokinesis at the mid to distal posterior wall. Contrast was not administered. This could be considered if clinically indicated. 3. Other details below. FINDINGS: Study Quality Technically limited Left Ventricle The left ventricular chamber size is normal. Left ventricular wall thickness is normal. There is normal global left ventricular systolic function. Ejection fraction is estimated to be 65%. There are left ventricular segmental wall motion abnormalities present, as shown in the diagram below. Doppler assessment is consistent with normal left sided filling pressure. The mid inferolateral and apical lateral wall segments are hypokinetic. Left Atrium The left atrium is mildly dilated. Right Ventricle Right ventricular chamber size, wall thickness, and systolic function are within normal limits. Right Atrium The right atrium is normal in size. Aortic Valve The aortic valve is tricuspid. The aortic valve leaflets are mildly thickened. There is no evidence of aortic valve stenosis. Mild (1+/4+) aortic valve regurgitation is present. Mitral Valve The mitral valve appears normal in structure and function. There is trace mitral regurgitation present. Tricuspid Valve The tricuspid valve appears normal in structure and function. There is trace tricuspid regurgitation present. Pulmonic Valve The pulmonic valve appears normal in structure and function. Pericardium The pericardium appears normal and there is no evidence of a pericardial effusion. Aorta There is mild dilatation of the aortic root. Pulmonary Artery The main pulmonary artery appears normal. Venous The inferior vena cava appears normal in size. There is a greater than 50% respiratory change in the inferior vena cava dimension. [facility] Two-dimensional echo, spectral Doppler and color Doppler performed. Wall Motion: Segment Name Rest Base-Anteroseptal Normal Base-Anterior Normal Base-Anterolateral Normal Base-Posterolateral Normal Base-Inferior Normal Base-Inferoseptal Normal Mid-Anteroseptal Normal Mid-Anterior Normal Mid-Anterolateral Normal Mid-Posterolateral Hypokinetic Mid-Inferior Normal Mid-Inferoseptal Normal [place]-Septal Normal Shel[place]-Anterior Normal [place]-Lateral Hypokinetic [place]-Inferior Normal [place]-Tip Normal Chambers Value Units (Range) IVSd 2D 0.9 cm LVIDd 2D 4.1 cm PWd 2D 1.1 cm LVIDs 2D 2.2 cm LVFS 2D 46 % LA area 21 cm2 (<21) RA area 15 cm2 (<18) Ao root 3.8 cm (2.1 to 3.6) This report has been electronically signed by: Johnny Silva MD 02/08/2013 08:59:15 Images reviewed and interpretation verified [facility] Cardiac Ultrasound Laboratory Andres Pryor MD ECHO ORDERABLES * EKG 12 Lead (02/07/2013 4:25 PM EST) Ventricular rate 80 BPM MUSE SYSTEM Atrial Rate 80 BPM MUSE SYSTEM P-R Interval 156 ms MUSE SYSTEM QRS Duration 136 ms MUSE SYSTEM Q-T Interval 414 ms MUSE SYSTEM QTC Calculated (Bezet) 477 ms MUSE SYSTEM Calculated P [place] 41 degrees MUSE SYSTEM Calculated R [place] 18 degrees MUSE SYSTEM Calculated T [place] 23 degrees MUSE SYSTEM INTERPRETATION Normal sinus rhythm Right bundle branch block Possible Inferior infarct , age undetermined Abnormal ECG No previous ECGs available Confirmed by MD Murray, Frederick ([id number]) on 02/08/2013 5:48:10 PM MUSE SYSTEM 02/07/2013 4:25 PM EST 02/08/2013 5:48 PM EST Chaz Babb MD ECG ORDERABLES MUSE SYSTEM * (ABNORMAL) Differential, Automated (02/07/2013 4:24 PM EST) Neutrophil % 85.6(H) 34.0 - 71.0 % CERNER MILLENNIUM Neutrophil Absolute 10.03(H) 1.50 - 6.30 x10(3)/mc L CERNER MILLENNIUM Lymph % 9.7(L) 19.0 - 53.0 % CERNER MILLENNIUM Lymphocytes Abs 1.1 1.0 - 3.6 x10(3)/mc L CERNER MILLENNIUM Monocyte % 3.8(L) 4.0 - 13.0 % CERNER MILLENNIUM Monocyte Abs 0.4 0.2 - 1.0 x10(3)/mc L CERNER MILLENNIUM Eos % 0.2 0.0 - 7.0 % CERNER MILLENNIUM Eosinophils Abs 0.0 0.0 - 0.5 x10(3)/mc L CERNER MILLENNIUM Basophil % 0.3 0.0 - 2.0 % CERNER MILLENNIUM Baso Absolute 0.0 0.0 - 0.2 x10(3)/mc L CERNER MILLENNIUM Immature Gran % 0.40 0.00 - 0.66 % CERNER MILLENNIUM Comment: Immature granulocytes(IG's)percentage and absolute count will include metamyelocytes, myelocytes, and promyelocytes. Blood smears from CBCs yielding IG's will be scanned manually for concordance. If this scan disagrees with the automated IG or if promyelocytes are noted, a manual differential will be performed. Immature Gran Absolute 0.05 0.00 - 0.05 x10(3)/mc L CERNER MILLENNIUM Blood specimen (specimen) 02/07/2013 4:24 PM EST 02/07/2013 4:29 PM EST Andres Pryor MD HEMATOLOGY ORDERABL ES LEONARD GORDONIUM * (ABNORMAL) Cardiac Enzymes (02/07/2013 4:24 PM EST) Troponin-T 0.11(H) <=0.03 ng/mL CERNER MILLENNIUM Comment: 0.03 ng/mL: Represents the 99th percentile upper reference limit for normals. >0.03 ng/mL: Elevated cardiac troponin T level indicative of myocardial damage. Diagnosis of acute, evolving or recent [place] requires a typical rise and gradual fall of cTnT with at least ONE of the following: a) Ischemic symptoms b) Development of pathologic Q waves on the ECG c) ECG changes indicative of eschemia (S-T segment elevation/depression) d) Coronary artery intervention Serial bloods should be obtained for testing on admission, at 6 to 9 hrs and again at 12 to 24 hrs if earlier samples are negative and the clinical index of suspicion is high. Reference: [Myocardial infarction redefined? a consensus document of the Joint Society of Cardiology/[place] College [employer]iology Committee for the redefinition of myocardial infarction. ??Journal of the [place] College of Cardiology 2000; 36: 959-969] Creatine Kinase 147 0 - 200 unit/L CERNER MILLENNIUM Blood specimen (specimen) 02/07/2013 4:24 PM EST 02/07/2013 4:29 PM EST Narrative Resulting Agency Comment Spec In Lab Chaz Babb MD CHEMISTRY ORDERABLES Performing Organization Address [facility] de Phone Number CERNER MILLENNIUM * Magnesium (02/07/2013 4:24 PM EST) Magnesium 0.81 0.69 - 1.07 mmol/L CERNER MILLENNIUM Blood specimen (specimen) 02/07/2013 4:24 PM EST 02/07/2013 4:29 PM EST Narrative Resulting Agency Comment Spec In Lab Chaz Babb MD CHEMISTRY ORDERABLES Performing Organization Address [facility] de Phone Number [facility] * (ABNORMAL) Basic Metabolic Panel (non-fasting) (02/07/2013 4:24 PM EST) Glucose 135 60 - 199 mg/dL CERNER MILLENNIUM Comment:Diabetes: >=200 mg/d L plus symptoms Blood Urea Nitrogen 20 10 - 20 mg/dL CERNER MILLENNIUM Creatinine 0.95 0.80 - 1.50 mg/dL CERNER MILLENNIUM Comment: Please note that the pediatric reference intervals supplied above were not validated at [facility]. Results from pediatric patients should be interpreted in conjunction to the patient's age, height and muscle mass. Sodium 142 135 - 145 mmol/L CERNER MILLENNIUM Potassium 4.3 3.5 - 5.0 mmol/L CERNER MILLENNIUM Comment: Please note: ??Patients with WBC >100,000 may have falsely elevated Potassium levels. ??For accurate Potassium quantification in these patients send serum separator tube (gold top) for subsequent determinations. ??Contact the Clinical Chemistry Laboratory if there are any questions. Chloride 108(H) 98 - 107 mmol/L CERNER MILLENNIUM Carbon Dioxide 23 22 - 31 mmol/L CERNER MILLENNIUM Anion Gap 11 5 - 15 mmol/L CERNER MILLENNIUM Calcium 8.5 8.5 - 10.5 mg/dL CERNER MILLENNIUM Est Glomerular Filtration Rate >60 >=60 CERNER MILLENNIUM Comment: This estimated GFR (eGFR) value was calculated using the MDRD equation which has been validated on patients between the ages of 18 and 70. The MDRD should not be used to assess kidney function in patients < 18 years of age or in patients with extremes of body mass, or in patients with acute kidney failure. This value should be multiplied by 1.2 for patients. For further information please copy and paste the following links into your internet browser. http://www.nkdep.nih.gov/lab-evaluation.shtml http://www.kidney.org/professionals/ Blood specimen (specimen) 02/07/2013 4:24 PM EST 02/07/2013 4:29 PM EST Narrative Resulting Agency Comment Spec In Lab Chaz Babb MD CHEMISTRY ORDERABLES [facility] * (ABNORMAL) CBC (with Diff) (02/07/2013 4:24 PM EST) White Blood Cell 11.7(H) 4.0 - 10.0 x10(3)/mc L CERNER MILLENNIUM Red Blood Cell 4.41(L) 4.63 - 6.08 x10(6)/mc L CERNER MILLENNIUM Hemoglobin 13.6(L) 13.7 - 17.5 gm/dL CERNER MILLENNIUM Hematocrit 39.7(L) 40.0 - 51.0 % CERNER MILLENNIUM Mean Cell Volume 90.0 79.0 - 92.0 fL CERNER MILLENNIUM Mean Cell Hemoglobin 30.8 25.6 - 32.2 pg CERNER MILLENNIUM Mean Cell Hemoglobin Concentration 34.3 32.0 - 36.5 gm/dL CERNER MILLENNIUM Platelet 147 145 - 370 x10(3)/mc L CERNER MILLENNIUM RDW Standard Deviation 44.8 35.0 - 46.0 fL CERNER MILLENNIUM RDW coefficient of variation 13.5 10.9 - 14.4 % CERNER MILLENNIUM Mean Platelet Volume 11.7 9.0 - 12.0 fL CERNER MILLENNIUM Blood specimen (specimen) 02/07/2013 4:24 PM EST 02/07/2013 4:29 PM EST Narrative Resulting Agency Comment Spec In Lab Chaz Babb MD HEMATOLOGY ORDERABLE S Performing Organization Address [facility] de Phone Number LEONARD GORDONIUM * Prothrombin Time (02/07/2013 4:24 PM EST) Prothrombin Time 13.3 12.0 - 15.0 sec CERNER MILLENNIUM Comment: [facility] Transfusion Committee Guidelines: INR less than 2.0, PTT less than OR equal to 43.5 seconds, or Fibrinogen greater than or equal to 100 mg/dl indicate adequate procoagulant activity for hemostasis in patients without underlying bleeding disorders. International Normalization Ratio 1.0 0.9 - 1.1 CERNER MILLENNIUM Blood specimen (specimen) 02/07/2013 4:24 PM EST 02/07/2013 4:29 PM EST Narrative Resulting Agency Comment Spec In Lab Andres Pryor MD HEMATOLOGY ORDERABL ES Performing Organization Address [facility] de Phone Number CERMARIA ANTONIA GORDONIUM * Hepatic Function Panel (02/07/2013 4:24 PM EST) Protein, Total 6.9 6.4 - 8.3 gm/dL CERNER MILLENNIUM Albumin 4.0 3.2 - 5.2 gm/dL CERNER MILLENNIUM Aspartate Aminotransferase 22 0 - 39 unit/L CERNER MILLENNIUM Alanine Aminotransferase 34 0 - 55 unit/L CERNER MILLENNIUM Alkaline Phosphatase 69 40 - 120 unit/L CERNER MILLENNIUM Bilirubin, Total 0.3 0.2 - 1.3 mg/dL CERNER MILLENNIUM Bilirubin, Direct 0.1 0.0 - 0.3 mg/dL CERNER MILLENNIUM Blood specimen (specimen) 02/07/2013 4:24 PM EST 02/07/2013 4:29 PM EST Narrative Resulting Agency Comment Spec In Lab Andres Pryor MD CHEMISTRY ORDERABLE S Performing Organization Address [facility] Co de Phone Number CERNER SUNILENNIUM * pro-Brain Natriuretic Peptide (02/07/2013 4:24 PM EST) NT-proBNP 104 <=125 pg/mL CERNER MILLENNIUM Blood specimen (specimen) 02/07/2013 4:24 PM EST 02/07/2013 4:29 PM EST Narrative Resulting Agency Comment Spec In Lab Andres Pryor MD CHEMISTRY ORDERABLE S Performing Organization Address [facility] de Phone Number CERMARIA ANTONIA BARBERENNIUM * TSH (02/07/2013 4:24 PM EST) Thyroid Stimulating Hormone 0.94 0.27 - 4.20 mcIU/mL CERNER MILLENNIUM Blood specimen (specimen) 02/07/2013 4:24 PM EST 02/07/2013 4:29 PM EST Narrative Resulting Agency Comment Spec In Lab Andres Pryor MD CHEMISTRY ORDERABLE S Performing Organization Address [facility] Co de Phone Number CERNER MILLENNIUM * (ABNORMAL) Phosphorus (02/07/2013 4:24 PM EST) Phosphorus 2.3(L) 2.5 - 4.5 mg/dL CERNER MILLENNIUM Blood specimen (specimen) 02/07/2013 4:24 PM EST 02/07/2013 4:29 PM EST Narrative Resulting Agency Comment Spec In Lab Andres Pryor MD CHEMISTRY ORDERABLE S Performing Organization Address [place]/[facility] Co de Phone Number CERMARIA ANTONIA BARBERENNIUM * POCT Glucose (02/07/2013 4:01 PM EST) Glucose, POC 133 60 - 199 mg/dL JANEMARIA ANTONIA ESPINOSA Comment: Supplemental ranges: <110 mg/dL before meals <200 mg/dL all other times of the day Blood specimen (specimen) 02/07/2013 4:01 PM EST 02/07/2013 4:01 PM EST Andres Pryor MD POINT OF CARE TEST ORDERABLES LEONARD ESPINOSA documented in this encounter Visit Diagnoses Diagnosis Chest pain Chest pain, unspecified 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 Acute myocardial infarction of other inferior wall, episode of care unspecified ST elevation myocardial infarction (STEMI), initial episode of care Acute myocardial infarction, unspecified site, initial episode of care documented in this encounter Administered Medications Inactive Administered Medications - up to 3 most recent administrations Medication Order MAR Action Action Date Dose Rate Site aspirin EC tablet 81 mg 81 mg, Oral, DAILY, First dose on Fri02/09/13 at 0900, Until Discontinued, Routine Given 02/09/2013 9:00 AM EST 81 mg aspirin tablet 325 mg 325 mg, Oral, DAILY, First dose on Fri02/08/13 at 0900, Until Discontinued, Routine Given 02/08/2013 8:08 AM EST 325 mg atorvastatin (LIPITOR) tablet 80 mg 80 mg, Oral, NIGHTLY, First dose on Fri02/07/13 at 2100, Until Discontinued, Routine Given 02/08/2013 8:30 PM EST 80 mg Given 02/07/2013 10:25 PM EST 80 mg clopidogrel (PLAVIX) tablet 300 mg 300 mg, Oral, DAILY, 1 dose, First dose (after last modification) on Fri02/07/13 at 1830, Please administer after revascularization., Routine Given by Other 02/07/2013 8:48 PM EST 300 mg clopidogrel (PLAVIX) tablet 75 mg 75 mg, Oral, DAILY, First dose on Fri02/08/13 at 0900, Until Discontinued, Routine Given 02/09/2013 9:00 AM EST 75 mg Given 02/08/2013 8:08 AM EST 75 mg diaZEPam (VALIUM) 5 mg tablet 1 dose, Starting on Fri02/07/13 at 1955, Until Fri02/07/13 at 2000, DAY: cabinet override diaZEPam (VALIUM) tablet 5 mg 5 mg, Oral, ONCE, 1 dose, On Fri02/07/13 at 2030, Routine Given 02/07/2013 8:00 PM EST 5 mg diphenhydrAMINE (BENADRYL) 25 mg capsule 1 dose, Starting on Fri02/07/13 at 1955, Until Fri02/07/13 at 1999, DAY: cabinet override diphenhydrAMINE (BENADRYL) capsule 25 mg 25 mg, Oral, ONCE, 1 dose, On Fri02/07/13 at 2030, Routine Given 02/07/2013 8:00 PM EST 25 mg heparin 25,000 units in dextrose 5% 500 mL infusion 350-7,000 Units/hr (rounded to 7-140 mL/hr), Intravenous, CONTINUOUS, Starting on Fri02/07/13 at 1715, Until Fri02/07/13 at 2147, Patient Weight 95-99 kg Initial dose - 1,000 units/hr = 20 mL/hr PTT less than 60 sec - increase by 400 units/hr = 8 mL/hr PTT 60-79 sec- increase by 200 units/hr = 4 mL/hr PTT 80-114 sec - no change PTT 115-129 sec - decrease by 100 units/hr = 2 mL/hr PTT 130-145 sec - stop infusion for 30 min then decrease by 200 units/hr = 4 mL/hr PTT greater than 145 sec - stop infusion for 60 min then decrease by 300 units/hr = 6 mL/hr PTT greater than 145 sec X 2 - call compressor house operator See Bolus dosing guidance for aPTT values less than 80 seconds under PRN medications, Routine Rate/Dose Verify 02/07/2013 8:00 PM EST 1,000 Units/hr 20 mL/hr Rate/Dose Verify 02/07/2013 4:00 PM EST 1,000 Units/hr 20 mL/hr magnesium oxide (MAG-OX) tablet 400 mg 400 mg, Oral, 2 TIMES DAILY, 2 doses, First dose on Fri02/09/13 at 0900, Last dose on Fri02/09/13 at 2100, Routine Given 02/09/2013 9:00 AM EST 400 mg metoprolol (LOPRESSOR) 5 mg/5 mL injection 1 dose, Starting on Fri02/07/13 at 1637, Until Fri02/07/13 at 1640, KATIE RADHA: cabinet override metoprolol (LOPRESSOR) injection 5 mg 5 mg, Intravenous, EVERY 5 MIN PRN, 1 dose, Starting on Fri02/07/13 at 1638, Until Fri02/07/13 at 1640, High Blood Pressure, Chest pain Given 02/07/2013 4:40 PM EST 5 mg metoprolol (LOPRESSOR) tablet 12.5 mg 12.5 mg, Oral, EVERY 6 HOURS SCHEDULED, First dose on Fri02/07/13 at 1800, Until Discontinued, Routine Given 02/09/2013 6:43 AM EST 12.5 mg Given 02/09/2013 12:30 AM EST 12.5 mg Given 02/08/2013 6:03 PM EST 12.5 mg nitroGLYcerin 50 mg in dextrose 5% 250 mL infusion 0-20 mcg/min (rounded to 0-6 mL/hr), Intravenous, CONTINUOUS, Starting on Fri02/07/13 at 1715, Until Fri02/07/13 at 2147, Maximum dose: 200 mcg/min, Routine Rate/Dose Verify 02/07/2013 8:00 PM EST 10 mcg/min 3 mL/hr Rate/Dose Verify 02/07/2013 4:00 PM EST 10 mcg/min 3 mL/hr pantoprazole (PROTONIX) tablet 40 mg 40 mg, Oral, DAILY, First dose on Fri02/08/13 at 0900, Until Discontinued, Restricted to patients on clopidpgrel (PLAVIX) who require a proton pump inhibitor Given 02/09/2013 9:00 AM EST 40 mg Given 02/08/2013 8:08 AM EST 40 mg potassium chloride (K-DUR/KLOR-CON) extended release tablet 40 mEq 40 mEq, Oral, 2 TIMES DAILY, 2 doses, First dose on Fri02/08/13 at 1000, Last dose on Fri02/08/13 at 2100, 20 mEq tablet may be dissolved in water for administration, Routine Given 02/08/2013 8:30 PM EST 40 mEq Given 02/08/2013 10:00 AM EST 40 mEq sodium chloride 0.9 % flush 5 mL 5 mL, Intravenous, EVERY 12 HOURS, First dose on Fri02/07/13 at 1645, Until Discontinued Given 02/08/2013 8:00 PM EST 5 mLs Given 02/08/2013 4:45 PM EST 5 mLs Given 02/08/2013 4:45 AM EST 5 mLs documented in this encounter Active and Recently Administered Medications Times are shown in EST. Scheduled Medication Order 02/07/2013 02/08/2013 02/09/2013 aspirin EC tablet 81 mg 81 mg, Oral, DAILY, First dose on Fri02/09/13 at 0900, Until Discontinued, Routine 0900 (Given - Provider: Hong Bojorquez, RN) aspirin tablet 325 mg (CANCELED) 325 mg, Oral, DAILY, First dose on Fri02/08/13 at 0900, Until Discontinued, Routine 08 (Given - Provider: Julita Baer RN) atorvastatin (LIPITOR) tablet 80 mg 80 mg, Oral, NIGHTLY, First dose on Fri02/07/13 at 2100, Until Discontinued, Routine 2224 (Given - Provider: Debbie Escobar RN) 2029 (Given - Provider: Trisha Greene RN) clopidogrel (PLAVIX) tablet 300 mg (CANCELED) 300 mg, Oral, DAILY, 1 dose, First dose (after last modification) on Fri02/07/13 at 1830, Please administer after revascularization., Routine 2047 (Given by Other - Provider: Debbie Escobar RN - Comment: in 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 laboratory technician) clopidogrel (PLAVIX) tablet 75 mg 75 mg, Oral, DAILY, First dose on Fri02/08/13 at 0900, Until Discontinued, Routine 08 (Given - Provider: Julita Baer RN) 0900 (Given - Provider: Hong Bojorquez, OREN) diaZEPam (VALIUM) tablet 5 mg (COMPLETED) 5 mg, Oral, ONCE, 1 dose, On Fri02/07/13 at 2029, Routine 1999 (Given - Provider: Debbie Escobar RN) diphenhydrAMINE (BENADRYL) capsule 25 mg (COMPLETED) 25 mg, Oral, ONCE, 1 dose, On Fri02/07/13 at 2029, Routine 1999 (Given - Provider: Debbie Escobar RN) magnesium oxide (MAG-OX) tablet 400 mg (CANCELED) 400 mg, Oral, 2 TIMES DAILY, 2 doses, First dose on Fri02/09/13 at 0900, Last dose on Fri02/09/13 at 2100, Routine 0900 (Given - Provider: Hong Bojorquez, RN) metoprolol (LOPRESSOR) tablet 12.5 mg (CANCELED) 12.5 mg, Oral, EVERY 6 HOURS SCHEDULED, First dose on Fri02/07/13 at 1800, Until Discontinued, Routine 1725 (Given - Provider: Katie Layton, RN) 0200 (Given - Provider: Debbie Escobar RN)0808 (Given - Provider: Julita Baer RN)1200 (Given - Provider: Ya Kelly RN)1803 (Given - Provider: Ya Kelly RN) 0030 (Given - Provider: Trisha Greene, RN)0643 (Given - Provider: Trisha Greene, OREN)1200 (Due) pantoprazole (PROTONIX) tablet 40 mg 40 mg, Oral, DAILY, First dose on Fri02/08/13 at 0900, Until Discontinued, Restricted to patients on clopidpgrel (PLAVIX) who require a proton pump inhibitor 0808 (Given - Provider: Julita Baer RN) 0900 (Given - Provider: Hong Bojorquez, OREN) potassium chloride (K-DUR/KLOR-CON) extended release tablet 40 mEq (COMPLETED) 40 mEq, Oral, 2 TIMES DAILY, 2 doses, First dose on Fri02/08/13 at 1000, Last dose on Fri02/08/13 at 2100, 20 mEq tablet may be dissolved in water for administration, Routine 1000 (Given - Provider: Julita Baer RN)2030 (Given - Provider: Trisha Greene, OREN) sodium chloride 0.9 % flush 5 mL (CANCELED) 5 mL, Intravenous, EVERY 12 HOURS, First dose on Fri02/07/13 at 1645, Until Discontinued 1645 (Given - Provider: Katie Layton, OREN) 0445 (Given - Provider: Debbie Escobar RN)1645 (Given - Provider: Ya Kelly RN)2000 (Given - Provider: Trisha Greene, OREN) Continuous Medication Order 02/07/2013 02/08/2013 02/09/2013 heparin 25,000 units in dextrose 5% 500 mL infusion (CANCELED) 350-7,000 Units/hr (rounded to 7-140 mL/hr), Intravenous, CONTINUOUS, Starting on 02/07/13 at 1715, Until 02/07/13 at 2146, Patient Weight 95-99 kg Initial dose - 1,000 units/hr = 20 mL/hr PTT less than 60 sec - increase by 400 units/hr = 8 mL/hr PTT 60-79 sec- increase by 200 units/hr = 4 mL/hr PTT 80-114 sec - no change PTT 115-129 sec - decrease by 100 units/hr = 2 mL/hr PTT 130-145 sec - stop infusion for 30 min then decrease by 200 units/hr = 4 mL/hr PTT greater than 145 sec - stop infusion for 60 min then decrease by 300 units/hr = 6 mL/hr PTT greater than 145 sec X 2 - call compressor house operator See Bolus dosing guidance for aPTT values less than 80 seconds under PRN medications, Routine 1600 (Rate/Dose Verify - Provider: Katie Layton RN - Comment: Pt arrived via ambulance with heparin gtt @ 1000units/hr)1999 (Rate/Dose Verify - Provider: Debbie Escobar RN)2014 (Stopped - Provider: Debbie Escobar RN) nitroGLYcerin 50 mg in dextrose 5% 250 mL infusion (CANCELED) 0-20 mcg/min (rounded to 0-6 mL/hr), Intravenous, CONTINUOUS, Starting on Fri02/07/13 at 1715, Until Fri02/07/13 at 2146, Maximum dose: 200 mcg/min, Routine 1600 (Rate/Dose Verify - Provider: Katie Layton RN - Comment: Pt arrived on NTG gtt at 10mcq/min)1999 (Rate/Dose Verify - Provider: Debbie Escobar RN) PRN Medication Order 02/07/2013 02/08/2013 02/09/2013 bivalirudin (ANGIOMAX) 250 mg in sodium chloride 0.9% 50 mL infusion (CANCELED) 250 mg, CONTINUOUS PRN, Starting on 02/07/13 at 2046, Until Fri02/07/13 at 2146, Intra-Operative (Intra-Procedure) 2046 (New Bag - Provider: Cristian Lara RN)2111 (Stopped - Provider: Cristian Lara RN) bivalirudin (ANGIOMAX) injection (CANCELED) ONCE PRN, Starting on 02/07/13 at 2044, Until Fri02/07/13 at 2146, Intra-Operative (Intra-Procedure), Routine 2044 (Given - Provider: Cristian Lara RN) clopidogrel (PLAVIX) tablet (CANCELED) ONCE PRN, Starting on 02/07/13 at 2046, Until 02/07/13 at 214, Intra-Operative (Intra-Procedure), Routine 2046 (Given - Provider: Cristian Lara RN) fentaNYL 50mcg/mL injection (CANCELED) ONCE PRN, Starting on 02/07/13 at 2034, Until 02/07/13 at 2146, Pain, Intra-Operative (Intra-Procedure), Routine 2034 (Given - Provider: Cristian Lara RN) metoprolol (LOPRESSOR) injection 5 mg (COMPLETED) 5 mg, Intravenous, EVERY 5 MIN PRN, 1 dose, Starting on Fri02/07/13 at 1638, Until Fri02/07/13 at 1640, High Blood Pressure, Chest pain 1640 (Given - Provider: Katie Layton RN) midazolam (VERSED) injection (CANCELED) ONCE PRN, Starting on 02/07/13 at 2034, Until Fri02/07/13 at 2146, Sleep, Intra-Operative (Intra-Procedure), Routine 2034 (Given - Provider: Cristian Lara RN) niCARdipine (CARDENE) in sodium chloride 0.9% injection (CANCELED) ONCE PRN, Starting on Fri02/07/13 at 210, Until Fri02/07/13 at 214, Intra-Operative (Intra-Procedure), Routine 2108 (Given - Provider: Jovan Reed II) nitroGLYcerin (NITROSTAT) SL tablet 0.4 mg 0.4 mg, Sublingual, EVERY 5 MIN PRN, Starting on Fri02/07/13 at 1617, Until Fri02/09/13 at 1611, Chest pain, May repeat every 5 minutes for a total of three doses. Notify provider if chest pain not relieved with nitroglycerin. Do not administer nitroglycerin if the patinet has received or taken phosphodiesterase (PDE-5) inhibitors such as sildenafil, tadalafil or vardenafil within the last 24 to 72 hours., Routine nitroGLYCerin 100 mcg/mL intracoronary dilution (CANCELED) ONCE PRN, Starting on 02/07/13 at 2107, Until 02/07/13 at 2147, Intra-Operative (Intra-Procedure), Routine 2106 (Given - Provider: Jovan Reed II) documented in this encounter Care Teams Label Machine Operator Relationship Specialty Start Date End Date Trell Cade MD [address] [place] [address] PCP - General 02/07/13 08/23/19 documented as of this encounter
--- OUTSIDE RECORDS SUMMARY | 2024-02-05 09:30 | XMS_ITS | Encounter Summary ---
Author Organization [facility] Address [facility] [place] [address] Care Team Providers Care Destaticizer Feeder Name Role Phone Trell Cade MD Primary Care Provider [phone] Encounter Details Date Type Department Care Team (Late st Contact Info) Description 02/07/2013 1:35 PM EST - 02/07/2013 2:40 PM [place] [id number] Jovan Reed II, MD [facility] [address] [place] [address] CARDIAC CATHETERIZATION Social History Tobacco Use Types Packs/Day Years Used Date Smoking Tobacco: Former Alcohol Use Standard Drinks/Week Comments No 0 (1 standard drink = 0.6 oz pur e alcohol) Sex and Gender Information Value Date Recorded Sex Assigned at Not on file Gender Identity Not on file Sexual Orientation Not on file documented as of this encounter Discharge Instructions * Patient Instructions* [...] fruits and vegatables Your Inpatient Doctor(s) at [facility]: (most recent inpatient cardiology team) Dr. Babb, Dr. Jackson, Dr. Carvalho, Dr. Glaan Call your doctor if: Chest pain, shortness of breath, pain or swelling in legs occurs. If you have non-emergent questions between now and the time of your follow up appointments: During 8am-5pm Friday through Friday call [phone] to speak with a nurse in the cardiology clinic All other times call [phone] and ask to speak to the international logistics coordinator tobacco prevention health educator. Return to work: One week Driving: No driving for 48 hours after 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. Follow up Appointments: PCP: We have scheduled you to be seen by Dr. Cade on 02/23/13 at 2:30 PM Drapery Examiner: We have scheduled you to be seen by Dr. Babb at [facility] on 03/23/2013 at9:20 AM Specific instructions related [...] You need to take this until your environmental science technician tells you to stop taking it. Typically [...] also contact your primary care doctor or environmental science technician office. 2) Life style modifications: Eating a nutritious diet that includes lots of fruits and vegetables and low amounts of saturated fat (as found in dairy and meat products), and maintaining a healthy amount of physical activity are important, as well as avoiding smoking. We recommend cardiac rehab as described above. 3) Medical follow-up Close follow-up with your primary care and environmental science technician are of utmost importance as well. * Attachments The following attachments cannot be sent through Care Everywhere. * HEART ATTACK: AFTER YOUR VISIT (TUNISIAN) * REDUCING HEART ATTACK RISK WITH DAILY MEDICINE: AFTER YOUR VISIT (TUNISIAN) * PERCUTANEOUS CORONARY INTERVENTION: WHAT TO EXPECT AT HOME (TUNISIAN) documented in this encounter Medications at Time [...] 11 02/09/2013 06/22/2013 Mometasone (NASONEX) 50 mcg/Actuation Gerty 12/11/2005 6 documented as of this encounter [...] complete assessment and plan Genie Galan MD #[id number] Cardiology Staff Addendum I have discussed, reviewed [...] 0.3 BILIDIR 0.1 Recent Labs Basename 02/08/13 0215 02/07/13 1624 CALCIUM 8.5 8.5 MAGNESIUM 0.89 0.81 [...] physical, assessment or plan of care. * Genie Galan MD - 02/08/2013 6:30 AM EST Post [...] management plan. Genie Galan PGY-1 #3011 * Ted Layton RN - 02/07/2013 4:47 PM EST 1600 - 1700: Pt arrived via ambulance directly into [facility]. Vital signs stable. Pt denies any chestpain [...] obese gentleman & ex-smoker who presented to [facility] earlier this afternoon with chest pain and transferred to [facility] for STEMI-alert. He woke up early this morning and shoveled snow around his house first and then proceeded later this afternoon around 11AM to shovel snow in front of his [employer] shop. He was using an electronic dean of instruction and after a few rounds in front [...] history of coronary disease, never seen a environmental science technician or had a stress test. When his pain didn't alleviate despite rest & a diet coke he called his who immediately drove him to [facility] ED. EKG revealed 2mm ST-elevations in inferior leads and a STEMI-alert was activatedwith plans for [facility] transfer within minutes. 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 Plan for revascularization as [...] - Code: FULL Jana Stern, PGY-2 Pager: [phone] Emergency Management Program Specialist Addendum @ [phone], 02/07/13: 68 yo obese former smoker who presented to [facility] this afternoon with substernal, exertional CP aftershoveling snow. Symptoms began at approximately 10am and he presented to [facility] by 1pm, where he was found to have 2mm LUCAS's inferiorly and continued chest pain. He received full dose aspirin there, along with plavix 300 mg PO and full dose TNK with resolution of his pain. By the time he arrived at [facility] his ST segments had improved to sub-1mm elevations and he remained chest pain free. In the labeling associate he was found to have a long segmental ostial OM2 95% lesion with mild difuse disease of the LCx,LAD and RCA. He received a 32 mm x 3 mm promus HUMBLE to the OM2. His LVEDP was 34, so he received 20 mg of lasix IV. Remained HD intact and chest pain free after the case, and is being transported [facility] now. Admit to [facility] for overnight monitoring. DC Heparin gtt Plavix 75 daily ASA 81 daily High dose statin - lipitor 80 mg QHS Post-labeling associate ECG for baseline, and continue to follow [...] 02/10/2013 11:47 AM ESTAssociated Order(s): SCAN DOC: JAVA ORACLE DEVELOPER * Provider, Scanning - 02/10/2013 11:47 AM [...] in 1-2 weeks and cardiology f/u at [facility] in ~1 month Discharge Diagnoses (Hospital Problems) [...] obese gentleman & ex-smoker who presented to [facility] earlier this afternoon with chest pain and transferred to [facility] for STEMI-alert. He woke up early this morning and shoveled snow around his house first and then proceeded later this afternoon around 11AM to shovel snow in front of his [employer] shop. He was using an electronic dean of instruction and after a few rounds in front [...] history of coronary disease, never seen a environmental science technician or had a stress test. When his pain didn't alleviate despite rest & a diet coke he called his who immediately drove him to [facility] ED. EKG revealed 2mm ST-elevations in inferior leads and a STEMI-alert was activatedwith plans for [facility] transfer within minutes. He was hypertensive (BP 167/87), HR 74, RR 22, O2 97% on RA and AA&Ox3. He was given Aspirin 650mg x1, Heparin 4000U bolus & infusion, Plavix 300mg x1, TNK 50mg IV, Lopressor 5mg IV x3, Morphine 10mg x1 and started on a Nitro- infusion. He arrivedto the CV (cath-lab was occupied temporarily) and was chest pain free. Hospital Course: STEMI: The patient was taken to the labeling associate, where he was found to have CAD [...] Lab Data: Labs: Recent Labs Basename 02/09/13 0332 02/08/13 02102/07/13 2155 WBC 10.6* 10.7* 11.2* HGB 13.0* 12.8* 12.6* HCT 38.9* 38.6* 37.4* PLATELET 132* 152 147 Recent Labs Basename 02/07/13 1624 INR 1.0 Recent Labs Basename 02/09/13 0332 02/08/13 0845 02/08/13 0215 02/07/13 1624 NA 138 -- 140 142 K 4.2 3.6 Hemolyzed -- CL 104 -- 106 108* CO2 23 -- 21* 23 BUN 17 -- 17 20 CREATININE 0.92 -- 0.98 0.95 Recent Labs Basename 02/07/13 1624 AST 22 ALT 34 ALKPHOS 69 BILITOT 0.3 BILIDIR 0.1 Recent Labs Basename 02/09/13 0332 02/08/13 0215 02/07/13 1624 CALCIUM 9.0 8.5 8.5 MAGNESIUM 0.82 0.89 0.81 PHOS -- -- 2.3* Recent Labs Basename 02/09/13 0332 02/08/13 0845 02/08/13 0215 CK 341* 899* 703* TROPONINT 1.48* 2.37* 1.30* Recent Labs Basename 02/07/13 1624 TSH 0.94 Recent Labs Basename 02/08/13 0215 HA1C 5.3 Lab Results Component Value Date [...] medications, unchanged Details Mometasone (NASONEX) 50 mcg/Actuation Gerty Nasal cetirizine-psuedoephedrine (ZYRTEC-D) 5-120 mg per tablet [...] fruits and vegatables Your Inpatient Doctor(s) at [facility]: (most recent inpatient cardiology team) Dr. Babb, Dr. Jackson, Dr. Carvalho, Dr. Galan Call your doctor if: Chest pain, shortness of breath, pain or swelling in legs occurs. If you have non-emergent questions between now and the time of your follow up appointments: During 8am-5pm Friday through Friday call [phone] to speak with a nurse in the cardiology clinic All other times call [phone] and ask to speak to the international logistics coordinator tobacco prevention health educator. Return to work: One week Driving: No driving for 48 hours after 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. Follow up Appointments: PCP: We have scheduled you to be seen by Dr. Cade on 02/23/13 at 2:30 PM Drapery Examiner: We have scheduled you to be seen by Dr. Babb at [facility] on 03/23/2013 at9:20 AM Specific instructions related [...] You need to take this until your environmental science technician tells you to stop taking it. Typically [...] also contact your primary care doctor or environmental science technician office. 2) Life style modifications: Eating a nutritious diet that includes lots of fruits and vegetables and low amounts of saturated fat (as found in dairy and meat products), and maintaining a healthy amount of physical activity are important, as well as avoiding smoking. We recommend cardiac rehab as described above. 3) Medical follow-up Close follow-up with your primary care and environmental science technician are of utmost importance as well. General Instructions None Future Appointments and Orders Future Appointments: Provider: Department: Dept Phone: Center: 03/23/2013 9:20 AM Chaz Babb MD Cardiology [phone] [facility] Joint Appt Nurse One Cardiology OREN Henley 4A [phone] [facility] Future Orders Please Complete By Expires Referral to Cardiac Rehab [[id number] Custom] Process Instructions: If no progress note charted, please enter Clinical details in comments. Scheduling Instructions: Comments: Cardiac rehab at [facility] in [place], [place] Questions: Responses: Reason for referral STEMI Discharge References/Attachments: Discharge References/Attachments HEART ATTACK: AFTER YOUR VISIT (TUNISIAN) REDUCING HEART ATTACK RISK WITH DAILY MEDICINE: AFTER YOUR VISIT (TUNISIAN) PERCUTANEOUS CORONARY INTERVENTION: WHAT TO EXPECT AT HOME (TUNISIAN) Inpatient Provider Contact Information: [facility] [phone] Electronically Signed By: BOBBY CARVALHO MD 02/09/2013 * Consult Note - Jalyn Hugo RN - 02/09/2013 11:17 AM EST Patient ambulating around unit ad maicol. Feeling great and planning for discharge later today. We did a flight of stairs. VSS. No complaints. Plan as per yesterday's evaluation. See my note for details. Cardiac rehab at [facility]. * Miscellaneous - Provider, Scanning - 02/08/2013 [...] is always on the go with his [employer] store. His tells him he should slowdown. Given parameters for home exercise. He recently had evaluation with his PCP and had lipids checked. Lipids values and treatment goals reviewed. Phase II Referral: [facility] Activity Summary: By discharge, patient will be able to perform self care, walk 5-7 minutes and go up and down stairs without signs or symptoms of ischemia. Date /Initials Baseline Response Symptoms/Comments Activity HR 62 84 Patient walked at [...] Procedure Name Priority Date/Time Associated Diagnosis Comments JAVA ORACLE DEVELOPER SCAN 02/10/2013 11:47 AM EST CARDIAC CATH SCAN 02/10/2013 11: 47 AM EST DIFFERENTIAL, AUTOMATED Routine 02/10/20 3:32 AM EST CARDIAC ENZYMES ([facility]/CGP) Routine 02/09/2013 3:32 AM EST CBC (WITH DIFF) Routine 02/09/2013 3:32 AM EST MAGNESIUM Routine 02/09/2013 3:32 AM EST BASIC METABOLIC PANEL Routine 02/09/2013 3:32 AM EST CARDIAC ENZYMES ([facility]/CGP) Routine 02/08/2013 8:45 AM EST POTASSIUM Routine 02/08/2013 8:45 AM EST EKG 12-LEAD Routine 02/08/2013 7: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 BMP W/FASTING GLUCOSE Routine 02/08/2013 2:15 AM EST DIFFERENTIAL, AUTOMATED Routine 02/09/20 13 2:15 AM EST CARDIAC ENZYMES ([facility]/CGP) Routine 02/08/2013 2:15 AM EST CBC (WITH DIFF) Routine 02/08/2013 2:15 AM EST MAGNESIUM Routine 02/08/2013 2:15 AM EST HEMOGLOBIN A1C Routine 02/08/2013 2:15 AM EST LIPID PANEL (REFLEX DIRECT LDL) Routine 02/08/2013 2:15 AM EST DIFFERENTIAL, AUTOMATED Routine 02/08/20 13 9:55 PM EST CARDIAC ENZYMES ([facility]/CG[facility]) STAT 02/07/2013 9:55 PM EST CBC (WITH DIFF) Routine 02/07/2013 9:55 PM EST EKG 12-LEAD Routine 02/07/2013 9: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 CARDIAC CATHETERIZATION Routine 02/08/20 13 9:29 PM EST ECHOCARDIOGRAM TRANSTHORACIC Routine 02/07/2013 7:57 PM EST Chest pain EKG 12-LEAD STAT 02/07/2013 4:25 PM EST Chest pain DIFFERENTIAL, AUTOMATED Routine 02/08/20 13 4:24 PM EST CARDIAC ENZYMES ([facility]/CGP) Routine 02/07/2013 4:24 PM EST PROTHROMBIN TIME [...] SCAN EXT O RDR/RSLT * SCAN DOC: JAVA ORACLE DEVELOPER (02/10/2013 11:47 AM EST) Anatomical Region Laterality Modality Other Narrative 02/10/2013 11:55 AM EST Procedure Note Provider, Scanning - 02/10/2013 11:47 AM EST Scanning Provider MEDIA MGR SCAN EXT O RDR/RSLT * (ABNORMAL) Cardiac Enzymes (02/09/2013 3:32 AM EST) Troponin-T 1.48(H) <=0.03 ng/mL [facility] Comment: 0.03 ng/mL: Represents the 99th percentile upper reference limit for normals. >0.03 ng/mL: Elevated cardiac troponin T level indicative of myocardial damage. Diagnosis of acute, evolving or recent HI requires a typical rise and gradual fall [...] consensus document of the Joint Society of Cardiology/[place] College of Cardiology Committee for the redefinition of myocardial infarction. ??Journal of the [place] College of Cardiology 2000; 36: 959-969] Creatine Kinase 341(H) 0 - 200 unit/L CERNER MILLENNIUM Blood specimen (specimen) 02/09/2013 3:32 [...] MD HEMATOLOGY ORDERABLE S Performing Organization Address [facility] Co de Phone Number CERMARIA ANTONIA MILLENNIUM * (ABNORMAL) CBC (with Diff) (02/09/2013 [...] MD HEMATOLOGY ORDERABLE S Performing Organization Address City/[facility]/ZIP Co de Phone Number CERMARIA ANTONIA MILLENNIUM * Magnesium (02/09/2013 3:32 AM EST) Magnesium 0.82 0.69 - 1.07 mmol/L CERNER MILLENNIUM Blood specimen (specimen) 02/09/2013 3:32 AM EST 02/09/2013 3:37 AM EST Narrative Resulting Agency Comment Spec In Lab Chaz Babb MD CHEMISTRY ORDERABLES LEONARD ESPINOSA * Basic Metabolic Panel (non-fasting) (02/09/2013 3:32 AM EST) Glucose 97 60 - 199 mg/dL CERNER MILLENNIUM Comment:Diabetes: >=200 mg/d L plus symptoms Blood Urea Nitrogen 17 10 - 20 mg/dL CERNER MILLENNIUM Creatinine 0.92 0.80 - 1.50 mg/dL CERNER MILLENNIUM Comment: Please note that the pediatric reference intervals supplied above were not validated at [facility]. Results from pediatric patients should be interpreted [...] Babb MD CHEMISTRY ORDERABLES Performing Organization Address [facility] de Phone Number [facility] * Potassium (02/08/2013 8:45 AM EST) Pathologist [facility] [place] Potassium 3.6 3.5 - 5.0 mmol/L [facility] Comment: Please note: ??Patients with WBC >100,000 [...] Babb MD CHEMISTRY ORDERABLES Performing Organization Address [facility] de Phone Number [facility] * (ABNORMAL) Cardiac Enzymes (02/08/2013 8:45 AM EST) Pathologist [facility] [place] Troponin-T 2.37(H) <=0.03 ng/mL [facility] Comment: result rechecked-ga 0.03 ng/mL: Represents the 99th percentile upper reference limit for normals. >0.03 ng/mL: Elevated cardiac troponin T level indicative of myocardial damage. Diagnosis of acute, evolving or recent HI requires a typical rise and gradual fall [...] consensus document of the Joint Society of Cardiology/[place] College of Cardiology Committee for the redefinition of myocardial infarction. ??Journal of the [place] College of Cardiology 2000; 36: 959-969] Creatine Kinase 899(H) 0 - 200 unit/L CERNER MILLENNIUM Blood specimen (specimen) 02/08/2013 8:45 AM EST 02/08/2013 8:56 AM EST Narrative Resulting Agency Comment Spec In Lab Chaz Babb MD CHEMISTRY ORDERABLES Performing Organization Address City/[facility] Co de Phone Number CERNER SUNILENNIUM * EKG 12 Lead (02/08/2013 7:25 AM EST) Ventricular rate 64 BPM MUSE SYSTEM Atrial Rate 64 BPM MUSE SYSTEM P-R Interval 164 ms MUSE SYSTEM QRS Duration 144 ms MUSE SYSTEM Q-T Interval 422 ms MUSE SYSTEM QTC Calculated (Bezet) 435 ms MUSE SYSTEM Calculated P [place] 58 degrees MUSE SYSTEM Calculated R [place] -33 degrees MUSE SYSTEM Calculated T [place] -2 degrees MUSE SYSTEM INTERPRETATION Normal sinus [...] ORDERABLES MUSE SYSTEM * (ABNORMAL) Differential, Automated (02/08/2013 [...] MD HEMATOLOGY ORDERABLE S Performing Organization Address [facility] de Phone Number LEONARD GORDONIUM * Magnesium (02/08/2013 2:15 AM EST) Magnesium 0.89 0.69 - 1.07 mmol/L CERMARIA ANTONIA MILLENNIUM Blood specimen (specimen) 02/08/2013 2:15 AM EST 02/08/2013 2:27 AM EST Narrative Resulting Agency Comment Spec In Lab Chaz Babb MD CHEMISTRY ORDERABLES Performing Organization Address City/[facility] Co de Phone Number LEONARD GORDONIUM * (ABNORMAL) CBC (with Diff) (02/08/2013 2:15 [...] Lab Chaz Babb MD HEMATOLOGY ORDERABLE S [facility] * (ABNORMAL) BMP w/fasting Glucose (02/08/2013 2:15 AM EST) Glucose Fasting 116(H) 65 - 99 mg/dL [facility] BARBERENNI[facility] Comment: ?Fasting* Glucose Interpretive Criteria Normal ?65-99 [...] of Diabetes Mellitus, Position Statement from the [place] Diabetes Association. ??Diabetes Care, Volume 33, Supplement 1, Feb 2009 Blood Urea Nitrogen 17 10 - 20 mg/dL CERNER MILLENNIUM Creatinine 0.98 0.80 - 1.50 mg/dL CERNER MILLENNIUM Comment: Please note that the pediatric reference intervals supplied above were not validated at [facility]. Results from pediatric patients should be interpreted in conjunction to the patient's age, height and muscle mass. Sodium 140 135 - 145 mmol/L CERNER MILLENNIUM Potassium Hemolyzed 3.5 - 5.0 mmol/L CERNER MILLENNIUM Comment: Called by: hari, Read back by: angus mchugh, Date/Time:02/08/13 03:05. [...] Babb MD CHEMISTRY ORDERABLES Performing Organization Address City/[facility] de Phone Number LEONARD ESPINOSA * (ABNORMAL) Cardiac Enzymes (02/08/2013 2:15 AM EST) Troponin-T 1.30(H) <=0.03 ng/mL [facility] Comment: 0.03 ng/mL: Represents the 99th percentile upper reference limit for normals. >0.03 ng/mL: Elevated cardiac troponin T level indicative of myocardial damage. Diagnosis of acute, evolving or recent HI requires a typical rise and gradual fall [...] consensus document of the Joint Society of Cardiology/[place] College of Cardiology Committee for the redefinition of myocardial infarction. ??Journal of the [place] College of Cardiology 2000; 36: 959-969] Creatine Kinase 703(H) 0 - 200 unit/L [facility] reQwip Blood specimen (specimen) 02/08/2013 2:15 AM EST 02/08/2013 2:27 AM EST Narrative Resulting Agency Comment Spec In Lab Chaz Babb MD CHEMISTRY ORDERABLES Performing Organization Address [facility] de Phone Number [facility] ESPINOSA * Hemoglobin A1c (02/08/2013 2:15 AM EST) Pathologist [facility] [place] Hemoglobin A1c 5.3 4.3 - 6.1 % [facility] Comment: The [place] Diabetes Association (ADA) has stated that HbA1c [...] 2013:36;suppl 1:S11-S66. Estimated Average Glucose 105 mg/dL [facility] Comment: eAG equivalents for HbA1c percentages: HbA1c(%) [...] into estimated average glucose values. ??Diabetes Care 2008:31(8):1541-9905. Blood specimen (specimen) 02/08/2013 2:15 AM EST 02/08/2013 2:27 AM EST Narrative Resulting Agency Comment Spec In Lab Chaz Babb MD CHEMISTRY ORDERABLES [facility] * (ABNORMAL) Lipid panel (fasting) (02/08/2013 2:15 AM EST) Cholesterol, Total 180 <=199 mg/dL CERNER MILLENNIUM Comment: Recommendations of the NCEP Adult Treatment Panel for the following risk cutoff thresholds for the [place] population: Desirable: <200 mg/dL Borderline High: 200-239 mg/dL High: > or = 240 mg/dL Triglyceride 231(H) <=149 mg/dL CERNER MILLENNIUM Comment: Reference Range: Normal triglycerides: ??<150 mg/dL Borderline high: ??150-199 mg/dL High: ??200-499 mg/dL Very high: ??>yz=770 mg/dL LEOBARDO 2001; 285(19):9550-3088 HDL Cholesterol 46 >=40 mg/dL CER NER MILLENNIUM Comment: Reference range: ??Low HDL: ?? < 40 mg/dL ??Normal: ?40-60 mg/dL ??Desirable: > 60 mg/dL LEOBARDO 2001; 285(19):3793-5099 LDL Cholesterol 88 <=99 mg/dL CER NER MILLENNIUM Comment: Reference range: ?? Optimal: ?<100 mg/dL ?? Near Optimal/Above Optimal: ?? 100-129 mg/dL ?? Borderline high: ?130-159 mg/dL ?? High: ? 160-189 mg/dL ?? Very high: ?>gp=532 mg/dL LEOBARDO 2001: 285(19):1746-5672 Cholesterol/HDL Ratio 3.9 ratio CERNER MILLENNIUM Comment: A Cholesterol to HDL ratio below 4:1 is desirable. ??Studies suggest that increased CAD risk occurs at ratios above 5 for females and above 6 for men. ? [place] Heart Association ??(http://www.americanheart.org) ? Adore Int Med, 1994; 121:641 ? AM J Med, 1998; 105(1A):48S Blood specimen (specimen) 02/08/2013 2:15 AM EST 02/08/2013 2:27 AM EST Narrative Resulting Agency Comment Spec In Lab Chaz Babb MD CHEMISTRY ORDERABLES CERNER MILLENNIUM * (ABNORMAL) Differential, Automated (02/07/2013 9:55 PM [...] EST Chaz Babb MD HEMATOLOGY ORDERABLE S LEONARD GORDONIUM * (ABNORMAL) Cardiac Enzymes (02/07/2013 9:55 PM EST) Pathologist [facility] [place] Troponin-T 0.86(H) <=0.03 ng/mL CERNER MILLENNIUM Comment: result rechecked-NM 0.03 ng/mL: Represents the 99th percentile upper reference limit for normals. >0.03 ng/mL: Elevated cardiac troponin T level indicative of myocardial damage. Diagnosis of acute, evolving or recent HI requires a typical rise and gradual fall [...] consensus document of the Joint Society of Cardiology/[place] College of Cardiology Committee for the redefinition of myocardial infarction. ??Journal of the [place] College of Cardiology 2000; 36: 959-969] Creatine Kinase 576(H) 0 - 200 unit/L CERNER MILLENNIUM Comment:result rechecked-NM Blood specimen (specimen) 02/07/2013 9:55 PM EST 02/07/2013 10:01 PM EST Narrative Resulting Agency Comment Spec In Lab Chaz Babb MD CHEMISTRY ORDERABLES [facility] * (ABNORMAL) CBC (with Diff) (02/07/2013 9:55 PM EST) [facility] White Blood Cell 11.2(H) 4.0 - 10.0 [...] MD HEMATOLOGY ORDERABLE S Performing Organization Address [facility] de Phone Number [facility] [place] * EKG 12 Lead (02/07/2013 9:52 PM EST) Ventricular rate 61 BPM MUSE SYSTEM Atrial Rate 61 BPM MUSE SYSTEM P-R Interval 170 ms MUSE SYSTEM QRS Duration 134 ms MUSE SYSTEM Q-T Interval 444 ms MUSE SYSTEM QTC Calculated (Bezet) 446 ms MUSE SYSTEM Calculated P Palisades 55 degrees MUSE SYSTEM Calculated R Palisades -8 degrees MUSE SYSTEM Calculated T Palisades 39 degrees MUSE SYSTEM INTERPRETATION Normal sinus [...] Babb MD ECG ORDERABLES Performing Organization Address [facility] Co de Phone Number MUSE SYSTEM * Cardiac Catheterization (02/07/2013 9:38 [...] Transthoracic(Leb) (02/07/2013 7:57 PM EST) EF 65 HEARTreQwip SYSTEM Anatomical Region Laterality Modality Other 02/08/2013 Narrative 02/08/2013 9:01 AM EST Procedure: ? Transthoracic Echocardiogram Patient: ? ERLINDA Smith ? (Age): 1945(68) Med Rec#: ?[id number] ? Sex: ?M ? [place] Loc: [place] ? Ht / Wt: ??173(cm)/97(kg) Pt. Loc: ? CCU ?BSA: ?2.16 Study Date: ?02/07/2013 ? Pt. Type: Inpatient Tape: ? Referring: Bobby Watts ([id number]) Track Machine Operator Repairer: Jose Raul Bell Diagnosis:CPT Code(s): ??Echo Full (05962), ??Spectral Doppler (09502), Color Doppler (90086), Indication(s): ??Myocardial infarction Rhythm: Sinus HR ?BP [...] ? Mid-Inferior ?Normal ? Mid-Inferoseptal ?Normal ? Murray-Septal ? Normal ? Murray-Anterior ? Normal ? Murray-Lateral ?Hypokinetic ? Murray-Inferior ? Normal ? Murray-Tip ?Normal ? Chambers ?Value ?Units (Range) ? [...] 02/08/2013 08:59:15 Images reviewed and interpretation verified [facility] Cardiac Ultrasound Laboratory Procedure Note Johnny Silva MD - 02/08/2013 Procedure: Transthoracic Echocardiogram Patient: ERLINDA DARDEN(Age): 1945(68) Med Rec#: [id number] Sex: M Site Loc: [facility] Ht / Wt: 173(cm)/97(kg) Pt. Loc: CCU BSA: 2.16 Study Date: 02/07/2013 Pt. Type: Inpatient Tape: Referring: Bobby Watts ([id number]) Track Machine Operator Repairer: Jose Raul Bell Diagnosis:CPT Code(s): Echo Full (99389), Spectral Doppler (80839), Color Doppler (38284), Indication(s): Myocardial infarction Rhythm: Sinus HR BP [...] change in the inferior vena cava dimension. [facility] [place] Two-dimensional echo, spectral Doppler and color Doppler performed. Wall Motion: Segment Name Rest Base-Anteroseptal Normal Base-Anterior Normal Base-Anterolateral Normal Base-Posterolateral Normal Base-Inferior Normal Base-Inferoseptal Normal Mid-Anteroseptal Normal Mid-Anterior Normal Mid-Anterolateral Normal Mid-Posterolateral Hypokinetic Mid-Inferior Normal Mid-Inferoseptal Normal Murray-Septal Normal Murray-Anterior Normal Murray-Lateral Hypokinetic Murray-Inferior Normal Murray-Tip Normal Chambers Value Units (Range) IVSd 2D 0.9 cm LVIDd 2D 4.1 cm PWd 2D 1.1 cm LVIDs 2D 2.2 cm LVFS 2D 46 % LA area 21 cm2 (<21) RA area 15 cm2 (<18) Ao root 3.8 cm (2.1 to 3.6) This report has been electronically signed by: Johnny Silva MD 02/08/2013 08:59:15 Images reviewed and interpretation verified [facility] Cardiac Ultrasound Laboratory Andres Pryor MD ECHO ORDERABLES * EKG 12 Lead (02/07/2013 4:25 PM EST) Ventricular rate 80 BPM MUSE SYSTEM Atrial Rate 80 BPM MUSE SYSTEM P-R Interval 156 ms MUSE SYSTEM QRS Duration 136 ms MUSE SYSTEM Q-T Interval 414 ms MUSE SYSTEM QTC Calculated (Bezet) 477 ms MUSE SYSTEM Calculated P Palisades 41 degrees MUSE SYSTEM Calculated R Palisades 18 degrees MUSE SYSTEM Calculated T Palisades 23 degrees MUSE SYSTEM INTERPRETATION Normal sinus [...] EST Andres Pryor MD HEMATOLOGY ORDERABL ES CERNER MILLENNIUM * (ABNORMAL) Cardiac Enzymes (02/07/2013 4:24 PM EST) [facility] Troponin-T 0.11(H) <=0.03 ng/mL LEONARD GORDONIUM Comment: 0.03 ng/mL: Represents the 99th percentile upper reference limit for normals. >0.03 ng/mL: Elevated cardiac troponin T level indicative of myocardial damage. Diagnosis of acute, evolving or recent HI requires a typical rise and gradual fall [...] consensus document of the Joint Society of Cardiology/[place] College of Cardiology Committee for the redefinition of myocardial infarction. ??Journal of the [place] College of [employer]iology 2000; 36: 959-969] Creatine Kinase 147 0 - 200 unit/L LEONARD ESPINOSA Blood specimen (specimen) 02/07/2013 4:24 PM EST 02/07/2013 4:29 PM EST Narrative Resulting Agency Comment Spec In Lab Chaz Babb MD CHEMISTRY ORDERABLES Performing Organization Address [facility] Phone Number LEONARD ESPINOSA * Magnesium (02/07/2013 4:24 PM EST) [facility] Magnesium 0.81 0.69 - 1.07 mmol/L LEONARD ESPINOSA Blood specimen (specimen) 02/07/2013 4:24 PM EST 02/07/2013 4:29 PM EST Narrative Resulting Agency Comment Spec In Lab Chaz Babb MD CHEMISTRY ORDERABLES Performing Organization Address [facility] Co de Phone Number LEONARD ESPINOSA * (ABNORMAL) Basic Metabolic Panel (non-fasting) (02/07/2013 4:24 PM EST) Glucose 135 60 - 199 mg/dL CERNER MILLENNIUM Comment:Diabetes: >=200 mg/d L plus symptoms Blood Urea Nitrogen 20 10 - 20 mg/dL CERNER MILLENNIUM Creatinine 0.95 0.80 - 1.50 mg/dL CERNER MILLENNIUM Comment: Please note that the pediatric reference intervals supplied above were not validated at [facility]. Results from pediatric patients should be interpreted [...] In Lab Chaz Babb MD CHEMISTRY ORDERABLES [facility] [place] * (ABNORMAL) CBC (with Diff) (02/07/2013 4:24 [...] Chaz Babb MD HEMATOLOGY ORDERABLE S LEONARD GORDONIUM * Prothrombin Time (02/07/2013 4:24 PM EST) Prothrombin Time 13.3 12.0 - 15.0 sec CERNER MILLENNIUM Comment: [facility] Transfusion Committee Guidelines: INR less than 2.0, [...] Lab Andres Pryor MD HEMATOLOGY ORDERABL ES LEONARD GORDONIUM * Hepatic Function Panel (02/07/2013 4:24 [...] MD CHEMISTRY ORDERABLE S Performing Organization Address [facility] de Phone Number LEONARD GORDONIUM * pro-Brain Natriuretic Peptide (02/07/2013 4:24 PM EST) NT-proBNP 104 <=125 pg/mL CERMARIA ANTONIA MILLENNIUM Blood specimen (specimen) 02/07/2013 4:24 PM EST 02/07/2013 4:29 PM EST Narrative Resulting Agency Comment Spec In Lab Andres Pryor MD CHEMISTRY ORDERABLE S Performing Organization Address [facility] de Phone Number LEONARD GORDONIUM * TSH (02/07/2013 4:24 PM EST) Thyroid Stimulating Hormone 0.94 0.27 - 4.20 mcIU/mL CERMARIA ANTONIA BARBERENNIUM Blood specimen (specimen) 02/07/2013 4:24 PM EST 02/07/2013 4:29 PM EST Narrative Resulting Agency Comment Spec In Lab Andres Pryor MD CHEMISTRY ORDERABLE S Performing Organization Address [facility] de Phone Number LEONARD ESPINOSA * (ABNORMAL) Phosphorus (02/07/2013 4:24 PM EST) Phosphorus 2.3(L) 2.5 - 4.5 mg/dL JANEMARIA ANTONIA BARBERAILYNRAJIV Blood specimen (specimen) 02/07/2013 4:24 PM EST 02/07/2013 4:29 PM EST Narrative Resulting Agency Comment Spec In Lab Andres Pryor MD CHEMISTRY ORDERABLE S LEONARD ESPINOSA * POCT Glucose (02/07/2013 4:01 PM EST) Glucose, POC 133 60 - 199 mg/dL [facility]ARIA ANTONIA [facility] [place] Comment: Supplemental ranges: <110 mg/dL before meals <200 mg/dL all other times of the day Blood specimen (specimen) 02/07/2013 4:01 PM EST 02/07/2013 4:01 PM EST Andres Pryor MD POINT OF CARE TEST ORDERABLES Performing Organization Address [facility] Co de Phone Number LEONARD ESPINOSA documented in this encounter Visit Diagnoses Not on filedocumented in this encounter Administered Medications Inactive Administered Medications - up to 3 most recent administrations Medication Order MAR Action Action Date Dose Rate Site bivalirudin (ANGIOMAX) 250 mg in sodium chloride 0.9% 50 mL infusion 250 mg, CONTINUOUS PRN, Starting on 02/07/13 at 2046, Until Fri02/07/13 at 2146, Intra-Operative (Intra-Procedure) New Bag 02/07/2013 8:47 PM EST 1.75 mg/kg/hr 33.8 mL/hr bivalirudin (ANGIOMAX) injection ONCE PRN, Starting on 02/07/13 at 2044, Until 02/07/13 at 2146, Intra-Operative (Intra-Procedure), Routine Given 02/07/2013 8:45 PM EST 72.8 mg clopidogrel (PLAVIX) tablet ONCE PRN, Starting on 02/07/13 at 2046, Until 02/07/13 at 2146, Intra-Operative (Intra-Procedure), Routine Given 02/07/2013 8:47 PM EST 300 mg fentaNYL 50mcg/mL injection ONCE PRN, Starting on 02/07/13 at 2034, Until Fri02/07/13 at 2146, Pain, Intra-Operative (Intra-Procedure), Routine Given 02/07/2013 8:35 PM EST 25 mcg midazolam (VERSED) injection ONCE PRN, Starting on 02/07/13 at 2034, Until Fri02/07/13 at 2146, Sleep, Intra-Operative (Intra-Procedure), Routine Given 02/07/2013 8:35 PM EST 1 mg niCARdipine (CARDENE) in sodium chloride 0.9% injection ONCE PRN, Starting on 02/07/13 at 2108, Until Fri02/07/13 at 2146, Intra-Operative (Intra-Procedure), Routine Given 02/07/2013 9:09 PM EST 200 mcg nitroGLYCerin 100 mcg/mL intracoronary dilution ONCE PRN, Starting on Fri02/07/13 at 2106, Until Fri02/07/13 at 2146, Intra-Operative (Intra-Procedure), Routine Given 02/07/2013 9:07 PM EST 100 mcg documented in this encounter Active and Recently Administered Medications Times are shown in EST. Scheduled Medication Order 02/07/2013 02/08/2013 02/09/2013 aspirin EC tablet 81 mg 81 mg, Oral, DAILY, First dose on Fri02/09/13 at 0900, Until Discontinued, Routine 0900 (Given - Provider: Hong Bojorquez, OREN) aspirin tablet 325 mg (CANCELED) 325 mg, Oral, DAILY, First dose on Fri02/08/13 at 0900, Until Discontinued, Routine 0808 (Given - Provider: Julita Baer, OREN) atorvastatin (LIPITOR) tablet 80 mg 80 mg, Oral, NIGHTLY, First dose on Fri02/07/13 at 2100, Until Discontinued, Routine 2224 (Given - Provider: Debbie Esocbar, RN) 2029 (Given - Provider: Trisha Greene, OREN) clopidogrel (PLAVIX) tablet 300 mg (CANCELED) 300 mg, Oral, DAILY, 1 dose, First dose (after last modification) on 02/07/13 at 1830, Please administer after revascularization., Routine 2047 (Given by Other - Provider: Debbie Escobar RN - Comment: in labeling associate) clopidogrel (PLAVIX) tablet 75 mg 75 mg, Oral, DAILY, First dose on Fri02/08/13 at 0900, Until Discontinued, Routine 0808 (Given - Provider: Julita Baer RN) 0900 (Given - Provider: Hong Bojorquez, OREN) diaZEPam (VALIUM) tablet 5 mg (COMPLETED) 5 mg, Oral, ONCE, 1 dose, On Fri02/07/13 at 2030, Routine 1999 (Given - Provider: Debbie Escobar RN) diphenhydrAMINE (BENADRYL) capsule 25 mg (COMPLETED) 25 mg, Oral, ONCE, 1 dose, On Fri02/07/13 at 2030, Routine 1999 (Given - Provider: Debbie Escobar RN) magnesium oxide (MAG-OX) tablet 400 mg (CANCELED) 400 mg, Oral, 2 TIMES DAILY, 2 doses, First dose on Fri02/09/13 at 0900, Last dose on Fri02/09/13 at 2100, Routine 0900 (Given - Provider: Hong Bojorquez RN) metoprolol (LOPRESSOR) tablet 12.5 mg (CANCELED) 12.5 mg, Oral, EVERY 6 HOURS SCHEDULED, First dose on Fri02/07/13 at 1800, Until Discontinued, Routine 1725 (Given - Provider: Ted Layton RN) 0200 (Given - Provider: Debbie Escobar RN)0808 (Given - Provider: Julita Baer RN)1200 (Given - Provider: Ya Kelly RN)1803 (Given - Provider: Ya Kelly RN) 0030 (Given - Provider: Trisha Greene RN)0643 (Given - Provider: Trisha Greene RN)1200 (Due) pantoprazole (PROTONIX) tablet 40 mg 40 [...] Routine 1000 (Given - Provider: Julita Baer RN)2029 (Given - Provider: Trisha Greene, OREN) sodium chloride 0.9 % flush 5 mL (CANCELED) 5 mL, Intravenous, EVERY 12 HOURS, First dose on Fri02/07/13 at 1645, Until Discontinued 1645 (Given - Provider: Ted Layton RN) 0445 (Given - Provider: Debbie Escobar RN)1645 (Given - Provider: Ya Kelly RN)1999 (Given - Provider: Trisha Greene, OREN) Continuous [...] than 145 sec X 2 - call warehouse traffic supervisor See Bolus dosing guidance for aPTT values less than 80 seconds under PRN medications, Routine 1600 (Rate/Dose Verify - Provider: Ted Layton RN - Comment: Pt arrived via ambulance with heparin gtt @ 1000units/hr)1999 (Rate/Dose Verify - Provider: Debbie Escobar RN)2014 (Stopped - Provider: Debbie Escobar RN) nitroGLYcerin 50 mg in dextrose 5% 250 mL infusion (CANCELED) 0-20 mcg/min (rounded to 0-6 mL/hr), Intravenous, CONTINUOUS, Starting on 02/07/13 at 1715, Until 02/07/13 at 2146, Maximum dose: 200 mcg/min, Routine 1600 (Rate/Dose Verify - Provider: Ted Layton RN - Comment: Pt arrived on NTG gtt at 10mcq/min)2000 (Rate/Dose Verify - Provider: Debbie Escobar RN) PRN Medication Order 02/07/2013 02/08/2013 02/09/2013 bivalirudin (ANGIOMAX) 250 mg in sodium chloride 0.9% 50 mL infusion (CANCELED) 250 mg, CONTINUOUS PRN, Starting on 02/07/13 at 2046, Until 02/07/13 at 2146, Intra-Operative (Intra-Procedure) 2046 (New Bag - Provider: Cristian Lara RN)2111 (Stopped - Provider: Cristian Lara RN) bivalirudin (ANGIOMAX) injection (CANCELED) ONCE PRN, Starting on 02/07/13 at 2044, Until 02/07/13 at 2146, Intra-Operative (Intra-Procedure), Routine 2044 (Given - Provider: Cristian Lara RN) clopidogrel (PLAVIX) tablet (CANCELED) ONCE PRN, Starting on 02/07/13 at 2046, Until 02/07/13 at 2146, Intra-Operative (Intra-Procedure), Routine 2046 (Given - Provider: Cristian Lara, OREN) fentaNYL 50mcg/mL injection (CANCELED) ONCE PRN, Starting on 02/07/13 at 2034, Until 02/07/13 at 2146, Pain, Intra-Operative (Intra-Procedure), Routine 2034 (Given - Provider: Cristian Lara, OREN) metoprolol (LOPRESSOR) injection 5 mg (COMPLETED) 5 mg, Intravenous, EVERY 5 MIN PRN, 1 dose, Starting on 02/07/13 at 1638, Until 02/07/13 at 1640, High Blood Pressure, Chest pain 1640 (Given - Provider: Ted Layton RN) midazolam (VERSED) injection (CANCELED) ONCE PRN, Starting on 02/07/13 at 2034, Until 02/07/13 at 2146, Sleep, Intra-Operative (Intra-Procedure), Routine 2034 (Given - Provider: Cristian Lara RN) niCARdipine (CARDENE) in sodium chloride 0.9% injection (CANCELED) ONCE PRN, Starting on Fri02/07/13 at 2109, Until Fri02/07/13 at 2146, Intra-Operative (Intra-Procedure), Routine 2108 (Given - Provider: [...] intracoronary dilution (CANCELED) ONCE PRN, Starting on Fri02/07/13 at 210, Until Fri02/07/13 at 2146, Intra-Operative (Intra-Procedure), Routine 2106 (Given - Provider: Jovan Reed II) documented in this encounter Care Teams Destaticizer Feeder Relationship Specialty Start Date End Date Trell Cade MD [address] [place] [address] PCP - General 02/07/13 08/23/19 documented as of this encounter
--- OUTSIDE RECORDS SUMMARY | 2024-02-05 09:30 | XMS_ITS | Encounter Summary ---
Author Organization [facility] Address [facility] [place] [address] Care Team Providers Care Vending Service Technician Name Role Phone Trell Cade MD Primary Care Provider [phone] Encounter Details Date Type Department Care Team (Late st Contact Info) Description 02/07/2013 Orders Only Cardiology at [address] [id number] Andres Pryor MD [facility] [place] [address] Social History Tobacco Use Types Packs/Day Years Used Date Smoking Tobacco: Former Alcohol Use Standard Drinks/Week Comments No 0 (1 standard drink = 0.6 oz pur e alcohol) Sex and Gender Information Value Date Recorded Sex Assigned at Not on file Gender Identity Not on file Sexual Orientation Not on file documented as of this encounter Plan of Treatment Pending Results Name Type Priority Associated Diagnoses Date /Time Film Library- Storage only DX Chest Imaging Routine 02/07/2013 2:11 PM EST documented as of this encounter Visit Diagnoses Not on filedocumented in this encounter Care Teams Vending Service Technician Relationship Specialty Start Date End Date Trell Cade MD [address] [place] [address] PCP - General 02/07/13 08/23/19 documented as of this encounter
[2024-02-05 12:22] VITALS: BP 132/71; PULSE 77
[2024-02-10 09:05] VITALS: BP 134/73; PULSE 94
[2024-02-12 09:36] VITALS: BP 130/67; PULSE 91
[2024-02-17 09:12] VITALS: BP 154/76; PULSE 71
[2024-02-19 09:04] VITALS: BP 130/68; PULSE 62; O2SAT 96
[2024-02-24 09:22] VITALS: BP 121/70; PULSE 90
== END 2024-02-24 23:59 | disposition home or self-care (01) ==
LOC: CR 09:21
PROVIDERS: PCP Nurse Practitioner Family; Visit Provider Internal Medicine Cardiovascular Disease
DX: R69 Illness, unspecified (principal)

== ENCOUNTER 2024-03-25 09:01 | Outpatient (RCR) | payer SELFPAY ==
[2024-02-25 00:05] VITALS: BP 130/56; PULSE 70
[2024-02-26 09:04] VITALS: BP 152/72; PULSE 74
[2024-03-02 09:07] VITALS: BP 155/73; PULSE 81
[2024-03-04 10:42] VITALS: BP 129/77; PULSE 86
[2024-03-09 09:20] VITALS: BP 127/66; PULSE 79
[2024-03-11 09:31] VITALS: BP 137/70; PULSE 77
[2024-03-16 09:46] VITALS: BP 133/70; PULSE 100
[2024-03-18 09:05] VITALS: BP 138/70; PULSE 90
[2024-03-23 09:14] VITALS: BP 150/76; PULSE 84
[2024-03-25 09:08] VITALS: BP 128/66; PULSE 82; O2SAT 93
== END 2024-03-26 23:59 | disposition home or self-care (01) ==
LOC: CR 09:01
PROVIDERS: PCP Nurse Practitioner Family; Visit Provider Internal Medicine Cardiovascular Disease
DX: R69 Illness, unspecified (principal)

== ENCOUNTER 2024-05-20 09:03 | Outpatient (RCR) | payer SELFPAY ==
[2024-03-27 00:16] VITALS: BP 130/56; PULSE 70
[2024-05-04 09:37] VITALS: BP 138/71; PULSE 68
[2024-05-06 09:01] VITALS: BP 120/58; PULSE 72; O2SAT 95
[2024-05-11 09:30] VITALS: BP 145/70; PULSE 70
[2024-05-13 09:18] VITALS: BP 126/72; PULSE 75
[2024-05-18 08:59] VITALS: BP 134/73; PULSE 77
[2024-05-20 09:13] VITALS: BP 139/68; PULSE 75; O2SAT 95
== END 2024-05-24 23:59 | disposition home or self-care (01) ==
LOC: CR 09:03
PROVIDERS: PCP Nurse Practitioner Family; Visit Provider Internal Medicine Cardiovascular Disease
DX: R69 Illness, unspecified (principal)

== ENCOUNTER 2024-06-01 09:54 | Outpatient (CLI) | payer MEDICARE, BC, SELFPAY ==
--- NOTE | 2024-06-01 10:00 | RT.EKG_ITS ---
APPROVED REPORT Exam: Resting ECG Reason for Exam: Follow up needed Patient Location: O HR:66 bpm ECG Measurements Heart Rate 66 AXIS NV 161 P 26 QRSd 141 QRS -5 QT 400 T 27 QTc 420 Conclusion Sinus rhythm...normal P axis, V-rate 50- 99 Right bundle branch block...QRSd>120, terminal axis(90,270)
== END 2024-06-01 09:55 | disposition home or self-care (01) ==
LOC: DI.CARD 10:02
PROVIDERS: PCP Nurse Practitioner Family; Referring Provider Nurse Practitioner Family; Visit Provider Internal Medicine Cardiovascular Disease
DX: I10 Essential (primary) hypertension (principal); R60.9 Edema, unspecified; I45.10 Unspecified right bundle-branch block
CPT/HCPCS: 93010

== ENCOUNTER → 2024-06-01 09:54 | Outpatient (BNVA) | payer MEDICARE, BC, SELFPAY | PROVIDERS: PCP Nurse Practitioner Family; Referring Provider Nurse Practitioner Family; Visit Provider Internal Medicine Cardiovascular Disease | DX: I45.10 Unspecified right bundle-branch block (principal); I25.10 Atherosclerotic heart disease of native coronary artery without angina pectoris; R60.0 Localized edema | CPT/HCPCS: 93005; 99214 ==

== ENCOUNTER 2024-06-22 09:07 | Outpatient (RCR) | payer SELFPAY ==
[2024-05-25 00:01] VITALS: BP 130/56; PULSE 70
[2024-05-25 09:32] VITALS: BP 147/71; PULSE 77
[2024-05-27 09:02] VITALS: BP 134/73; PULSE 71; O2SAT 95
[2024-06-01 09:06] VITALS: BP 139/66; PULSE 82
[2024-06-03 09:01] VITALS: BP 131/65; PULSE 66; O2SAT 95
[2024-06-08 09:36] VITALS: BP 141/70; PULSE 79
[2024-06-10 09:35] VITALS: BP 143/64; PULSE 64
[2024-06-15 09:08] VITALS: BP 139/60; PULSE 68
[2024-06-17 09:07] VITALS: BP 138/55; PULSE 68
[2024-06-22 09:08] VITALS: BP 134/67; PULSE 68
== END 2024-06-23 23:59 | disposition home or self-care (01) ==
LOC: CR 09:07
PROVIDERS: PCP Nurse Practitioner Family; Visit Provider Internal Medicine Cardiovascular Disease
DX: R69 Illness, unspecified (principal)

== ENCOUNTER 2024-07-22 09:24 | Outpatient (RCR) | payer SELFPAY ==
[2024-06-24 00:03] VITALS: BP 130/56; PULSE 70
[2024-06-24 09:14] VITALS: BP 131/77; PULSE 70
[2024-06-29 09:29] VITALS: BP 137/66; PULSE 74
[2024-07-01 10:17] VITALS: BP 118/55; PULSE 67
[2024-07-06 09:43] VITALS: BP 139/70; PULSE 66
[2024-07-08 09:14] VITALS: BP 149/69; PULSE 78
[2024-07-13 10:13] VITALS: BP 135/57; PULSE 80
[2024-07-15 09:21] VITALS: BP 129/53; PULSE 63
[2024-07-20 09:04] VITALS: BP 134/67; PULSE 75
[2024-07-22 09:26] VITALS: BP 148/72; PULSE 73
== END 2024-07-24 23:59 | disposition home or self-care (01) ==
LOC: CR 09:24
PROVIDERS: PCP Nurse Practitioner Family; Visit Provider Internal Medicine Cardiovascular Disease
DX: R69 Illness, unspecified (principal)

== ENCOUNTER 2024-08-19 09:00 | Outpatient (RCR) | payer SELFPAY ==
[2024-07-25 00:04] VITALS: BP 130/56; PULSE 70
[2024-07-27 09:15] VITALS: BP 134/68; PULSE 70
[2024-07-29 09:14] VITALS: BP 136/61; PULSE 68
[2024-08-03 09:18] VITALS: BP 140/74; PULSE 76
[2024-08-05 09:35] VITALS: BP 147/67; PULSE 71
[2024-08-10 10:05] VITALS: BP 143/68; PULSE 68
[2024-08-12 10:37] VITALS: BP 127/74; PULSE 71
[2024-08-17 09:15] VITALS: BP 127/68; PULSE 77
[2024-08-19 09:18] VITALS: BP 143/73; PULSE 76
== END 2024-08-23 23:59 | disposition home or self-care (01) ==
LOC: CR 09:00
PROVIDERS: PCP Nurse Practitioner Family; Visit Provider Internal Medicine Cardiovascular Disease
DX: R69 Illness, unspecified (principal)

== ENCOUNTER 2024-09-23 09:00 | Outpatient (RCR) | payer SELFPAY ==
[2024-08-24 00:17] VITALS: BP 143/73; PULSE 76
[2024-08-24 09:30] VITALS: BP 148/72; PULSE 75
[2024-08-26 09:12] VITALS: BP 150/70; PULSE 80; O2SAT 94
[2024-08-31 09:30] VITALS: BP 130/77; PULSE 92
[2024-09-02 09:06] VITALS: BP 137/70; PULSE 78
[2024-09-07 09:16] VITALS: BP 144/73; PULSE 78
[2024-09-09 09:19] VITALS: BP 138/57; PULSE 64
[2024-09-14 09:12] VITALS: BP 152/69; PULSE 73
[2024-09-16 09:15] VITALS: BP 144/65; PULSE 66
[2024-09-21 09:19] VITALS: BP 133/70; PULSE 68
[2024-09-23 09:20] VITALS: BP 141/66; PULSE 87
== END 2024-09-23 23:59 | disposition home or self-care (01) ==
LOC: CR 09:00
PROVIDERS: PCP Nurse Practitioner Family; Visit Provider Internal Medicine Cardiovascular Disease
DX: R69 Illness, unspecified (principal)

== ENCOUNTER 2024-10-21 09:00 | Outpatient (RCR) | payer SELFPAY ==
[2024-09-24 00:21] VITALS: BP 141/66; PULSE 87
[2024-09-28 09:12] VITALS: BP 137/65; PULSE 68
[2024-09-30 09:44] VITALS: BP 136/62; PULSE 69
[2024-10-05 09:00] VITALS: BP 129/60; PULSE 67
[2024-10-07 09:18] VITALS: BP 136/71; PULSE 62
[2024-10-12 09:36] VITALS: BP 149/67; PULSE 66
[2024-10-14 09:04] VITALS: BP 148/62; PULSE 79
[2024-10-19 09:21] VITALS: BP 124/71; PULSE 64
[2024-10-21 09:04] VITALS: BP 136/60; PULSE 60
== END 2024-10-24 23:59 | disposition home or self-care (01) ==
LOC: CR 09:00
PROVIDERS: PCP Nurse Practitioner Family; Visit Provider Internal Medicine Cardiovascular Disease
DX: R69 Illness, unspecified (principal)

== ENCOUNTER 2024-11-18 09:00 | Outpatient (RCR) | payer SELFPAY ==
[2024-10-26 09:41] VITALS: BP 139/69; PULSE 71
[2024-10-28 09:26] VITALS: BP 142/72; PULSE 70
[2024-11-02 09:29] VITALS: BP 152/57; PULSE 67
[2024-11-04 09:26] VITALS: BP 139/76; PULSE 77
[2024-11-09 10:43] VITALS: BP 147/66; PULSE 73
[2024-11-11 15:09] VITALS: BP 133/64; PULSE 87
[2024-11-16 09:11] VITALS: BP 143/61; PULSE 69
[2024-11-18 09:01] VITALS: BP 136/69; PULSE 87
== END 2024-11-23 23:59 | disposition home or self-care (01) ==
LOC: CR 09:00
PROVIDERS: PCP Nurse Practitioner Family; Visit Provider Internal Medicine Cardiovascular Disease
DX: R69 Illness, unspecified (principal)

== ENCOUNTER 2024-12-23 09:00 | Outpatient (RCR) | payer SELFPAY ==
[2024-11-24 00:20] VITALS: BP 136/69; PULSE 87
[2024-11-25 10:27] VITALS: BP 146/67; PULSE 91
[2024-11-30 09:10] VITALS: BP 127/69; PULSE 74
[2024-12-07 09:26] VITALS: BP 135/57; PULSE 61
[2024-12-09 09:01] VITALS: BP 151/66; PULSE 80
[2024-12-14 09:06] VITALS: BP 142/68; PULSE 70
[2024-12-16 09:12] VITALS: BP 144/59; PULSE 63
[2024-12-21 09:20] VITALS: BP 140/62; PULSE 68
[2024-12-23 09:10] VITALS: BP 130/61; PULSE 69; O2SAT 95
== END 2024-12-24 23:59 | disposition home or self-care (01) ==
LOC: CR 09:00
PROVIDERS: PCP Nurse Practitioner Family; Visit Provider Internal Medicine Cardiovascular Disease
DX: R69 Illness, unspecified (principal)

== ENCOUNTER 2025-02-01 01:22 | Outpatient (CLI) | payer BC, MEDICARE, SELFPAY ==
[2025-02-01 10:40] LABS: Hemoglobin A1C 5.8 % (<5.7)
[2025-02-01 11:20] LABS: Anion Gap 8.6 mmol/L (3-11); BUN 20 mg/dL (9-23); CO2 26.4 mmol/L (20.0-31.0); Calcium 10.0 mg/dL (8.3-10.6); Chloride 109 mmol/L (98-107); Glucose 105 mg/dL (74-106); Potassium 4.4 mmol/L (3.5-5.1); Sodium 144 mmol/L (136-145)
== END 2025-02-01 01:23 | disposition home or self-care (01) ==
LOC: LBO 01:22
PROVIDERS: PCP Nurse Practitioner Family; Visit Provider Nurse Practitioner Family
DX: I10 Essential (primary) hypertension (principal); Z13.1 Encounter for screening for diabetes mellitus
CPT/HCPCS: 36415; 80048; 83036

== ENCOUNTER 2025-02-22 09:00 | Outpatient (RCR) | payer SELFPAY ==
[2025-01-24 00:16] VITALS: BP 144/66; PULSE 80
[2025-01-25 10:26] VITALS: BP 135/72; PULSE 80
[2025-01-27 09:38] VITALS: BP 146/63; PULSE 75
[2025-02-01 09:30] VITALS: BP 153/61; PULSE 62
[2025-02-03 09:12] VITALS: BP 139/64; PULSE 76
[2025-02-08 09:07] VITALS: BP 162/64; PULSE 72
[2025-02-10 09:26] VITALS: BP 146/69; PULSE 64
[2025-02-15 09:37] VITALS: BP 139/70; PULSE 61
[2025-02-22 09:37] VITALS: BP 142/69; PULSE 64
== END 2025-02-23 23:59 | disposition home or self-care (01) ==
LOC: CR 09:00
PROVIDERS: PCP Nurse Practitioner Family; Visit Provider Internal Medicine Cardiovascular Disease
DX: R69 Illness, unspecified (principal)